=== PATIENT | female | born 1985 | race Caucasian/White ===

== ENCOUNTER 2016-08-28 09:44 | Emergency (ER) | payer OTHER ==
--- NOTE | 2016-08-28 10:09 | ED ---
General Adult HPI - General Chief complaint: Psychiatric Symptoms Stated complaint: Mental Health Time Seen by Provider: 08/28/16 09:57 Source: patient, RN notes reviewed Mode of arrival: ambulatory Limitations: no limitations - History of Present Illness Initial comments: Patient 31-year-old female who presents emergency room today with a chief complaint of suicidal ideation. She denies any specific plan states she is having thoughts of hurting herself. She states that increased yesterday. States she's been feeling down and depressed since the first the year when her boyfriend of 15 years overdosed. Patient states there is a counselor that she does follow-up with your [place] a regular basis. She denies any homicidal thoughts or plans. She denies any other physical complaints. Patient denies any recent fever, chills, shortness of breath, chest pain, back pain, abdominal pain, nausea or vomiting, numbness or tingling, dysuria or hematuria, constipation or diarrhea, headaches or visual changes, or any other complaints. - Related Data Home Medications Medication Instructions Recorded Confirmed Methadone HCl [Methadone Intensol] 85 mg PO QAM 04/18/16 08/28/16 Penicillin V Potassium [Pen Vee K] 500 mg PO QID 04/18/16 08/28/16 Allergies Allergy/AdvReac Type Severity Reaction Status Date / Time No Known Allergies Allergy Verified 08/28/16 10:33 Review of Systems ROS Statement: Those systems with pertinent positive or pertinent negative responses have been documented in the HPI. ROS Other: All systems not noted in ROS Statement are negative. Past Medical History Past Medical History: No Reported History Additional Past Medical History / Comment(s): migraine History of Any Multi-Drug Resistant Organisms: None Reported Past Surgical History: No Surgical Hx Reported Past Psychological History: Anxiety, Depression Smoking Status: Current every day smoker Past Alcohol Use History: None Reported Past Drug Use History: Heroin General Exam - General Exam Comments Initial Comments: General: The patient is awake and alert, in no distress, and does not appear acutely ill. Eye: Pupils are equal, round and reactive to light, extra-ocular movements are intact. No nystagmus. There is normal conjunctiva bilaterally. No signs of icterus. Ears, nose, mouth and throat: There are moist mucous membranes and no oral lesions. Neck: The neck is supple, there is no tenderness or JVD. Cardiovascular: There is a regular rate and rhythm. No murmur, rub or gallop is appreciated. Respiratory: Lungs are clear to auscultation, respirations are non-labored, breath sounds are equal. No wheezes, stridor, rales, or rhonchi. Musculoskeletal: Normal ROM, no tenderness. Strength 5/5. Sensation intact. Pulses equal bilaterally 2+. Neurological: A&O x 3. CN II-XII intact, There are no obvious motor or sensory deficits. Coordination appears grossly intact. Speech is normal. Skin: Skin is warm and dry and no rashes or lesions are noted. Psychiatric: Cooperative, appropriate mood & affect, normal judgment. Limitations: no limitations Course Vital Signs 08/28/16 09:48 Temperature 98.3 F Pulse Rate 101 H Respiratory 18 Rate Blood Pressure 136/93 O2 Sat by Pulse 97 Oximetry Medical Decision Making - Medical Decision Making Patient has been examined here in the emergency room by mental. The recommendation at patient can follow up outpatient. Patient is comfortable with this plan. They plan follow-up with her tomorrow. Patient has been advised that she may return to emergency room at any time if any symptoms increase or worsen. She states understanding and is in agreement. - Lab Data Lab Results 08/28/16 08/28/16 Range/Units 10:25 10:25 Urine HCG, Qual Not Detected (Not Detectd) Urine Opiates Screen Not Detected (NotDetected) Ur Oxycodone Screen Not Detected (NotDetected) Urine Methadone Screen Detected H (NotDetected) Ur Propoxyphene Screen Not Detected (NotDetected) Ur Barbiturates Screen Not Detected (NotDetected) U Tricyclic Antidepress Not Detected (NotDetected) Ur Phencyclidine Scrn Not Detected (NotDetected) Ur Amphetamines Screen Not Detected (NotDetected) U Methamphetamines Scrn Not Detected (NotDetected) U Benzodiazepines Scrn Not Detected (NotDetected) Urine Cocaine Screen Not Detected (NotDetected) U Marijuana (THC) Screen Not Detected (NotDetected) Disposition Clinical Impression: Depression Disposition: HOME SELF-CARE Condition: Stable Instructions: Depression (ED) Additional Instructions: Please follow-up with mental health as discussed. Please return here to emergency room if any symptoms increase or worsen or for any other concerns. Time of Disposition: 12:56
[2016-08-28 13:16] VITALS: BP 110/57; PULSE 74; RESP 16; TEMP 97.7
== END 2016-08-28 13:16 | disposition home or self-care (01) ==
LOC: EC 09:44
DX: F32.9 Major depressive disorder, single episode, unspecified (principal); Z79.899 Other long term (current) drug therapy; F17.200 Nicotine dependence, unspecified, uncomplicated
CPT/HCPCS: 80306; 81025; 82075; 99285

== ENCOUNTER 2016-11-15 14:30 | Emergency (ER) | payer OTHER ==
[2016-11-15 14:54] VITALS: TEMP 100.3
[2016-11-15] MEDS ORDERED: SODIUM CHLORIDE 0.9% 1,000 ML IV ONE (15:03)
[2016-11-15] MEDS ORDERED: diphenhydrAMINE 50 MG/ML 1 ML VIAL IVP STA (15:03)
[2016-11-15] MEDS ORDERED: KETOROLAC 30 MG/ML 1 ML VIAL IVP STA (15:03)
[2016-11-15] MEDS ORDERED: PROMETHAZINE INJ 25 MG in SODIUM CHLORIDE 0.9% 50 ML IVPB STA (15:03)
--- NOTE | 2016-11-15 15:05 | ED ---
General Adult HPI - General Chief complaint: Headache Stated complaint: Migraine Time Seen by Provider: 11/15/16 14:55 Source: patient, RN notes reviewed Mode of arrival: ambulatory Limitations: no limitations - History of Present Illness Initial comments: 31-year-old female presenting for headache. Patient states that this feels similar to her prior migraine-type headaches. She states she hasn't had a migraine in several months. She has not tried any medication at this point. She states she woke up with a headache today and has been persistent throughout the day. She denies any focal neurological deficits. She also states she's had some nausea and vomiting associated. She denies any abdominal pain. She states she feels some chills but denies any specific fevers. She denies any cough or shortness of breath or chest pain. - Related Data Home Medications Medication Instructions Recorded Confirmed Methadone HCl [Methadone Intensol] 85 mg PO QAM 04/18/16 11/15/16 Previous Rx's Medication Instructions Recorded Ibuprofen [Motrin] 800 mg PO Q8HR PRN #21 tab 11/15/16 Prochlorperazine [Compazine] 10 mg PO Q8H PRN #12 tab 11/15/16 diphenhydrAMINE [Benadryl] 25 mg PO TID PRN #12 capsule 11/15/16 Allergies Allergy/AdvReac Type Severity Reaction Status Date / Time No Known Allergies Allergy Verified 11/15/16 15:49 Review of Systems ROS Statement: Those systems with pertinent positive or pertinent negative responses have been documented in the HPI. ROS Other: All systems not noted in ROS Statement are negative. Past Medical History Past Medical History: No Reported History Additional Past Medical History / Comment(s): migraine History of Any Multi-Drug Resistant Organisms: None Reported Past Surgical History: No Surgical Hx Reported Past Psychological History: Anxiety, Depression Smoking Status: Current every day smoker Past Alcohol Use History: None Reported Past Drug Use History: Heroin General Exam - General Exam Comments Initial Comments: General: Awake and Alert. No acute distress. Does not appear acutely ill. Eyes: MICHELE, EOM intact. No nystagmus. No scleral icterus. HENT: Atraumatic, normocephalic. Mucous membranes moist. Trachea midline. Neck: The neck is supple, there is no tenderness or JVD. Cardiovascular: Regular rate and rhythm. No murmur, rub, or gallop is appreciated. Distal pulses intact. Respiratory: Lungs are clear to auscultation bilaterally. No wheezes, rales, rhonchi. No respiratory distress. Gastrointestinal: Soft, Nontender. No rebound or guarding. Non-distended. No masses or organomegaly noted. No CVA tenderness. Musculoskeletal: No tenderness. Normal ROM. No gross deformity. No strength deficits. Neurological: A&Ox3. CN II-XII grossly intact, There are no obvious motor or sensory deficits. Coordination appears grossly intact. Speech is normal. Skin: Skin is warm and dry and no rashes or lesions are noted. Psychiatric: Cooperative, appropriate mood & affect, normal judgment. Limitations: no limitations Course Vital Signs 11/15/16 11/15/16 11/15/16 14:53 16:00 16:45 Temperature 100.3 F H Pulse Rate 108 H 83 79 Respiratory 20 16 16 Rate Blood Pressure 108/61 100/53 107/57 O2 Sat by Pulse 99 94 L 93 L Oximetry Medical Decision Making - Medical Decision Making 31-year-old female presenting for headache. Patient with history of migraines similar headaches in the past. No neurological deficits noted on exam. Initial vitals are noted to have low-grade fever and tachycardia. No meningeal signs on exam. Exam with lower suspicion for meningitis this time, however basic lab work and influenza testing were ordered. Headache cocktail and IV fluids ordered. Lab work with leukocytosis of uncertain etiology this time, may be reactive to nausea and vomiting. BMP stable. Influenza negative. Patient was reevaluated and states her headache is significantly improved. States she is feeling much better overall. Updated on results and nonspecific leukocytosis. Discussed in the setting of low-grade fever concern for possible meningitis, although clinical symptoms with lower suspicion at this time as well as with resolution of headache. Patient was offered LP at this time, patient declines. Shared decision-making for home trial of medications for symptomatically management. Discussed immediate return to the ED with any worsening symptoms or high fevers for reevaluation and LP at that time. Discussed close follow-up with PCP. Discussed concerning signs symptoms requiring immediate return to the ED. Patient is agreeable with plan and discharge home. - Lab Data Result diagrams: 11/15/16 15:22 11/15/16 15:22 Lab Results 11/15/16 11/15/16 11/15/16 Range/Units 15:21 15:22 15:22 WBC 14.8 H (3.8-10.6) k/uL RBC 4.57 (3.80-5.40) m/uL Hgb 13.8 (11.4-16.0) gm/dL Hct 40.1 (34.0-46.0) % MCV 87.8 (80.0-100.0) fL MCH 30.3 (25.0-35.0) pg MCHC 34.5 (31.0-37.0) g/dL RDW 12.6 (11.5-15.5) % Plt Count 260 (150-450) k/uL Neutrophils % 91 % Lymphocytes % 4 % Monocytes % 3 % Eosinophils % 1 % Basophils % 0 % Neutrophils # 13.5 H (1.3-7.7) k/uL Lymphocytes # 0.6 L (1.0-4.8) k/uL Monocytes # 0.5 (0-1.0) k/uL Eosinophils # 0.1 (0-0.7) k/uL Basophils # 0.1 (0-0.2) k/uL Sodium 140 (137-145) mmol/L Potassium 5.0 (3.5-5.1) mmol/L Chloride 102 (98-107) mmol/L Carbon Dioxide 27 (22-30) mmol/L Anion Gap 11 mmol/L BUN 12 (7-17) mg/dL Creatinine 0.67 (0.52-1.04) mg/dL Est GFR (MDRD) Af Amer >60 (>60 ml/min/1.73 sqM) Est GFR (MDRD) Non-Af >60 (>60 ml/min/1.73 sqM) Glucose 90 (74-99) mg/dL Calcium 9.6 (8.4-10.2) mg/dL Influenza Type A RNA Not Detected (Not Detectd) Influenza Type B (PCR) Not Detected (Not Detectd) Disposition Clinical Impression: Nonintractable headache, Leukocytosis, Nausea and vomiting Disposition: HOME SELF-CARE Condition: Stable Instructions: Acute Headache (ED), Acute Nausea and Vomiting (ED) Additional Instructions: If your symptoms worsen or you start spiking high fevers, please return to the ER right away for reevaluation and possible lumbar puncture to rule out meningitis. Prescriptions: Ibuprofen [Motrin] 800 mg PO Q8HR PRN #21 tab PRN Reason: Pain Prochlorperazine [Compazine] 10 mg PO Q8H PRN #12 tab PRN Reason: headache with benadryl diphenhydrAMINE [Benadryl] 25 mg PO TID PRN #12 capsule PRN Reason: headache with compazine Referrals: None,Stated [Primary Care Provider] - 1-2 days Time of Disposition: 17:00
[2016-11-15 15:42] LABS: Anion Gap 11 mmol/L; Blood Urea Nitrogen 12 mg/dL (7-17); Calcium 9.6 mg/dL (8.4-10.2); Carbon Dioxide 27 mmol/L (22-30); Chloride 102 mmol/L (98-107); Glucose 90 mg/dL (74-99); Non-African American GFR(MDRD) >60 (>60 ml/min/1.73 sqM); Sodium 140 mmol/L (137-145)
[2016-11-15 16:07] LABS: Basophils # (A) 0.1 k/uL (0-0.2); Basophils % (A) 0 %; CH 28.9; Eosinophils # (A) 0.1 k/uL (0-0.7); Eosinophils % (A) 1 %; HCT 40.1 % (34.0-46.0); HDW 2.46; HGB 13.8 gm/dL (11.4-16.0); Luc % (Auto) 1; Lymphocytes # (A) 0.6 k/uL (1.0-4.8); Lymphocytes % (A) 4 %; MCH 30.3 pg (25.0-35.0); MCHC 34.5 g/dL (31.0-37.0); MCV 87.8 fL (80.0-100.0); Mean Platelet Volume 6.6; Monocytes # (A) 0.5 k/uL (0-1.0); Monocytes % (A) 3 %; Neutrophils # (A) 13.5 k/uL (1.3-7.7); Neutrophils % (A) 91 %; RBC 4.57 m/uL (3.80-5.40); RDW 12.6 % (11.5-15.5); WBC 14.8 k/uL (3.8-10.6); WBC (Perox) 14.82
[2016-11-15 16:45] VITALS: RESP 16
[2016-11-15 16:46] VITALS: BP 107/57; PULSE 79
== END 2016-11-15 16:52 | disposition home or self-care (01) ==
LOC: EC 14:30
DX: R51 Headache (principal); D72.829 Elevated white blood cell count, unspecified; R11.2 Nausea with vomiting, unspecified; F17.200 Nicotine dependence, unspecified, uncomplicated; Z79.891 Long term (current) use of opiate analgesic
CPT/HCPCS: 36415; 80048; 85025; 87502; 99284; 96374; 96375 ×2; 96361; J1200; J2550; J1885

== ENCOUNTER 2016-11-16 09:51 | Emergency (ER) | payer OTHER ==
[2016-11-16 10:01] VITALS: RESP 18
[2016-11-16] MEDS ORDERED: METOCLOPRAMIDE 5 MG/ML 2 ML VIAL IVP STA (10:22)
[2016-11-16] MEDS ORDERED: KETOROLAC 30 MG/ML 1 ML VIAL IVP STA (10:22)
[2016-11-16] MEDS ORDERED: SODIUM CHLORIDE 0.9% 1,000 ML IV STA ×2 (10:22)
[2016-11-16] MEDS ORDERED: DEXAMETHASONE SOD PHOSPHATE 10 MG/ML 1 ML VIAL IV STA (10:23)
[2016-11-16] MEDS ORDERED: MAGNESIUM SULFATE-D5W PMX 1 GM in DEXTROSE/WATER 1 100ML.BAG IVPB ONE (10:23)
--- NOTE | 2016-11-16 10:30 | ED ---
Headache HPI - General Chief Complaint: Headache Stated Complaint: Headache Time Seen by Provider: 11/16/16 10:03 Mode of arrival: ambulatory Limitations: no limitations - History of Present Illness Initial Comments: This 31-year-old white female presents complaining of a headache. She states it is a pressure-like intermittent headache. She has had it intermittently for the last 1 week. Is more in the frontal region. It was gradual in onset. She does have a history of migraine headaches and this is very similar to her previous migraine headaches. She states that it is quite improved at this time. She does have some slight pain present to her right superior neck. She has no pain with movement of her neck. She also complains of some low back pain which seemed to start this morning. She states that it was radiating to her both legs and abdomen. It is a sharp pain. She denies any prior similar incidents. She denies any injuries. She states that this is improved at this time as well. She denies any lower extremity weakness. She was seen in the emergency department yesterday for headache and apparently had a temperature of 100.3 and a white blood cell count of 14.8. She received Phenergan and Toradol and Benadryl and had significant relief of symptoms and was eventually discharged. She denies any fever or chills. She did take some Motrin this morning with some relief. 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 She adamantly denies any IV drug abuse even after multiple questioning in this regard. No other complaints or modifying factors. - Related Data Home Medications Medication Instructions Recorded Confirmed Methadone HCl [Methadone Intensol] 85 mg PO QAM 04/18/16 11/16/16 Previous Rx's Medication Instructions Recorded Ibuprofen [Motrin] 800 mg PO Q8HR PRN #21 tab 11/15/16 Prochlorperazine [Compazine] 10 mg PO Q8H PRN #12 tab 11/15/16 diphenhydrAMINE [Benadryl] 25 mg PO TID PRN #12 capsule 11/15/16 Allergies Allergy/AdvReac Type Severity Reaction Status Date / Time No Known Allergies Allergy Verified 11/16/16 10:00 Review of Systems ROS Statement: Those systems with pertinent positive or pertinent negative responses have been documented in the HPI. ROS Other: All systems not noted in ROS Statement are negative. Past Medical History Past Medical History: No Reported History Additional Past Medical History / Comment(s): migraine History of Any Multi-Drug Resistant Organisms: None Reported Past Surgical History: No Surgical Hx Reported Past Psychological History: Anxiety, Depression Smoking Status: Current every day smoker Past Alcohol Use History: None Reported Past Drug Use History: Heroin General Exam - General Exam Comments Initial Comments: GENERAL: The patient is well nourished and well hydrated. VITAL SIGNS: Heart rate, blood pressure, respiratory rate reviewed as recorded in nurse's notes. EYES: Pupils are round and reactive. Extraocular movements are intact. No conjunctival / lid redness or swelling. ENT: No external evidence of injury, swelling, or ecchymosis. Airway is patent. Throat is clear. NECK: There is very slight tenderness present to the right superior cervical spine musculature. There is no meningeal signs noted. There is excellent range of motion of the neck without any difficulty. No swelling or evidence of injury. No subcutaneous emphysema. Trachea is midline. No thyroid mass. HEART: Regular rate and rhythm. Good peripheral pulses. LUNGS/CHEST: Breath sounds clear and equal bilaterally. No rales, rhonchi, or wheezes. No ecchymosis, subcutaneous emphysema, or tenderness. ABDOMEN: Abdomen soft without tenderness. No palpable masses or organomegaly. No peritoneal signs. No abdominal wall swelling or ecchymosis. EXTREMITIES: No extremity tenderness. Normal muscle tone and function. There is some scant tenderness noted to the right paralumbar musculature. There is no direct tenderness over the vertebrae. Strength is intact for upper and lower extremities. NEUROLOGIC: Sensation is grossly intact. Cranial nerve exam reveals face is symmetrical, tongue is midline, speech is clear. SKIN: No abrasions or ecchymosis is noted. No induration or masses noted. PSYCHIATRIC: Alert and oriented. Appropriate behavior and judgment. Limitations: no limitations Course Vital Signs 11/16/16 09:58 Temperature 98.7 F Pulse Rate 103 H Respiratory 18 Rate Blood Pressure 138/65 O2 Sat by Pulse 96 Oximetry Medical Decision Making - Medical Decision Making The patient was seen and examined. All diagnostics were reviewed. An IV is started patient was given some Reglan, Toradol, magnesium, and Decadron intravenously. She is well-hydrated. She is feeling remarkably improved on recheck and states that her headache is only very mild at this time. He scan of the brain was negative. The CBC is normal with a normal white blood cell count. There is no evidence of fever or has been evidence of infection. There is no meningeal signs. There is no clinical signs of epidural abscess or meningitis. Is felt as though she does have a migraine and some low back pain which is apparently improved and almost resolved at this time. Is felt as though she is stable for discharge and leaves in no distress. She's never been on Imitrex in a trial will be given of this medication. - Lab Data Result diagrams: 11/16/16 10:47 Lab Results 11/16/16 Range/Units 10:47 WBC 6.9 (3.8-10.6) k/uL RBC 4.47 (3.80-5.40) m/uL Hgb 13.3 (11.4-16.0) gm/dL Hct 41.1 (34.0-46.0) % MCV 91.9 (80.0-100.0) fL MCH 29.8 (25.0-35.0) pg MCHC 32.5 (31.0-37.0) g/dL RDW 13.2 (11.5-15.5) % Plt Count 260 (150-450) k/uL Neutrophils % 86 % Lymphocytes % 10 % Monocytes % 1 % Eosinophils % 2 % Basophils % 1 % Neutrophils # 6.0 (1.3-7.7) k/uL Lymphocytes # 0.7 L (1.0-4.8) k/uL Monocytes # 0.1 (0-1.0) k/uL Eosinophils # 0.1 (0-0.7) k/uL Basophils # 0.0 (0-0.2) k/uL Disposition Clinical Impression: Migraine, Low back pain Disposition: HOME SELF-CARE Condition: Good Instructions: Migraine Headache (ED), Acute Low Back Pain (ED) Referrals: None,Stated [Primary Care Provider] - 1-2 days Time of Disposition: 11:43
[2016-11-16 11:11] LABS: Basophils % (A) 1 %; CH 29.7; CHCM 32.5; Eosinophils # (A) 0.1 k/uL (0-0.7); Eosinophils % (A) 2 %; HCT 41.1 % (34.0-46.0); HDW 2.35; HGB 13.3 gm/dL (11.4-16.0); Luc # (Auto) 0.07; Luc % (Auto) 1; Lymphocytes # (A) 0.7 k/uL (1.0-4.8); Lymphocytes % (A) 10 %; MCH 29.8 pg (25.0-35.0); MCHC 32.5 g/dL (31.0-37.0); MCV 91.9 fL (80.0-100.0); Mean Platelet Volume 6.7; Monocytes # (A) 0.1 k/uL (0-1.0); Monocytes % (A) 1 %; Neutrophils % (A) 86 %; RBC 4.47 m/uL (3.80-5.40); RDW 13.2 % (11.5-15.5); WBC 6.9 k/uL (3.8-10.6); WBC (Perox) 7.07
--- NOTE | 2016-11-16 11:30 | CT ---
EXAMINATION TYPE: CT brain wo con DATE OF EXAM: 11/16/2016 11:17 AM COMPARISON: NONE HISTORY: Headache per order. Persistent headache with low back pain radiating into right leg per margaret ent. CT DLP: 999.8 mGycm. Automated Exposure Control for Dose Reduction was Utilized. TECHNIQUE: CT scan of the head is performed without contrast. FINDINGS: There is no acute intracranial hemorrhage, mass effect, or midline shift identified. The ventricles and sulci are within normal limits in size. James-white matter differentiation is maintain ed The globes are intact and the visualized sinuses are clear. IMPRESSION: No acute intracranial hemorrhage, mass effect, or midline shift is seen. Unremarkable st udy.
--- NOTE | 2016-11-16 11:45 | ED ---
Medical Decision Making - Lab Data Result diagrams: 11/16/16 10:47 Lab Results 11/16/16 Range/Units 10:47 WBC 6.9 (3.8-10.6) k/uL RBC 4.47 (3.80-5.40) m/uL Hgb 13.3 (11.4-16.0) gm/dL Hct 41.1 (34.0-46.0) % MCV 91.9 (80.0-100.0) fL MCH 29.8 (25.0-35.0) pg MCHC 32.5 (31.0-37.0) g/dL RDW 13.2 (11.5-15.5) % Plt Count 260 (150-450) k/uL Neutrophils % 86 % Lymphocytes % 10 % Monocytes % 1 % Eosinophils % 2 % Basophils % 1 % Neutrophils # 6.0 (1.3-7.7) k/uL Lymphocytes # 0.7 L (1.0-4.8) k/uL Monocytes # 0.1 (0-1.0) k/uL Eosinophils # 0.1 (0-0.7) k/uL Basophils # 0.0 (0-0.2) k/uL Disposition Clinical Impression: Migraine, Low back pain Disposition: HOME SELF-CARE Condition: Good Instructions: Migraine Headache (ED), Acute Low Back Pain (ED) Prescriptions: SUMAtriptan SUCCINATE [Imitrex] 50 mg PO ONCE PRN #10 tablet PRN Reason: Headache Referrals: None,Stated [Primary Care Provider] - 1-2 days
[2016-11-16 12:09] VITALS: BP 101/56; PULSE 79; TEMP 98
== END 2016-11-16 12:09 | disposition home or self-care (01) ==
LOC: EC 09:51
DX: G43.909 Migraine, unspecified, not intractable, without status migrainosus (principal); M54.5 Low back pain; M54.2 Cervicalgia; F17.200 Nicotine dependence, unspecified, uncomplicated; Z79.891 Long term (current) use of opiate analgesic
CPT/HCPCS: 99284 ×2; 96365 ×2; 96375 ×4; 36415; 85025; 70450; J1100; J2765; J1885; J3475

== ENCOUNTER 2017-02-21 12:41 | Emergency (ER) | payer OTHER ==
[2017-02-21] MEDS ORDERED: SODIUM CHLORIDE 0.9% 1,000 ML IV ONE (13:48)
[2017-02-21] MEDS ORDERED: LORazepam 1 MG TAB PO STA (13:48)
--- NOTE | 2017-02-21 13:52 | ED ---
Anxiety HPI - General Chief Complaint: Anxiety Stated Complaint: anxiety Time Seen by Provider: 02/21/17 13:30 Source: patient Mode of arrival: ambulatory - History of Present Illness Initial Comments: Jaye 31-year-old female with a past medical history of anxiety depression and previous history of IV heroin abuse. She presents to the emergency department today for evaluation of anxiety and "not feeling right." Patient reports that for the past 2-3 days she has felt very anxious, she reports feeling all over shaking sensation and a discomfort in her chest. She reports that she feels like she is breathing fast and can't catch her breath. She reports that yesterday she was able to practice some columning breathing techniques and talk to her self and calm herself however today that was not successful. Patient reports that despite feeling like this for 3 days she has been able to eat and drink and sleep on her regular schedule. She reports that she was previously on medications for anxiety and depression but currently is not being treated. Patient reports that she did previously use IV drugs but has been clean for greater than 5 years. She is still a 1 pack-a-day smoker. She denies any history of DVT or PE. She denies any cardiac history or family history of early cardiac disease. She denies any pain in her chest but does report that she feels uncomfortable. She reports she feels nauseated but has not had any vomiting, has not had any abdominal pain and has been able tolerate oral intake. Patient denies any inciting event to cause this trigger. She reports she lives at home with her 2 children ages 11 and 10. She currently does not have any psychiatric follow-up or care. - Related Data Home Medications: Home Medications Medication Instructions Recorded Confirmed Methadone HCl [Methadone Intensol] 85 mg PO QAM 04/18/16 02/21/17 Allergies/Adverse Reactions: Allergies Allergy/AdvReac Type Severity Reaction Status Date / Time No Known Allergies Allergy Verified 02/21/17 13:54 Review of Systems ROS Statement: Those systems with pertinent positive or pertinent negative responses have been documented in the HPI. ROS Other: All systems not noted in ROS Statement are negative. Constitutional: Denies: fever, chills, weakness Eyes: Denies: vision change Respiratory: Reports: dyspnea. Denies: cough, wheezes, hemoptysis, stridor Cardiovascular: Reports: palpitations. Denies: chest pain, dyspnea on exertion , orthopnea Endocrine: Denies: fatigue Gastrointestinal: Reports: nausea. Denies: abdominal pain, vomiting, diarrhea, constipation Genitourinary: Reports: abnormal menses (Last period greater than 2 months ago, reports being not sexually active and concern for ST Iser ). Denies: urgency, dysuria Musculoskeletal: Denies: back pain Skin: Denies: rash, lesions Neurological: Denies: headache, weakness Psychiatric: Reports: anxiety, depression. Denies: auditory hallucinations, visual hallucinations, homicidal thoughts, suicidal thoughts Hematological/Lymphatic: Denies: easy bleeding, easy bruising Past Medical History Past Medical History: No Reported History Additional Past Medical History / Comment(s): migraine History of Any Multi-Drug Resistant Organisms: None Reported Past Surgical History: No Surgical Hx Reported Past Psychological History: Anxiety, Depression Smoking Status: Current every day smoker Past Alcohol Use History: None Reported Past Drug Use History: Heroin General Exam Limitations: no limitations General appearance: anxious Head exam: Present: atraumatic, normocephalic, normal inspection Eye exam: Present: normal appearance ENT exam: Present: mucous membranes moist Neck exam: Present: full ROM Respiratory exam: Present: normal lung sounds bilaterally, other (Tachypnea). Absent: respiratory distress, wheezes Cardiovascular Exam: Present: regular rate, normal rhythm GI/Abdominal exam: Present: soft. Absent: distended, tenderness Extremities exam: Present: normal inspection, full ROM, normal capillary refill. Absent: tenderness, pedal edema, joint swelling, calf tenderness Back exam: Present: normal inspection Neurological exam: Present: alert, oriented X3 Psychiatric exam: Present: agitated, anxious Skin exam: Present: warm, intact, normal color, diaphoretic. Absent: rash Course Vital Signs 02/21/17 02/21/17 02/21/17 12:54 14:01 16:11 Temperature 99 F 97.6 F 97.7 F Pulse Rate 88 76 76 Respiratory 20 18 18 Rate Blood Pressure 143/86 110/55 104/55 O2 Sat by Pulse 98 98 96 Oximetry Medical Decision Making - Medical Decision Making She was seen and evaluated Vital signs were reviewed History was obtained from the patient Labs IV fluids and anxiolytics were ordered EKG with normal sinus rhythm, rate is 64 normal intervals no acute ST elevations or depressions. Patient reported improvement in her anxiety after sitting quietly in a darkened room for approximately one hour. However I will proceed with a workup Labs were obtained. An IV was not placed therefore the patient did not receive any IV fluids Labs were reviewed D-dimer is not elevated Patient reported the Ativan made her feel sleepy and relaxed. However her anxiety does return when she is awake. Patient reports she does follow with a counselor and saw her counselor last Saturday, advised her to call her counselor for further follow-up and started I will refer her to primary care physician so that she can establish care and be referred to psychiatry for further evaluation Patient expressed understanding and agreement with this plan. Patient's questions were answered to the best my ability and the patient was discharged home. - Lab Data Result diagrams: 02/21/17 15:13 02/21/17 15:13 Lab Results 02/21/17 02/21/17 02/21/17 Range/Units 15:13 15: 15:13 WBC 13.1 H (3.8-10.6) k/uL RBC 4.57 (3.80-5.40) m/uL Hgb 14.0 (11.4-16.0) gm/dL Hct 40.0 (34.0-46.0) % MCV 87.5 (80.0-100.0) fL MCH 30.7 (25.0-35.0) pg MCHC 35.1 (31.0-37.0) g/dL RDW 12.7 (11.5-15.5) % Plt Count 295 (150-450) k/uL Neutrophils % 79 % Lymphocytes % 15 % Monocytes % 3 % Eosinophils % 1 % Basophils % 0 % Neutrophils # 10.3 H (1.3-7.7) k/uL Lymphocytes # 2.0 (1.0-4.8) k/uL Monocytes # 0.4 (0-1.0) k/uL Eosinophils # 0.1 (0-0.7) k/uL Basophils # 0.1 (0-0.2) k/uL D-Dimer 0.43 (<0.60) mg/L FEU Sodium 142 (137-145) mmol/L Potassium 4.3 (3.5-5.1) mmol/L Chloride 106 (98-107) mmol/L Carbon Dioxide 26 (22-30) mmol/L Anion Gap 10 mmol/L BUN 10 (7-17) mg/dL Creatinine 0.60 (0.52-1.04) mg/dL Est GFR (MDRD) Af Amer >60 (>60 ml/min/1.73 sqM) Est GFR (MDRD) Non-Af >60 (>60 ml/min/1.73 sqM) Glucose 92 (74-99) mg/dL Calcium 9.4 (8.4-10.2) mg/dL Urine Color Urine Appearance (Clear) Urine pH (5.0-8.0) Ur Specific [place] (1.001-1.035) Urine Protein (Negative) Urine Glucose (UA) (Negative) Urine Ketones (Negative) Urine Blood (Negative) Urine Nitrite (Negative) Urine Bilirubin (Negative) Urine Urobilinogen (<2.0) mg/dL Ur Leukocyte Esterase (Negative) Urine RBC (0-5) /hpf Urine WBC (0-5) /hpf Ur Squamous Epith Cells (0-4) /hpf Amorphous Sediment (None) /hpf Urine Mucus (None) /hpf Urine HCG, Qual (Not Detectd) 02/21/17 02/21/17 Range/Units 15:50 15:50 WBC (3.8-10.6) k/uL RBC (3.80-5.40) m/uL Hgb (11.4-16.0) gm/dL Hct (34.0-46.0) % MCV (80.0-100.0) fL MCH (25.0-35.0) pg MCHC (31.0-37.0) g/dL RDW (11.5-15.5) % Plt Count (150-450) k/uL Neutrophils % % Lymphocytes % % Monocytes % % Eosinophils % % Basophils % % Neutrophils # (1.3-7.7) k/uL Lymphocytes # (1.0-4.8) k/uL Monocytes # (0-1.0) k/uL Eosinophils # (0-0.7) k/uL Basophils # (0-0.2) k/uL D-Dimer (<0.60) mg/L FEU Sodium (137-145) mmol/L Potassium (3.5-5.1) mmol/L Chloride (98-107) mmol/L Carbon Dioxide (22-30) mmol/L Anion Gap mmol/L BUN (7-17) mg/dL Creatinine (0.52-1.04) mg/dL Est GFR (MDRD) Af Amer (>60 ml/min/1.73 sqM) Est GFR (MDRD) Non-Af (>60 ml/min/1.73 sqM) Glucose (74-99) mg/dL Calcium (8.4-10.2) mg/dL Urine Color Yellow Urine Appearance Cloudy H (Clear) Urine pH 8.5 H (5.0-8.0) Ur Specific [place] 1.018 (1.001-1.035) Urine Protein Trace H (Negative) Urine Glucose (UA) Negative (Negative) Urine Ketones Negative (Negative) Urine Blood Negative (Negative) Urine Nitrite Negative (Negative) Urine Bilirubin Negative (Negative) Urine Urobilinogen <2.0 (<2.0) mg/dL Ur Leukocyte Esterase Trace H (Negative) Urine RBC <1 (0-5) /hpf Urine WBC 4 (0-5) /hpf Ur Squamous Epith Cells 15 H (0-4) /hpf Amorphous Sediment Rare H (None) /hpf Urine Mucus Rare H (None) /hpf Urine HCG, Qual Not Detected (Not Detectd) Disposition Clinical Impression: Anxiety, generalized Disposition: HOME SELF-CARE Instructions: Generalized Anxiety Disorder (ED), Depression (ED), Grief and Loss (ED) Additional Instructions: Call your counselor tomorrow for follow up visit Referrals: None,Stated [Primary Care Provider] - 1-2 days Ayesha Lau MD [STAFF PHYSICIAN] - 1-2 days Time of Disposition: 16:45
[2017-02-21 15:27] LABS: Basophils # (A) 0.1 k/uL (0-0.2); Basophils % (A) 0 %; CH 29.6; CHCM 33.9; Eosinophils # (A) 0.1 k/uL (0-0.7); Eosinophils % (A) 1 %; HDW 2.54; Luc # (Auto) 0.18; Luc % (Auto) 1; Lymphocytes % (A) 15 %; MCH 30.7 pg (25.0-35.0); MCHC 35.1 g/dL (31.0-37.0); MCV 87.5 fL (80.0-100.0); Monocytes # (A) 0.4 k/uL (0-1.0); Monocytes % (A) 3 %; Neutrophils # (A) 10.3 k/uL (1.3-7.7); Neutrophils % (A) 79 %; RBC 4.57 m/uL (3.80-5.40); RDW 12.7 % (11.5-15.5); WBC 13.1 k/uL (3.8-10.6); WBC (Perox) 12.47
[2017-02-21 15:41] LABS: Anion Gap 10 mmol/L; Blood Urea Nitrogen 10 mg/dL (7-17); Calcium 9.4 mg/dL (8.4-10.2); Carbon Dioxide 26 mmol/L (22-30); Chloride 106 mmol/L (98-107); Glucose 92 mg/dL (74-99); Non-African American GFR(MDRD) >60 (>60 ml/min/1.73 sqM); Potassium 4.3 mmol/L (3.5-5.1); Sodium 142 mmol/L (137-145)
[2017-02-21 16:13] VITALS: TEMP 97.7
[2017-02-21 16:25] LABS: Amorphous Sediment,Urine Rare /hpf; Appearance,Urine Cloudy (Clear); Bilirubin,Urine Negative (Negative); Glucose,Urine (UA) Negative (Negative); Ketones,Urine Negative (Negative); Leukocyte Esterase,Urine Trace (Negative); Mucus,Urine Rare /hpf; Nitrite,Urine Negative (Negative); PH, Urine 8.5 (5.0-8.0); Particle Count 4790; Protein,Urine Trace (Negative); RBC,Urine <1 /hpf (0-5); Specific Gravity,Urine 1.018 (1.001-1.035); Squamous Epithelial Cell,Urine 15 /hpf (0-4); UA Billing (MACRO vs. MICRO) MICRO; Urobilinogen,Urine <2.0 mg/dL (<2.0); WBC,Urine 4 /hpf (0-5)
[2017-02-21 17:03] VITALS: BP 117/56; PULSE 78; RESP 16
== END 2017-02-21 17:03 | disposition home or self-care (01) ==
LOC: EC 12:41
DX: F41.9 Anxiety disorder, unspecified (principal); R45.1 Restlessness and agitation; R06.82 Tachypnea, not elsewhere classified; F32.9 Major depressive disorder, single episode, unspecified; Z79.899 Other long term (current) drug therapy; F17.200 Nicotine dependence, unspecified, uncomplicated; Z86.69 Personal history of other diseases of the nervous system and sense organs
CPT/HCPCS: 36415; 80048; 81001; 81025; 85025; 85379; 99283

== ENCOUNTER 2017-03-06 11:54 | Inpatient (IN) | payer MEDICAID, OTHER ==
--- NOTE | 2017-03-06 12:26 | ED ---
Psych HPI - General Chief Complaint: Psychiatric Symptoms Stated Complaint: mental health suicidal Time Seen by Provider: 03/06/17 12:14 Source: patient, RN notes reviewed Mode of arrival: ambulatory - History of Present Illness Initial Comments: This is a 31-year-old female with a one to one half year history of anxiety and depression who states she's feeling depressed and anxious today. She does have a history of heroin abuse and has been on methadone for quite some time he does take methadone with feels is not working. She was treated about a week ago for anxiety with a single dose of Xanax. She does admit to taking a 1 mg Xanax this morning it did not help she states. She is feeling depressed she is feeling suicidal suicidal overdose and kill herself. She cannot relate any particular episode or incident that is sparking this current depression. She denies any other medical illnesses or issues at this time. She denies any alcohol or other street drugs she does admit to smoking cigarettes. MD Complaint: suicidal ideation, feels depressed - Related Data Home Medications Medication Instructions Recorded Confirmed Methadone HCl [Methadone Intensol] 85 mg PO DAILY 04/18/16 03/06/17 Xanax Unknown Dose 1 tab PO ONCE PRN 03/06/17 03/06/17 Allergies Allergy/AdvReac Type Severity Reaction Status Date / Time No Known Allergies Allergy Verified 03/06/17 12:27 Review of Systems ROS Statement: Those systems with pertinent positive or pertinent negative responses have been documented in the HPI. ROS Other: All systems not noted in ROS Statement are negative. Past Medical History Past Medical History: No Reported History Additional Past Medical History / Comment(s): migraine History of Any Multi-Drug Resistant Organisms: None Reported Past Surgical History: No Surgical Hx Reported Past Psychological History: Anxiety, Depression Smoking Status: Current every day smoker Past Alcohol Use History: None Reported Past Drug Use History: None Reported General Exam - General Exam Comments Initial Comments: This is a well-developed well-nourished awake alert oriented 3 female Limitations: no limitations General appearance: alert, anxious Head exam: Present: atraumatic, normocephalic, normal inspection Eye exam: Present: normal appearance, PERRL, EOMI. Absent: scleral icterus, conjunctival injection, periorbital swelling ENT exam: Present: normal exam, mucous membranes moist Neck exam: Present: normal inspection. Absent: tenderness, meningismus, lymphadenopathy Respiratory exam: Present: normal lung sounds bilaterally. Absent: respiratory distress, wheezes, rales, rhonchi, stridor Cardiovascular Exam: Present: regular rate, normal rhythm, normal heart sounds. Absent: systolic murmur, diastolic murmur, rubs, gallop, clicks GI/Abdominal exam: Present: soft, normal bowel sounds. Absent: distended, tenderness, guarding, rebound, rigid Extremities exam: Present: normal inspection, full ROM, normal capillary refill. Absent: tenderness, pedal edema, joint swelling, calf tenderness Back exam: Present: normal inspection Neurological exam: Present: alert, oriented X3, CN II-XII intact Psychiatric exam: Present: depressed, suicidal ideation Skin exam: Present: warm, dry, intact, normal color. Absent: rash Course Vital Signs 03/06/17 12:01 Temperature 97.7 F Pulse Rate 110 H Respiratory 18 Rate Blood Pressure 124/71 O2 Sat by Pulse 100 Oximetry Medical Decision Making - Medical Decision Making The patient was evaluated by psychiatric service and will be admitted for inpatient treatment. - Lab Data Lab Results 03/06/17 Range/Units 12:55 Urine Opiates Screen Not Detected (NotDetected) Ur Oxycodone Screen Not Detected (NotDetected) Urine Methadone Screen Detected H (NotDetected) Ur Propoxyphene Screen Not Detected (NotDetected) Ur Barbiturates Screen Not Detected (NotDetected) U Tricyclic Antidepress Not Detected (NotDetected) Ur Phencyclidine Scrn Not Detected (NotDetected) Ur Amphetamines Screen Not Detected (NotDetected) U Methamphetamines Scrn Not Detected (NotDetected) U Benzodiazepines Scrn Detected H (NotDetected) Urine Cocaine Screen Not Detected (NotDetected) U Marijuana (THC) Screen Not Detected (NotDetected) Disposition Clinical Impression: Depression, Suicidal ideation, Acute anxiety Disposition: TRANSFER TO PSYCH HOSP/UNIT Condition: Stable Referrals: None,Stated [Primary Care Provider] - 1-2 days
[2017-03-06] MEDS ORDERED: ACETAMINOPHEN TAB 325 MG TAB PO PRN (15:42)
[2017-03-06] MEDS ORDERED: MAG HYDROX/AL HYDROX/SIMETH 30 ML CUP PO PRN (15:42)
[2017-03-06] MEDS ORDERED: ZIPRASIDONE 20 MG VIAL IM PRN (15:42)
[2017-03-06] MEDS ORDERED: MAGNESIUM HYDROXIDE 2,400 MG/10 ML CUP PO PRN (15:42)
[2017-03-06] MEDS ORDERED: LORazepam 2 MG/ML SYRINGE IM PRN (15:50)
[2017-03-06] MEDS: hydrOXYzine PAMOATE 25 MG CAP PO PRN (18:21)
[2017-03-07 08:57] LABS: ALT 163 U/L (9-52); AST 108 U/L (14-36); Alkaline Phosphatase 92 U/L (38-126); Anion Gap 11 mmol/L; Blood Urea Nitrogen 10 mg/dL (7-17); Calcium 9.8 mg/dL (8.4-10.2); Carbon Dioxide 27 mmol/L (22-30); Chloride 105 mmol/L (98-107); Glucose 114 mg/dL (74-99); Non-African American GFR(MDRD) >60 (>60 ml/min/1.73 sqM); Potassium 3.9 mmol/L (3.5-5.1); Sodium 143 mmol/L (137-145); Total Bilirubin 0.7 mg/dL (0.2-1.3); Total Protein 8.3 g/dL (6.3-8.2)
[2017-03-07 08:58] LABS: Basophils # (A) 0.1 k/uL (0-0.2); Basophils % (A) 1 %; CH 29.9; CHCM 33.2; Eosinophils # (A) 0.2 k/uL (0-0.7); Eosinophils % (A) 3 %; HCT 41.7 % (34.0-46.0); HDW 2.43; HGB 13.9 gm/dL (11.4-16.0); Luc # (Auto) 0.14; Luc % (Auto) 2; Lymphocytes # (A) 2.3 k/uL (1.0-4.8); Lymphocytes % (A) 33 %; MCH 30.3 pg (25.0-35.0); MCHC 33.4 g/dL (31.0-37.0); MCV 90.6 fL (80.0-100.0); Mean Platelet Volume 7.2; Monocytes # (A) 0.4 k/uL (0-1.0); Monocytes % (A) 6 %; Neutrophils # (A) 3.9 k/uL (1.3-7.7); Neutrophils % (A) 55 %; RBC 4.61 m/uL (3.80-5.40); WBC 7.1 k/uL (3.8-10.6); WBC (Perox) 6.96
[2017-03-07] MEDS: METHADONE 5 MG TAB PO SCH (09:04)
[2017-03-07] MEDS: NICOTINE 14MG/24HR PATCH TRANSDERM SCH (09:05)
[2017-03-07] MEDS: METHADONE 10 MG TAB PO SCH (09:05)
[2017-03-07 09:11] VITALS: BMI 26.6
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
[2017-03-07] MEDS: buPROPion 75 MG TAB PO SCH ×3 (12:07→20:54)
--- NOTE | 2017-03-07 13:05 | P.MDCNMH ---
History of Present Illness H&P Date: 03/07/17 This is a 31-year-old female with no primary care physician. She has a past medical history of migraine headache, anxiety, depression, tobacco use and dependence, alcohol abuse, heroin and opiate abuse and currently on methadone program through [facility] for the past 3 years. Patient states that she has had depression and increased anxiety since her cancer father on 's [place]. She states she has been suicidal but has not acted on it. She states she did take an extra half Xanax to calm herself yesterday which helped with anxiety but does not the depression and suicidal thoughts. Patient came into [facility] and subsequent readmitted to the mental health unit. She denies any medical concerns except for a lump on the back of her thoracic area which appears to be a lipoma. Review of Systems All systems: negative Constitutional: Denies chills, Denies fever Eyes: denies blurred vision, denies pain Ears, nose, mouth and throat: Denies headache, Denies sore throat Cardiovascular: Denies chest pain, Denies shortness of breath Respiratory: Denies cough Gastrointestinal: Denies abdominal pain, Denies diarrhea, Denies nausea, Denies vomiting Genitourinary: Denies dysuria, Denies hematuria Musculoskeletal: Denies myalgias Integumentary: Denies pruritus, Denies rash Neurological: Denies numbness, Denies weakness Psychiatric: Reports anxiety, Reports depression, Reports hopelessness, Reports suicidal ideation Endocrine: Denies fatigue, Denies weight change Past Medical History Past Medical History: No Reported History Additional Past Medical History / Comment(s): migraine History of Any Multi-Drug Resistant Organisms: None Reported Past Surgical History: No Surgical Hx Reported Past Anesthesia/Blood Transfusion Reactions: No Reported Reaction Smoking Status: Current every day smoker Additional Past Alcohol Use History / Comment(s): Patient is a smoker of a half a pack to 1 pack per day for 15+ years. She denies any marijuana use. She does have history of heroin and opiate abuse but has been on the methadone program through [facility] for the past 3 years. - Past Family History Father Additional Family Medical History / Comment(s): Father is alive at age 54 with no major medical problems. Mother Additional Family Medical History / Comment(s): Mother is alive at age 51 with no major medical problems. Sister(s) Additional Family Medical History / Comment(s): Patient has one sister with mental health issues. Patient has 1 brother with no major medical problems. Patient is 2 children ages 10 and 11 with no major medical problems. Medications and Allergies Home Medications Medication Instructions Recorded Confirmed Type Methadone HCl [Methadone Intensol] 85 mg PO DAILY 04/18/16 03/07/17 History Xanax Unknown Dose 1 tab PO ONCE PRN 03/06/17 03/07/17 History Allergies Allergy/AdvReac Type Severity Reaction Status Date / Time No Known Allergies Allergy Verified 03/07/17 08:54 Physical Exam Vitals: Vital Signs Temp Pulse Pulse Resp BP BP Pulse Ox 03/07/17 06:46 97.7 F 81 18 96/54 03/06/17 15:30 98.2 F 91 16 107/68 03/06/17 14:57 97 F L 78 16 109/56 96 03/06/17 12:01 97.7 F 110 H 18 124/71 100 Intake and Output 03/06/17 03/07/17 03/07/17 22:59 06:59 14:59 Other: Weight 79.37 kg Patient Weight 03/08/17 06:59 Weight 79.37 kg Gen: This is a 31-year-old female. She is cooperative and appears to be in no acute distress. HEENT: Head is atraumatic, normocephalic. Pupils equal, round. Sclerae is anicteric. NECK: Supple. No JVD. No lymphadenopathy. No thyromegaly. LUNGS: Clear to auscultation. No wheezes or rhonchi. No intercostal retractions. HEART: Regular rate and rhythm. No murmur. ABDOMEN: Soft. Bowel sounds are present. No masses. No tenderness. EXTREMITIES: No pedal edema. No calf tenderness. BACK: Patient has a lipoma over the T4 area. NEUROLOGICAL: Patient is awake, alert and oriented x3. Cranial nerves 2 through 12 are grossly intact. Cranial Nerve Examination - Cranial Nerves Cranial Nerve II- Optic: Intact Cranial Nerve III- Oculomotor: Intact Cranial Nerve IV- Trochlear: Intact Cranial Nerve V- Trigeminal: Intact Cranial Nerve - Abducens: Intact Cranial Nerve VII- Facial: Intact Cranial Nerve VIII- Auditory: Intact Cranial Nerve IX- Glossopharyngeal: Intact Cranial Nerve X- Vagus: Intact Cranial Nerve XI- Accessory: Intact Cranial Nerve XII- Hypoglossal: Intact Results CBC & Chem 7: 03/07/17 08:30 03/07/17 08:30 Labs: Abnormal Lab Results - Last 24 Hours (Table) 03/06/17 03/07/17 Range/Units 12:55 08:30 Glucose 114 H (74-99) mg/dL AST 108 H (14-36) U/L ALT 163 H (9-52) U/L Total Protein 8.3 H (6.3-8.2) g/dL Urine Methadone Screen Detected H (NotDetected) U Benzodiazepines Scrn Detected H (NotDetected) Assessment and Plan Plan: 1. Depression with suicidal ideation. Patient admitted to the mental health unit. Continue current plan per psychiatrist. 2. History of heroin and opiate abuse currently on methadone of 85 mg daily. 3. Tobacco use and dependence. Continue nicotine patch. 4. Lipoma on her back at the T4 area. Recommend patient follow-up and have this removed as an outpatient. Impression and plan of care have been directed as dictated by the signing physician. Jacey Lozano nurse practitioner acting as scribe for signing physician.
[2017-03-07] MEDS: MIRTAZAPINE 15 MG TAB PO SCH (20:54)
[2017-03-08] MEDS: METHADONE 5 MG TAB PO SCH (08:41)
[2017-03-08] MEDS: NICOTINE 14MG/24HR PATCH TRANSDERM SCH (08:41)
[2017-03-08] MEDS: buPROPion 75 MG TAB PO SCH (08:41)
[2017-03-08] MEDS: METHADONE 10 MG TAB PO SCH (08:42)
--- NOTE | 2017-03-08 12:26 | P.PN ---
Progress Note - Text INTERVERAL HISTORY: Patient discussed at treatment team meeting, review of record, met with patient. Staff reports that patient is attending groups but is silent, depressed. Patient was in her room paged and came to the desk followed me to my office. Soft-spoken, poor eye contact looking down, tearful when asked about her depression and thoughts of suicide. States that she slept but woke up doesn't know how many times, fearful that she is going to miss something that she is supposed to do here on the unit. States that she continues to feel guilt related to Zeb's , continues to feel that she should've been the person to , and although she denies plans to kill herself with heroin overdose she still wishes to be . She has not reported having a panic attack here states however though that her pattern is to have panic attacks maybe 2-3 days in a row and then days without panic attacks. Reports no side effects to Wellbutrin, however it's noted that because it has to be 3 times a day dosing she is getting a dose at 10 PM which of course is going to keep her awake. MENTAL STATUS EXAM: Patient alert and oriented 3, good eye contact, fair groomed in street clothing. Speech low volume, decreased rate and production. Some spontaneous speech but minimal. Coherent, logical and goal directed thought process. No DANDY, no FOI. No TB/TW/ TI Denied auditory and visual hallucinations. Denied paranoid ideation, delusions or IOR. Memory grossly intact Cognition average Mood dysphoric tearful, anxious, affect constricted, congruent with mood. Denies suicidal ideation, denies homicidal ideation. Insight partial; Judgment grossly intact for treatment purposes IMPRESSIONS: 31-year-old single female with a 6 month history of depression and anxiety after her of a fentanyl overdose. She has been having increased depression and anxiety increased to panic attacks. This has caused her to feel that her methadone is not working which then leads to a higher state of anxiety. She began to have suicidal ideation over the week. With plan to buy heroin and overdose. Currently is using methadone, has been clean for over 3 years. Sleep is disturbed waking approximately every hour. Dysphoric tearful and anxious, feeling hopeless, guilt, believing that she should've been the one who instead of her , wishing to join him. Today she is not as anxious as she was yesterday still very depressed, poor eye contact, denies active suicidal ideation but still wishes to be . Guilt related to spouse's Major depressive disorder, recurrent, severe, without psychosis Suicide ideation with a plan Complicated bereavement Opiate use disorder, severe, on methadone PLAN: Continue inpatient psychiatric unit admission, for safety and treatment purposes Suicide precaution every 15 minute checks Labs, hospitalist to address any physical issues. Wellbutrin 75 mg 3 times a day Wellbutrin XL 150 now, continue 150 tomorrow Saturday morning, and then would ask the mom covering M.D. to increase her Wellbutrin on Saturday to 300 mg. Will reassess if we should continue Remeron 15 mg at bedtime as she is mentioning some movement in her legs possibly restless leg with the serotonergic drug. Vistaril 50 mg 3 times a day when necessary anxiety. Need to address [facility] due to the fact that they denied her outpatient care because she is getting care [facility]
[2017-03-08] MEDS: buPROPion XL 150 MG TAB.ER.24H PO SCH (13:47)
[2017-03-08 18:10] LABS: Appearance,Urine Turbid (Clear); Bacteria,Urine Occasional /hpf; Bilirubin,Urine Negative (Negative); Glucose,Urine (UA) Negative (Negative); Ketones,Urine Negative (Negative); Leukocyte Esterase,Urine Large (Negative); Mucus,Urine Occasional /hpf; Nitrite,Urine Negative (Negative); Particle Count 19117; Protein,Urine Negative (Negative); RBC,Urine 38 /hpf (0-5); Specific Gravity,Urine 1.014 (1.001-1.035); Squamous Epithelial Cell,Urine 28 /hpf (0-4); UA Billing (MACRO vs. MICRO) MICRO; Urobilinogen,Urine <2.0 mg/dL (<2.0); WBC,Urine 41 /hpf (0-5)
[2017-03-08] MEDS: NITROFURANTOIN MONOHYD/M-CRYST 100 MG CAP PO SCH (20:09)
[2017-03-08] MEDS: MIRTAZAPINE 15 MG TAB PO SCH (20:09)
[2017-03-09] MEDS: NICOTINE 14MG/24HR PATCH TRANSDERM SCH (09:01)
[2017-03-09] MEDS: METHADONE 5 MG TAB PO SCH (09:02)
[2017-03-09] MEDS: hydrOXYzine PAMOATE 25 MG CAP PO PRN (09:02)
[2017-03-09] MEDS: METHADONE 10 MG TAB PO SCH (09:02)
[2017-03-09] MEDS: buPROPion XL 150 MG TAB.ER.24H PO SCH (09:03)
[2017-03-09] MEDS: NITROFURANTOIN MONOHYD/M-CRYST 100 MG CAP PO SCH ×2 (09:31→20:08)
--- NOTE | 2017-03-09 17:57 | P.PN ---
Progress Note - Text Date of service: 03/09/2017 Chief complaint: "I am still feeling depressed" Subjective: The patient has been seen today as follow-up, chart reviewed, case discussed with the treatment team. Patient reports has better sleep last night for about 6 hrs but she still has interruption during the night and woke up few times. She reports has better appetite today. She was able to participate in meeting and interact with others. She reports her depressions is slightly better today and denies feeling suicidal. She denies any S/H thoughts, intention or plans. She reports her anxiety is relatively less today and minimized racing thoughts. Patient presented with flat affect and was very evasive and answered most of questions with few words. The patient denies any manic symptoms including sustained period of time with elevated or irritable mood, impulsive or irrational behavior, inflated self- esteem, or absence need to sleep due to increases goal-directed activities. The patient denies any auditory or visual hallucinations. Also the patient denies any paranoid ideation. Review of other systems: Patient denies any physical symptoms besides what has been mentioned above. No breathing problems, no chest pain reported today. Objective: Vitals has been reviewed. Mental status examination; Appearance: The patient appears stated age, adequately groomed, no specific features. Gait/posture: Normal gait, Normal arm swinging: No abnormal movements. Attitude and behavior: Superficially engaged, not fully cooperative, intermittent eye contact. Motor activity: Normal psychomotor activity Speech: Soft, low tone Mood: Depressed Affect: Flat Thought form: goal-directed, linear, coherent. Thought content: Non-delusional, denies suicidal thoughts, denies homicidal thoughts, denies intentions or plans. Perception: Denies any auditory or visual hallucinations Attention: No impairment. Patient was able to repeat serial 7. Orientation: Patient patient was fully oriented to time place person and situation. Insight: Patient has limited insight about his psychiatric disorder. Judgment: Patient has limited judgment about his psychiatric treatment. Assessment: Major depressive disorder, recurrent, severe, without psychosis Complicated bereavement Opiate use disorder, severe, on methadone Plan: Continue with inpatient psychiatric hospitalization for monitoring and continue treatment. Continue group therapy and other unit activities. Continue follow up with medical team to address physical problems including none Continue psychiatric medications: Increase Wellbutrin to 300 mg as per the primary psychiatrist plan and maintain Remeron 15 mg at bedtime Patient has been educated and counseling about her methadone treatment and substance use disorder treatment and recovery. Continue follow-up and monitoring.
[2017-03-09] MEDS: MIRTAZAPINE 15 MG TAB PO SCH (20:08)
[2017-03-10] MEDS: METHADONE 10 MG TAB PO SCH (09:03)
[2017-03-10] MEDS: buPROPion XL 300 MG TAB.ER.24H PO SCH (09:03)
[2017-03-10] MEDS: NICOTINE 14MG/24HR PATCH TRANSDERM SCH (09:03)
[2017-03-10] MEDS: NITROFURANTOIN MONOHYD/M-CRYST 100 MG CAP PO SCH ×2 (09:04→21:28)
[2017-03-10] MEDS: METHADONE 5 MG TAB PO SCH (09:04)
--- NOTE | 2017-03-10 14:54 | P.PN ---
Progress Note - Text Date of service: 03/10/2017 Chief complaint: "I feel anxious " Subjective: The patient has been seen today as follow-up, chart reviewed, case discussed with the treatment team. Patient slept about 5 hours last night. Patient has been going to groups and other unit activities. Patient reports no appetite problems. The patient minimized depression symptoms and she denies feeling hopeless or suicidal. She and still has racing thoughts and she feels increasingly anxious and irritable. She reports symptoms of feeling tense, apprehensive and extremely worried. The patient denies any manic symptoms. The patient denies any auditory or visual hallucinations. Also the patient denies any paranoid ideation. The patient is compliant with her medications and denies any adverse reactions. Review of other systems: Patient denies any physical symptoms besides what has been mentioned above. No breathing problems, no chest pain reported today. Objective: Vitals has been reviewed. Mental status examination; Appearance: The patient appears stated age, adequately groomed, no specific features. Gait/posture: Normal gait, Normal arm swinging: No abnormal movements. Attitude and behavior: engaged, fully cooperative, fair eye contact. Motor activity: Normal psychomotor activity Speech: Soft, low tone Mood: Anxious Affect: Constricted Thought form: goal-directed, linear, coherent. Thought content: Non-delusional, denies suicidal thoughts, denies homicidal thoughts, denies intentions or plans. Perception: Denies any auditory or visual hallucinations Attention: No impairment. Orientation: Patient patient was fully oriented to time place person and situation. Insight: Patient has limited insight about his psychiatric disorder. Judgment: Patient has limited judgment about his psychiatric treatment. Assessment: Major depressive disorder, recurrent, severe, without psychosis Complicated bereavement Opiate use disorder, severe, on methadone Plan: Continue with inpatient psychiatric hospitalization for monitoring and continue treatment. Continue group therapy and other unit activities. Continue psychiatric medications: Increase Wellbutrin to 300 mg as per the primary psychiatrist plan and maintain Remeron 15 mg at bedtime We'll start Neurontin 200 mg by mouth 3 times a day for anxiety symptoms and to help with post acute withdrawal syndrome. Continue education and counseling about substance use disorder treatment and recovery. Continue follow-up and monitoring.
[2017-03-10] MEDS: GABAPENTIN 100 MG CAP PO SCH ×2 (16:15→21:27)
[2017-03-10] MEDS: MIRTAZAPINE 15 MG TAB PO SCH (21:28)
[2017-03-11] MEDS: METHADONE 5 MG TAB PO SCH (08:51)
[2017-03-11] MEDS: NICOTINE 14MG/24HR PATCH TRANSDERM SCH (08:51)
[2017-03-11] MEDS: METHADONE 10 MG TAB PO SCH (08:51)
[2017-03-11] MEDS: buPROPion XL 300 MG TAB.ER.24H PO SCH (08:51)
[2017-03-11] MEDS: NITROFURANTOIN MONOHYD/M-CRYST 100 MG CAP PO SCH ×2 (08:51→20:58)
[2017-03-11] MEDS: GABAPENTIN 100 MG CAP PO SCH ×3 (08:53→20:58)
[2017-03-11] MEDS ORDERED: IBUPROFEN 600 MG TAB PO PRN (10:24)
--- NOTE | 2017-03-11 16:12 | P.PN ---
Progress Note - Text INTERVERAL HISTORY: Patient discussed at treatment team meeting, review of record, met with patient. Staff reports that patient is attending groups but is silent, depressed. Review of chart shows that she had some increased anxiety and was started on gabapentin. Patient was in the relaxation group when I called her out. Patient reports that she slept a little better last night, thinks that the gabapentin has helped somewhat with the anxiety. We spoke about Zeb again she reports that when he she felt relief due to always worrying about him and his opiate use. Then she felt guilty for having that sense of relief. She continues to feel extremely depressed, crying for about 10 minutes talking about her guilt and inability to stop him from using. States that when he was in senior living she pushed for him to use an option if he could get out early and he got out for [place]. She states that 4 people the same day that he did from the same batch of fentanyl, even another person on the same block hours after him. Patient is no longer wishing that she was and with Zeb, but instead wishing that he was alive with her. Soft-spoken fair eye contact tearful, dysphoric. MENTAL STATUS EXAM: Patient alert and oriented 3, good eye contact, fair groomed in street clothing. Speech low volume, decreased rate and production. spontaneous speech Coherent, logical and goal directed thought process. No DANDY, no FOI. No TB/TW/ TI Denied auditory and visual hallucinations. Denied paranoid ideation, delusions or IOR. Memory grossly intact Cognition average Mood dysphoric tearful, crying, affect constricted, congruent with mood. Denies suicidal ideation, denies homicidal ideation. Insight partial; Judgment grossly intact for treatment purposes IMPRESSIONS: 31-year-old single female with a 6 month history of depression and anxiety after her of a fentanyl overdose. She has been having increased depression and anxiety increased to panic attacks. This has caused her to feel that her methadone is not working which then leads to a higher state of anxiety. She began to have suicidal ideation over the week. With plan to buy heroin and overdose. Currently is using methadone, has been clean for over 3 years. Sleep is disturbed waking approximately every hour. Dysphoric tearful and anxious, feeling hopeless, guilt, believing that she should've been the one who instead of her , wishing to join him. Today she is more emotional speaking about Zeb, not as anxious. Guilt significant regarding Zeb' . Still very depressed, fair eye contact, denies active suicidal ideation but still wishes to be . Major depressive disorder, recurrent, severe, without psychosis Suicide ideation with a plan Complicated bereavement Opiate use disorder, severe, on methadone PLAN: Continue inpatient psychiatric unit admission, for safety and treatment purposes Suicide precaution every 15 minute checks Labs, hospitalist to address any physical issues. Wellbutrin 300 mg. Remeron 15 mg at bedtime as she is mentioning some movement in her legs possibly restless leg with the serotonergic drug. Vistaril 50 mg 3 times a day when necessary anxiety. Methadone 85mg QD Need to address [facility] due to the fact that they denied her outpatient care because she is getting care [facility]
[2017-03-11] MEDS: MIRTAZAPINE 15 MG TAB PO SCH (20:58)
[2017-03-12 05:35] VITALS: RESP 16
[2017-03-12] MEDS: NICOTINE 14MG/24HR PATCH TRANSDERM SCH (08:52)
[2017-03-12] MEDS: METHADONE 5 MG TAB PO SCH (08:53)
[2017-03-12] MEDS: buPROPion XL 150 MG TAB.ER.24H PO SCH (08:53)
[2017-03-12] MEDS: METHADONE 10 MG TAB PO SCH (08:53)
[2017-03-12] MEDS: GABAPENTIN 100 MG CAP PO SCH ×3 (08:53→21:35)
--- NOTE | 2017-03-12 13:09 | P.PN ---
Progress Note - Text INTERVERAL HISTORY: Patient discussed at treatment team meeting, review of record, met with patient. Staff reports that patient is attending groups has been more open and expressive. A shot was in her room when I paged her. Patient reports that she did not sleep well last night lying in bed and fell asleep. Reports that she is feeling better is more hopeful about the future. States that her mother spoke with her and said that she thought she needed to reduce her workload, and that her mom would help her apply for Social Security for the children. The children would be able to receive something due to their father' s . Patient states that she thinks this would be helpful and that she also will get help on filing her taxes so she can get her return back. Patient is not worried that she did not sleep so well last night saying that this happens to her quite often but knows that if she can exercise or do some relaxation it will help. She says that she is not suicidal and as stated above she is hopeful about the future. She spoke with her son who is sounding sad that she is not home so she wants to get home if possible. We talked about what would be a reasonable timeframe and she has tolerated the increase of the Wellbutrin to 450 mg a day and the gabapentin 200 3 times a day for the anxiety. She has not had any panic attacks since she arrived here and her overall anxiety is down. She is no longer thinking about and wanting to join [employer] MENTAL STATUS EXAM: Patient alert and oriented 3, good eye contact, fair groomed in street clothing. Speech low volume, decreased rate and production. spontaneous speech Coherent, logical and goal directed thought process. No DANDY, no FOI. No TB/TW/ TI Denied auditory and visual hallucinations. Denied paranoid ideation, delusions or IOR. Memory grossly intact Cognition average Mood neutral, affect full range decreased intensity, congruent with mood. Denies suicidal ideation, denies homicidal ideation. Insight partial; Judgment grossly intact for treatment purposes IMPRESSIONS: 31-year-old single female with a 6 month history of depression and anxiety after her of a fentanyl overdose. She has been having increased depression and anxiety increased to panic attacks. This has caused her to feel that her methadone is not working which then leads to a higher state of anxiety. She began to have suicidal ideation over the week. With plan to buy heroin and overdose. Currently is using methadone, has been clean for over 3 years. Sleep is disturbed waking approximately every hour. Dysphoric tearful and anxious, feeling hopeless, guilt, believing that she should've been the one who instead of her , wishing to join him. Today patient is not tearful she is able to talk some of her Zeb and his without breaking down. She is forward thinking about the future and she is focusing on her children. Her children are protective factor. She denies suicidal ideation. She is tolerating the increase of the Wellbutrin XL Major depressive disorder, recurrent, severe, without psychosis Suicide ideation with a plan Complicated bereavement Opiate use disorder, severe, on methadone PLAN: Continue inpatient psychiatric unit admission, for safety and treatment purposes Suicide precaution every 15 minute checks Wellbutrin XL 450mg mg. Remeron 15 mg at bedtime as she is mentioning some movement in her legs possibly restless leg with the serotonergic drug. Gabapentin 200 mg 3 times a day Methadone 85mg QD [facility] may not be a possibility since she is receiving counseling for her methadone. Social work will look for referrals resources for grief and bereavement. Not sure where she will go for psychiatry she may need to go to her primary care. [facility] discharge tomorrow
--- NOTE | 2017-03-12 14:42 | P.DS ---
Providers Date of admission: 03/06/17 14:40 Expected date of discharge: 03/13/17 Attending physician: Luba May MD Consults: 03/06/17 15:42 Consult Physician Routine Consulting Provider: Татьяна Vale Consult Reason/Comments: history and physical Do you want consulting provider notified?: Yes Primary care physician: Stated None Hospital Course: BRIEF ADMISSION HI 31-year-old single female who was admitted to the mental health unit through through the emergency room. Patient's had overdosed in August she became depressed gradually increased with recent onset of anxiety and panic attacks on a frequent basis. She is currently taking methadone 85 mg daily reports that she tried to manage her anxiety through behavioral control but it failed and she began to feel suicidal as she could not control her panic. She began to feel that she would be better off if she were to join her . HOSPITAL COURSE: Patient was admitted to the unit she she agreed to attend the groups which she did but was not participating. She was severely dysphoric, crying, hopeless, as well as psychomotor retardation. She had suicide thoughts, wishes to be and to join her . She was started on Wellbutrin 75 mg 3 times a day she tolerated it without any side effects. It was increased rapidly to eventually 450 mg daily XL formulation. She was started on gabapentin 200 mg 3 times a day for the anxiety. As she began to feel somewhat better she thought less about joining her [facility] in [place] and began to think more of her children. She had a good discussion with her mother and she will reduce some of her work hours. She needs to have grief work and she was given resources/referrals for that. Because she is at [facility] for methadone she receives counseling there which is specific for opiate addiction and she needs more but apparently this can't happen due to the system. She requested discharge as she was somewhat better in terms of her thoughts about the future, she was no longer suicidal, she was not having panic attacks she still had some low level anxiety.. Her sleep was a bit disrupted in part due to the unit and having to share a room. But overall she was functioning better. MENTAL STATUS EXAM: Patient alert and oriented 3, good eye contact, fair groomed in street clothing. Speech low volume, decreased rate and production. spontaneous speech Coherent, logical and goal directed thought process. No DANDY, no FOI. No TB/TW/ TI Denied auditory and visual hallucinations. Denied paranoid ideation, delusions or IOR. Memory grossly intact Cognition average Mood neutral, affect full range decreased intensity, congruent with mood. Denies suicidal ideation, denies homicidal ideation. Insight partial; Judgment grossly intact for treatment purposes ADMISSION DIAGNOSES: Major depressive disorder, recurrent, severe, without psychosis Suicide ideation with a plan Complicated bereavement Opiate use disorder, severe, on methadone DISCHARGE DIAGNOSES: Major depressive disorder, recurrent, severe, without psychosis Complicated bereavement Opiate use disorder, severe, in remission on methadone Plan: Discharge today Social work will arrange follow-up care. Continue Wellbutrin XL 450 daily Continue gabapentin 200 mg 3 times a day Patient will continue with [facility] for opiate treatment, methadone 85mg QAM Pertinent Studies: none Procedures: none Patient Condition at Discharge: Stable Plan - Discharge Summary New Discharge Prescriptions: New buPROPion XL [Wellbutrin XL] 450 mg PO DAILY #90 tab Gabapentin [Neurontin] 200 mg PO TID #180 cap hydrOXYzine PAMOATE [Vistaril] 25 mg PO Q8HR PRN #30 cap PRN Reason: Anxiety Methadone [Dolophine] 80 mg PO DAILY #16 tab Methadone [Dolophine] 5 mg PO DAILY #2 tab Mirtazapine [Remeron] 15 mg PO HS #30 tab Discontinued Methadone HCl [Methadone Intensol] 85 mg PO DAILY Xanax Unknown Dose 1 tab PO ONCE PRN PRN Reason: Anxiety Discharge Medication List Gabapentin [Neurontin] 200 mg PO TID #180 cap 03/13/17 [Rx] Methadone [Dolophine] 5 mg PO DAILY #2 tab 03/13/17 [Rx] Methadone [Dolophine] 80 mg PO DAILY #16 tab 03/13/17 [Rx] Mirtazapine [Remeron] 15 mg PO HS #30 tab 03/13/17 [Rx] buPROPion XL [Wellbutrin XL] 450 mg PO DAILY #90 tab 03/13/17 [Rx] hydrOXYzine PAMOATE [Vistaril] 25 mg PO Q8HR PRN #30 cap 03/13/17 [Rx] Follow up Appointment(s)/Referral(s): None,Stated [Primary Care Provider] - 1-2 days Patient Instructions/Handouts: How to Stop Smoking (GEN), Suicide Prevention for Adults (GEN) Activity/Diet/Wound Care/Special Instructions: Per the request of Cady FALLON, please bring your discharge instructions along with last dose of methadone still sealed in bottle to [facility] outpatient methadone services. No alcohol or street drugs, activity as tolerated, and diet as tolerated. Remove all firearms from the home. Follow up with outpatient provider as set up at time of discharge, follow up with your primary care doctor in 1-2 days. Call the crisis line or [phone] if having thoughts of hurting yourself or others
[2017-03-12] MEDS: MIRTAZAPINE 15 MG TAB PO SCH (21:35)
[2017-03-13 06:33] VITALS: BP 103/54; PULSE 75; TEMP 97.9
[2017-03-13] MEDS: NICOTINE 14MG/24HR PATCH TRANSDERM SCH (08:54)
[2017-03-13] MEDS: GABAPENTIN 100 MG CAP PO SCH (08:55)
[2017-03-13] MEDS: METHADONE 10 MG TAB PO SCH (08:55)
[2017-03-13] MEDS: buPROPion XL 150 MG TAB.ER.24H PO SCH (08:55)
[2017-03-13] MEDS: METHADONE 5 MG TAB PO SCH (08:55)
== END 2017-03-13 12:45 | disposition home or self-care (01) | DRG 885 ==
LOC: EC 11:54 → 3MHU 14:40
PROVIDERS: ADMIT Psychiatry & Neurology Addiction Medicine; ATTEND Psychiatry & Neurology Addiction Medicine
DX: F33.2 Major depressive disorder, recurrent severe without psychotic features (principal); F11.20 Opioid dependence, uncomplicated; R45.851 Suicidal ideations; F41.0 Panic disorder [episodic paroxysmal anxiety]; F43.21 Adjustment disorder with depressed mood; G43.909 Migraine, unspecified, not intractable, without status migrainosus; F41.9 Anxiety disorder, unspecified; Z79.899 Other long term (current) drug therapy
CPT/HCPCS: 80053; 80306; 81001; 81025; 82075; 84443; 85025; 93005; 99285

== ENCOUNTER 2017-04-11 09:28 | Emergency (ER) | payer OTHER ==
[2017-04-11 09:36] VITALS: TEMP 97.9
[2017-04-11] MEDS ORDERED: LORazepam 1 MG TAB PO STA (10:41)
--- NOTE | 2017-04-11 10:42 | ED ---
Anxiety HPI - General Chief Complaint: Anxiety Stated Complaint: anxiety Time Seen by Provider: 04/11/17 10:33 Source: patient Mode of arrival: ambulatory - Related Data Home Medications: Previous Rx's Medication Instructions Recorded Gabapentin [Neurontin] 200 mg PO TID #180 cap 03/13/17 Methadone [Dolophine] 5 mg PO DAILY #2 tab 03/13/17 Methadone [Dolophine] 80 mg PO DAILY #16 tab 03/13/17 Mirtazapine [Remeron] 15 mg PO HS #30 tab 03/13/17 buPROPion XL [Wellbutrin XL] 450 mg PO DAILY #90 tab 03/13/17 hydrOXYzine PAMOATE [Vistaril] 25 mg PO Q8HR PRN #30 cap 03/13/17 LORazepam [Ativan] 1 mg PO BID #6 tab 04/11/17 Allergies/Adverse Reactions: Allergies Allergy/AdvReac Type Severity Reaction Status Date / Time No Known Allergies Allergy Verified 04/11/17 09:52 Review of Systems ROS Statement: Those systems with pertinent positive or pertinent negative responses have been documented in the HPI. ROS Other: All systems not noted in ROS Statement are negative. Past Medical History Past Medical History: No Reported History Additional Past Medical History / Comment(s): migraine History of Any Multi-Drug Resistant Organisms: None Reported Past Surgical History: No Surgical Hx Reported Past Anesthesia/Blood Transfusion Reactions: No Reported Reaction Past Psychological History: Anxiety, Depression Smoking Status: Current every day smoker Past Alcohol Use History: None Reported Past Drug Use History: None Reported - Past Family History Father Additional Family Medical History / Comment(s): Father is alive at age 54 with no major medical problems. Mother Additional Family Medical History / Comment(s): Mother is alive at age 51 with no major medical problems. Sister(s) Additional Family Medical History / Comment(s): Patient has one sister with mental health issues. Patient has 1 brother with no major medical problems. Patient is 2 children ages 10 and 11 with no major medical problems. General Exam Limitations: no limitations Course Vital Signs 04/11/17 09:31 Temperature 97.9 F Pulse Rate 84 Respiratory 18 Rate Blood Pressure 121/59 O2 Sat by Pulse 98 Oximetry Disposition Clinical Impression: Panic attack Disposition: HOME SELF-CARE Condition: Good Instructions: Generalized Anxiety Disorder (ED) Additional Instructions: Patient is follow-up with primary care provider. Take the medications as directed. Follow-up with her counseling services. Return to emergency department if any alarming signs or symptoms occur. Prescriptions: LORazepam [Ativan] 1 mg PO BID #6 tab Referrals: None,Stated [Primary Care Provider] - 1-2 days Time of Disposition: 10:41
[2017-04-11 11:03] VITALS: BP 113/66; PULSE 78; RESP 16
== END 2017-04-11 11:03 | disposition home or self-care (01) ==
LOC: EC 09:28
DX: F41.0 Panic disorder [episodic paroxysmal anxiety] (principal); F17.200 Nicotine dependence, unspecified, uncomplicated
CPT/HCPCS: 99282

== ENCOUNTER 2017-10-10 11:54 | Emergency (ER) | payer OTHER ==
[2017-10-10 12:13] VITALS: RESP 18
--- NOTE | 2017-10-10 12:51 | ED ---
General Adult HPI - General Chief complaint: Abdominal Pain Stated complaint: Vaginal bleeding/ Anxiety Time Seen by Provider: 10/10/17 12:31 Source: patient, RN notes reviewed Mode of arrival: ambulatory Limitations: no limitations - History of Present Illness Initial comments: 32 yo female presents to the ER with cc of burning with urination and pain with urination followed by some bleeding with pain. He states when he when she pees when she wiped she does not there is some blood on the tissue. She denies any vaginal bleeding or discharge. She states she is not currently sexually active. Patient states some nausea without vomiting. She states that she just feels off. Her anxiety is also increased as well. They were concerned due to the patient's continued pain so she thought that she should be seen. Patient denies any recent fever, chills, shortness of breath, chest pain, back pain, abdominal pain, nausea vomiting, numbness or tingling, constipation or diarrhea , headaches or visual changes, or any other current symptoms. - Related Data Home Medications Medication Instructions Recorded Confirmed Methadone HCl [Methadone Intensol] 85 mg PO DAILY 10/10/17 10/10/17 Previous Rx's Medication Instructions Recorded Nitrofurantoin Macrocrystal 100 mg PO BID #14 cap 10/10/17 [Macrodantin] Phenazopyridine [Pyridium] 100 mg PO TID #9 tablet 10/10/17 Allergies Allergy/AdvReac Type Severity Reaction Status Date / Time No Known Allergies Allergy Verified 10/10/17 12:41 Review of Systems ROS Statement: Those systems with pertinent positive or pertinent negative responses have been documented in the HPI. ROS Other: All systems not noted in ROS Statement are negative. Past Medical History Past Medical History: No Reported History Additional Past Medical History / Comment(s): migraine History of Any Multi-Drug Resistant Organisms: None Reported Past Surgical History: No Surgical Hx Reported Past Anesthesia/Blood Transfusion Reactions: No Reported Reaction Past Psychological History: Anxiety, Depression Smoking Status: Current every day smoker Past Alcohol Use History: None Reported Past Drug Use History: Heroin - Past Family History Father Additional Family Medical History / Comment(s): Father is alive at age 54 with no major medical problems. Mother Additional Family Medical History / Comment(s): Mother is alive at age 51 with no major medical problems. Sister(s) Additional Family Medical History / Comment(s): Patient has one sister with mental health issues. Patient has 1 brother with no major medical problems. Patient is 2 children ages 10 and 11 with no major medical problems. General Exam Limitations: no limitations General appearance: alert, in no apparent distress ENT exam: Present: normal exam, mucous membranes moist Neck exam: Present: normal inspection. Absent: tenderness, meningismus, lymphadenopathy Respiratory exam: Present: normal lung sounds bilaterally. Absent: respiratory distress, wheezes, rales, rhonchi, stridor Cardiovascular Exam: Present: regular rate, normal rhythm, normal heart sounds. Absent: systolic murmur, diastolic murmur, rubs, gallop, clicks GI/Abdominal exam: Present: soft, normal bowel sounds. Absent: distended, tenderness, guarding, rebound, rigid Neurological exam: Present: alert, oriented X3 Psychiatric exam: Present: normal affect, normal mood Skin exam: Present: warm, dry, intact, normal color. Absent: rash Course Vital Signs 10/10/17 12:09 Temperature 97.4 F L Pulse Rate 104 H Respiratory 18 Rate Blood Pressure 196/88 O2 Sat by Pulse 99 Oximetry Medical Decision Making - Medical Decision Making 32-year-old female presents to the emergency department with a chief complaint of dysuria and hematuria. At this time patient lab work is reviewed that does appear patient has UTI. We will start her on antibiotics as well as Pyridium. We did discuss follow-up we discussed return parameters all questions. Patient stated that she understood and she is agreement this plan. All questions have been answered. She will be discharged home. - Lab Data Lab Results 10/10/17 Range/Units 12:43 Urine Color Yellow Urine Appearance Cloudy H (Clear) Urine pH 7.0 (5.0-8.0) Ur Specific [place] 1.012 (1.001-1.035) Urine Protein 1+ H (Negative) Urine Glucose (UA) Negative (Negative) Urine Ketones Negative (Negative) Urine Blood Large H (Negative) Urine Nitrite Negative (Negative) Urine Bilirubin Negative (Negative) Urine Urobilinogen <2.0 (<2.0) mg/dL Ur Leukocyte Esterase Large H (Negative) Urine RBC 13 H (0-5) /hpf Urine WBC 102 H (0-5) /hpf Ur Squamous Epith Cells 39 H (0-4) /hpf Urine Mucus Rare H (None) /hpf Disposition Clinical Impression: UTI (urinary tract infection) Disposition: HOME SELF-CARE Condition: Stable Instructions: Urinary Tract Infection in Women (ED) Additional Instructions: Please use medication as discussed. Please follow up with family doctor if symptoms have not improved over the next two days. Please return to the emergency room if your symptoms increase or worsen or for any other concerns. Prescriptions: Nitrofurantoin Macrocrystal [Macrodantin] 100 mg PO BID #14 cap Phenazopyridine [Pyridium] 100 mg PO TID #9 tablet Referrals: Ayesha Lau MD [STAFF PHYSICIAN] - 1-2 days Time of Disposition: 13:03
[2017-10-10 13:01] LABS: Appearance,Urine Cloudy (Clear); Bilirubin,Urine Negative (Negative); Blood,Urine Large (Negative); Color,Urine Yellow; Glucose,Urine (UA) Negative (Negative); Ketones,Urine Negative (Negative); Leukocyte Esterase,Urine Large (Negative); Mucus,Urine Rare /hpf; Protein,Urine 1+ (Negative); RBC,Urine 13 /hpf (0-5); Specific Gravity,Urine 1.012 (1.001-1.035); Squamous Epithelial Cell,Urine 39 /hpf (0-4); Urobilinogen,Urine <2.0 mg/dL (<2.0); WBC,Urine 102 /hpf (0-5)
[2017-10-10 13:20] VITALS: BP 113/61; PULSE 88; TEMP 98
== END 2017-10-10 13:15 | disposition home or self-care (01) ==
LOC: EC 11:54
DX: N39.0 Urinary tract infection, site not specified (principal); F41.9 Anxiety disorder, unspecified; R11.0 Nausea; F11.20 Opioid dependence, uncomplicated; F17.200 Nicotine dependence, unspecified, uncomplicated; Z79.899 Other long term (current) drug therapy
CPT/HCPCS: 81001; 87077; 87086; 87186; 99284

== ENCOUNTER 2018-01-27 20:24 | Emergency (ER) | payer OTHER ==
[2018-01-27 20:28] VITALS: RESP 18
[2018-01-27] MEDS ORDERED: METOCLOPRAMIDE 5 MG/ML 2 ML VIAL IVP STA (20:42)
[2018-01-27] MEDS ORDERED: diphenhydrAMINE 50 MG/ML 1 ML VIAL IVP STA (20:42)
[2018-01-27] MEDS ORDERED: KETOROLAC 30 MG/ML 1 ML VIAL IVP STA (20:42)
[2018-01-27] MEDS ORDERED: SODIUM CHLORIDE 0.9% 500 ML IV ONE (20:42)
--- NOTE | 2018-01-27 21:14 | ED ---
Headache HPI - General Chief Complaint: Headache Stated Complaint: Headache Time Seen by Provider: 01/27/18 20:38 Source: patient, RN notes reviewed Mode of arrival: ambulatory Limitations: no limitations - History of Present Illness Initial Comments: 32-year-old female presents emergency Department with complaints of a headache. Patient states the headache started today. She has a history of migraine headaches. Patient states that she has a frontal to right-sided migraine. She states this is normal for her typical headaches. Patient has a fever, chills, neck pain neck stiffness. Patient denies any relief with [id number] medications. Patient does admit to nausea vomiting. Denies any focal weakness. - Related Data Home Medications Medication Instructions Recorded Confirmed Methadone HCl [Methadone Intensol] 85 mg PO DAILY 10/10/17 01/27/18 Allergies Allergy/AdvReac Type Severity Reaction Status Date / Time No Known Allergies Allergy Verified 01/27/18 21:00 Review of Systems ROS Statement: Those systems with pertinent positive or pertinent negative responses have been documented in the HPI. ROS Other: All systems not noted in ROS Statement are negative. Past Medical History Past Medical History: No Reported History Additional Past Medical History / Comment(s): migraine History of Any Multi-Drug Resistant Organisms: None Reported Past Surgical History: No Surgical Hx Reported Past Anesthesia/Blood Transfusion Reactions: No Reported Reaction Past Psychological History: Anxiety, Depression Smoking Status: Current every day smoker Past Alcohol Use History: None Reported Past Drug Use History: None Reported - Past Family History Father Additional Family Medical History / Comment(s): Father is alive at age 54 with no major medical problems. Mother Additional Family Medical History / Comment(s): Mother is alive at age 51 with no major medical problems. Sister(s) Additional Family Medical History / Comment(s): Patient has one sister with mental health issues. Patient has 1 brother with no major medical problems. Patient is 2 children ages 10 and 11 with no major medical problems. General Exam Limitations: no limitations General appearance: alert, in no apparent distress Head exam: Present: atraumatic, normocephalic, normal inspection Eye exam: Present: normal appearance, PERRL, EOMI. Absent: scleral icterus, conjunctival injection, periorbital swelling ENT exam: Present: normal exam, mucous membranes moist Neck exam: Present: normal inspection, full ROM. Absent: tenderness, meningismus, lymphadenopathy Respiratory exam: Present: normal lung sounds bilaterally. Absent: respiratory distress, wheezes, rales, rhonchi, stridor Cardiovascular Exam: Present: regular rate, normal rhythm, normal heart sounds. Absent: systolic murmur, diastolic murmur, rubs, gallop, clicks Neurological exam: Present: alert, oriented X3, CN II-XII intact, reflexes normal, other (Finger to nose intact bilaterally). Absent: motor sensory deficit Skin exam: Present: warm, dry, intact, normal color. Absent: rash Course Vital Signs 01/27/18 20:25 Temperature 98.1 F Pulse Rate 86 Respiratory 18 Rate Blood Pressure 123/75 O2 Sat by Pulse 98 Oximetry - Reevaluation(s) Reevaluation #1: 01/27/18 21:36 Patient updated in reevaluated sign. Patient is resting comfortably in the bed. Patient states her headache has resolved. Medical Decision Making - Medical Decision Making 32-year-old female presents from for headache. Patient has known migraine headaches. Patient states that she no relief with [id number] patient was given IV event. States her headache has completely resolved. Disposition Clinical Impression: Migraine Disposition: HOME SELF-CARE Condition: Stable Instructions: Acute Headache (ED) Additional Instructions: Please return to the Emergency Department if symptoms worsen or any other concerns. Is patient prescribed a controlled substance at d/c from ED?: No Referrals: None,Stated [Primary Care Provider] - 1-2 days Time of Disposition: 21:37
[2018-01-27 21:46] VITALS: BP 128/93; PULSE 98; TEMP 7.8
== END 2018-01-27 21:46 | disposition home or self-care (01) ==
LOC: EC 20:24
DX: G43.909 Migraine, unspecified, not intractable, without status migrainosus (principal); F17.200 Nicotine dependence, unspecified, uncomplicated; Z79.891 Long term (current) use of opiate analgesic
CPT/HCPCS: 99283; 96374; 96375 ×2; J1200; J2765; J1885

== ENCOUNTER 2019-02-10 19:43 | Emergency (ER) | payer OTHER ==
[2019-02-10 19:52] VITALS: BP 131/80; PULSE 89; RESP 18; TEMP 98.8
--- NOTE | 2019-02-10 20:06 | ED ---
Extremity Problem HPI - General Chief complaint: Extremity Problem,Nontraumatic Stated complaint: Right arm pain Time Seen by Provider: 02/10/19 19:53 Source: patient Mode of arrival: ambulatory Limitations: no limitations - History of Present Illness Initial comments: 33-year-old female with history of right ganglion cyst present today for chief complaint of right wrist pain. Patient states she has had right wrist pain for the past 2 days. Patient denies any redness warmth the risks she denies any rashes or lesions. Patient denies any breaks the skin. Patient denies any falls or trauma to the wrist. She states she presented to the [facility] earlier today for evaluation where an x-ray was obtained revealing no acute osseous injury. Records were obtained. Patient states this applied a splint which make the pain worse. Patient states she presents emergency room for second opinion. Patient states they would not provide pain medications. Patient is an 85 micrograms of methadone daily. Remaining ROS (-), she denies neck pain numbness tingling or loss sensation of the right UE, dairrhea, fevers, general malaise. Patient afebrile appearing well on arrival. - Related Data Home Medications Medication Instructions Recorded Confirmed Methadone HCl [Methadone Intensol] 85 mg PO DAILY 10/10/17 01/27/18 Allergies Allergy/AdvReac Type Severity Reaction Status Date / Time No Known Allergies Allergy Verified 01/27/18 21:00 Review of Systems ROS Statement: Those systems with pertinent positive or pertinent negative responses have been documented in the HPI. ROS Other: All systems not noted in ROS Statement are negative. Past Medical History Past Medical History: No Reported History Additional Past Medical History / Comment(s): migraine History of Any Multi-Drug Resistant Organisms: None Reported Past Surgical History: No Surgical Hx Reported Past Anesthesia/Blood Transfusion Reactions: No Reported Reaction Past Psychological History: Anxiety, Depression Smoking Status: Current every day smoker Past Alcohol Use History: None Reported Past Drug Use History: None Reported - Past Family History Father Additional Family Medical History / Comment(s): Father is alive at age 54 with no major medical problems. Mother Additional Family Medical History / Comment(s): Mother is alive at age 51 with no major medical problems. Sister(s) Additional Family Medical History / Comment(s): Patient has one sister with mental health issues. Patient has 1 brother with no major medical problems. Patient is 2 children ages 10 and 11 with no major medical problems. General Exam - General Exam Comments Initial Comments: General: The patient is awake and alert, in no distress, and does not appear acutely ill. Eye: +3 mm pupils are equal, round and reactive to light, extra-ocular movements are intact. No nystagmus. There is normal conjunctiva bilaterally. No signs of icterus. Ears, nose, mouth and throat: There are moist mucous membranes and no oral lesions. Neck: The neck is supple, there is no tenderness or JVD. Cardiovascular: There is a regular rate and rhythm. No murmur, rub or gallop is appreciated. Respiratory: Lungs are clear to auscultation, respirations are non-labored, breath sounds are equal. No wheezes, stridor, rales, or rhonchi. Musculoskeletal: Upon inspection of the wrist bilaterally there is no soft tissue swelling erythema breaks in skin abrasions or lacerations. Patient is tender to palpation just proximal to the carpal bones. Normal ROM, no tenderness. Strength 5/5. Sensation intact both proximal and distal to injury site. compartments are soft and compression. Radial pulses equal bilaterally 2+. Neurological: A&O x 3. CN II-XII intact, There are no obvious motor or sensory deficits. Coordination appears grossly intact. Speech is normal. Skin: Skin is warm and dry and no rashes or lesions are noted. Psychiatric: Cooperative, appropriate mood & affect, normal judgment. Limitations: no limitations Course Vital Signs 02/10/19 19:48 Temperature 98.8 F Pulse Rate 89 Respiratory 18 Rate Blood Pressure 131/80 O2 Sat by Pulse 97 Oximetry Medical Decision Making - Medical Decision Making 33-year-old female presenting for chief complaint of right wrist pain. Patient states she did not have trauma to the area. Patient denies fever or constitutional symptoms there is no evidence of infection on examination no warmth or redness no breaks the skin rashes or lesions. Patient states the pain is in a similar area twitches a ganglion cyst in the past. Different diagnoses include developed ganglion cyst. Imaging studies obtained at outside facility were negative for acute osseous process. Given the history, do not feel there is need to repeat at this time. Patient will be discharged with outpatient orthopedic and primary care follow-up. Return parameters were discussed at length the patient verbalized understanding. Patient was discharged appearing well I discussed the case with him prior Dr. Amezquita prior to patient's discharge she is agreeable to impression and plan Disposition Clinical Impression: Right wrist pain Disposition: HOME SELF-CARE Condition: Good Additional Instructions: Please use medication as discussed. Please follow-up with family doctor in the next 2 days, orthopedic surgery if symptoms persist. Please return to emergency room if the symptoms increase or worsen or for any other concerns. Is patient prescribed a controlled substance at d/c from ED?: No Referrals: None,Stated [Primary Care Provider] - 1-2 days Kalyan Beth MD [STAFF PHYSICIAN] - 1-2 days Time of Disposition: 20:40
== END 2019-02-10 21:00 | disposition home or self-care (01) ==
LOC: EC 19:43
DX: M25.531 Pain in right wrist (principal); F17.200 Nicotine dependence, unspecified, uncomplicated; Z79.891 Long term (current) use of opiate analgesic
CPT/HCPCS: 99283

== ENCOUNTER 2019-02-13 23:02 | Emergency (ER) | payer OTHER ==
[2019-02-13 23:07] VITALS: BP 150/88; PULSE 92; RESP 16; TEMP 98.3
[2019-02-14 00:01] LABS: Basophils # (A) 0.1 k/uL (0-0.2); Basophils % (A) 1 %; Eosinophils # (A) 0.2 k/uL (0-0.7); Eosinophils % (A) 2 %; HCT 37.8 % (34.0-46.0); HGB 12.8 gm/dL (11.4-16.0); Lymphocytes % (A) 20 %; MCH 29.5 pg (25.0-35.0); MCHC 33.9 g/dL (31.0-37.0); Mean Platelet Volume 7.7; Monocytes # (A) 0.7 k/uL (0-1.0); Monocytes % (A) 7 %; Neutrophils % (A) 69 %; Platelet Count 276 k/uL (150-450); RBC 4.34 m/uL (3.80-5.40); RDW 13.7 % (11.5-15.5); WBC 10.1 k/uL (3.8-10.6)
[2019-02-14 00:15] LABS: African American GFR (CKD) >90 (>60 ml/min/1.73 sqM); Anion Gap 10 mmol/L; Calcium 9.5 mg/dL (8.4-10.2); Carbon Dioxide 23 mmol/L (22-30); Chloride 107 mmol/L (98-107); Creatine Kinase 58 U/L (30-135); Glucose 101 mg/dL (74-99); Sodium 140 mmol/L (137-145)
[2019-02-14 00:20] LABS: Blood Urea Nitrogen 16 mg/dL (7-17); Potassium 4.9 mmol/L (3.5-5.1)
[2019-02-14] MEDS ORDERED: AMPICILLIN-SULBACTAM 1.5 GM in SODIUM CHLORIDE 0.9% 50 ML IVPB STA (00:21)
[2019-02-14] MEDS ORDERED: VANCOMYCIN IV PER PHARMACY 1 EACH MISC MISCELLANE PRN (00:21)
[2019-02-14] MEDS ORDERED: VANCOMYCIN 1,500 MG in SODIUM CHLORIDE 0.9% 250 ML IVPB STA (00:23)
[2019-02-14] MEDS ORDERED: HYDROmorphone 0.5 MG/0.5 ML SYRINGE IVP STA ×2 (00:51→01:49)
--- NOTE | 2019-02-14 01:10 | ED ---
Skin/Abscess/FB HPI - General Chief complaint: Skin/Abscess/Foreign Body Stated complaint: Wrist Injury Time Seen by Provider: 02/13/19 23:10 Source: patient Mode of arrival: ambulatory - History of Present Illness Initial comments: 33-year-old female presenting for right hand pain. Patient states she has had it for a week and a half. Patient states that the day after she was discharged last week she developed redness and swelling. She states she cannot flex her fingers or extend them secondary to the pain. Patient denies a fever chills night sweats. Patient denies any IV drug use within the last few months. Patient denies any abrasions or specific lacerations. Patient denies any history of clotting disorders. Patient is unsure what caused the swelling. Remaining review of system negative. Upon arrival patient appears well signs of acute distress. - Related Data Home Medications Medication Instructions Recorded Confirmed Methadone HCl [Methadone Intensol] 85 mg PO DAILY 10/10/17 01/27/18 Allergies Allergy/AdvReac Type Severity Reaction Status Date / Time No Known Allergies Allergy Verified 01/27/18 21:00 Review of Systems ROS Statement: Those systems with pertinent positive or pertinent negative responses have been documented in the HPI. ROS Other: All systems not noted in ROS Statement are negative. Past Medical History Past Medical History: No Reported History Additional Past Medical History / Comment(s): migraine History of Any Multi-Drug Resistant Organisms: None Reported Past Surgical History: No Surgical Hx Reported Past Anesthesia/Blood Transfusion Reactions: No Reported Reaction Past Psychological History: Anxiety, Depression Smoking Status: Current every day smoker Past Alcohol Use History: None Reported Past Drug Use History: None Reported - Past Family History Father Additional Family Medical History / Comment(s): Father is alive at age 54 with no major medical problems. Mother Additional Family Medical History / Comment(s): Mother is alive at age 51 with no major medical problems. Sister(s) Additional Family Medical History / Comment(s): Patient has one sister with mental health issues. Patient has 1 brother with no major medical problems. Patient is 2 children ages 10 and 11 with no major medical problems. General Exam - General Exam Comments Initial Comments: General: The patient is awake and alert, appears in pain Eye: Pupils are equal, round and reactive to light, extra-ocular movements are intact. No nystagmus. There is normal conjunctiva bilaterally. No signs of icterus. Ears, nose, mouth and throat: There are moist mucous membranes and no oral lesions. Neck: The neck is supple, there is no tenderness or JVD. Cardiovascular: There is a regular rate and rhythm. No murmur, rub or gallop is appreciated. Respiratory: Lungs are clear to auscultation, respirations are non-labored, breath sounds are equal. No wheezes, stridor, rales, or rhonchi. Musculoskeletal: Patient for swelling of digits 2 through 5 of the right hand flexed position with extreme pain with extension. Wrist is also an extension secondary to pain. Sensation intact both proximal and distal to injury site. Radial pulses equal bilaterally 2+. Neurological: A&O x 3. CN II-XII intact, There are no obvious motor or sensory deficits. Coordination appears grossly intact. Speech is normal. Skin: Skin is warm and dry and no rashes or lesions are noted. Psychiatric: Cooperative, appropriate mood & affect, normal judgment. Course Vital Signs 02/13/19 23:03 Temperature 98.3 F Pulse Rate 92 Respiratory 16 Rate Blood Pressure 150/88 O2 Sat by Pulse 97 Oximetry Medical Decision Making - Medical Decision Making 33-year-old female presenting with hand pain. Physical examination concerning for flexor tenosynovitis. Patient was started on vancomycin and Unasyn. CRP 70. WBC WNL. Afebrile. Patient does not appears septic. Patient was evaluated by attending provider Dr. Katz who is agreeable with transfer to [facility] for hand consultation/intervention. Patient agreeable with transfer. P atient transferred via EMS. Accepted physician is awaiting arrival and will contact hand. - Lab Data Result diagrams: 02/13/19 23:50 02/13/19 23:50 Lab Results 02/13/19 02/13/19 02/13/19 Range/Units 23:50 23:50 23:50 WBC 10.1 (3.8-10.6) k/uL RBC 4.34 (3.80-5.40) m/uL Hgb 12.8 (11.4-16.0) gm/dL Hct 37.8 (34.0-46.0) % MCV 87.0 (80.0-100.0) fL MCH 29.5 (25.0-35.0) pg MCHC 33.9 (31.0-37.0) g/dL RDW 13.7 (11.5-15.5) % Plt Count 276 (150-450) k/uL Neutrophils % 69 % Lymphocytes % 20 % Monocytes % 7 % Eosinophils % 2 % Basophils % 1 % Neutrophils # 7.0 (1.3-7.7) k/uL Lymphocytes # 2.0 (1.0-4.8) k/uL Monocytes # 0.7 (0-1.0) k/uL Eosinophils # 0.2 (0-0.7) k/uL Basophils # 0.1 (0-0.2) k/uL Manual Slide Review Performed D-Dimer 0.45 (<0.60) mg/L FEU Sodium 140 (137-145) mmol/L Potassium 4.9 (3.5-5.1) mmol/L Chloride 107 (98-107) mmol/L Carbon Dioxide 23 (22-30) mmol/L Anion Gap 10 mmol/L BUN 16 (7-17) mg/dL Creatinine 0.69 (0.52-1.04) mg/dL Est GFR (CKD-EPI)AfAm >90 (>60 ml/min/1.73 sqM) Est GFR (CKD-EPI)NonAf >90 (>60 ml/min/1.73 sqM) Glucose 101 H (74-99) mg/dL Plasma Lactic Acid Amadou (0.7-2.0) mmol/L Calcium 9.5 (8.4-10.2) mg/dL Creatine Kinase 58 (30-135) U/L C-Reactive Protein (<10.0) mg/L 02/13/19 02/13/19 Range/Units 23:50 23:50 WBC (3.8-10.6) k/uL RBC (3.80-5.40) m/uL Hgb (11.4-16.0) gm/dL Hct (34.0-46.0) % MCV (80.0-100.0) fL MCH (25.0-35.0) pg MCHC (31.0-37.0) g/dL RDW (11.5-15.5) % Plt Count (150-450) k/uL Neutrophils % % Lymphocytes % % Monocytes % % Eosinophils % % Basophils % % Neutrophils # (1.3-7.7) k/uL Lymphocytes # (1.0-4.8) k/uL Monocytes # (0-1.0) k/uL Eosinophils # (0-0.7) k/uL Basophils # (0-0.2) k/uL Manual Slide Review D-Dimer (<0.60) mg/L FEU Sodium (137-145) mmol/L Potassium (3.5-5.1) mmol/L Chloride (98-107) mmol/L Carbon Dioxide (22-30) mmol/L Anion Gap mmol/L BUN (7-17) mg/dL Creatinine (0.52-1.04) mg/dL Est GFR (CKD-EPI)AfAm (>60 ml/min/1.73 sqM) Est GFR (CKD-EPI)NonAf (>60 ml/min/1.73 sqM) Glucose (74-99) mg/dL Plasma Lactic Acid Amadou 0.8 (0.7-2.0) mmol/L Calcium (8.4-10.2) mg/dL Creatine Kinase (30-135) U/L C-Reactive Protein 70.6 H (<10.0) mg/L Disposition Clinical Impression: Flexor tenosynovitis of finger, Right hand pain Disposition: OTHER INSTITUTION NOT DEFINED Condition: Serious Is patient prescribed a controlled substance at d/c from ED?: No Referrals: None,Stated [Primary Care Provider] - 1-2 days Time of Disposition: 01:14 - Out of Hospital Transfer - Req. Specs Out of Hospital Transfer - Requested Specifics: Other Emergency Center (Dr. Delcid-accepting at [facility])
== END 2019-02-14 02:00 | disposition other institution (70) ==
LOC: EC 23:02
DX: M65.841 Other synovitis and tenosynovitis, right hand (principal); F17.200 Nicotine dependence, unspecified, uncomplicated; Z79.891 Long term (current) use of opiate analgesic
CPT/HCPCS: 36415; 85379; 80048; 82550; 83605; 85025; 86140; 87040; 99284; 96365; 96375 ×2; 96376; J3370; J0295; J1170; 87077; 87186

== ENCOUNTER → 2019-04-21 | Outpatient (CLI) | payer OTHER ==
[2019-04-21 18:21] LABS: African American GFR (CKD) 110.7 (60.0-200.0); Anion Gap 5.8 mmol/L (4.00-12.00); BUN/Creat Ratio 18.75 Ratio (12.00-20.00); Calcium 9.4 mg/dL (8.7-10.3); Carbon Dioxide 26.2 mmol/L (21.6-31.8); Potassium 4.7 mmol/L (3.5-5.5)
== END | disposition home or self-care (01) ==
LOC: LABWHC1 11:45
PROVIDERS: ATTEND Internal Medicine Infectious Disease
DX: M00.9 Pyogenic arthritis, unspecified (principal); R74.8 Abnormal levels of other serum enzymes
CPT/HCPCS: 36415; 80048; 84450; 84460; 85652; 86140; 87040

== ENCOUNTER 2020-02-05 05:03 | Emergency (ER) | payer OTHER ==
[2020-02-05] MEDS ORDERED: ONDANSETRON 4 MG/2 ML VIAL IVP STA (05:23)
[2020-02-05] MEDS ORDERED: PANTOPRAZOLE 40 MG/10 ML VIAL IVP STA (05:23)
[2020-02-05] MEDS ORDERED: SODIUM CHLORIDE 0.9% 1,000 ML IV STA (05:23)
--- NOTE | 2020-02-05 05:25 | ED ---
Weakness HPI - General Chief complaint: Nausea/Vomiting/Diarrhea Stated complaint: Vomiting Time Seen by Provider: 02/05/20 05:15 Source: patient, RN notes reviewed, old records reviewed Mode of arrival: ambulatory Limitations: no limitations - History of Present Illness Initial comments: This is a 34-year-old female DF for evaluation patient Dese for evaluation regards to not feeling well sweating weak vaginal bleeding 2 weeks started with nausea vomiting last night into today. Patient feels very anxious she hasn't had any specific pain with mild suprapubic cramping. No fevers no issues of bowel movements. No recent travel history or sick contacts no prior similar symptoms of nausea and vomiting no sick contacts from family members she did have episode of vaginal bleeding earlier in the year MD Complaint: generalized weakness -: week(s) Location: generalized Severity scale (1-10): 7 Consistency: constant Improves with: none Worsens with: none Context: recent illness, history of similar Associated Symptoms: diaphoresis, loss of appetite, nausea/vomiting - Related Data Home Medications Medication Instructions Recorded Confirmed Methadone HCl [Methadone Intensol] 85 mg PO DAILY 10/10/17 01/27/18 Allergies Allergy/AdvReac Type Severity Reaction Status Date / Time No Known Allergies Allergy Verified 02/05/20 05:11 Review of Systems ROS Statement: Those systems with pertinent positive or pertinent negative responses have been documented in the HPI. ROS Other: All systems not noted in ROS Statement are negative. Past Medical History Past Medical History: No Reported History Additional Past Medical History / Comment(s): migraine History of Any Multi-Drug Resistant Organisms: None Reported Past Surgical History: No Surgical Hx Reported Past Anesthesia/Blood Transfusion Reactions: No Reported Reaction Past Psychological History: Anxiety, Depression Smoking Status: Current every day smoker Past Alcohol Use History: None Reported Past Drug Use History: None Reported - Past Family History Father Additional Family Medical History / Comment(s): Father is alive at age 54 with no major medical problems. Mother Additional Family Medical History / Comment(s): Mother is alive at age 51 with no major medical problems. Sister(s) Additional Family Medical History / Comment(s): Patient has one sister with me ntal health issues. Patient has 1 brother with no major medical problems. Patient is 2 children ages 10 and 11 with no major medical problems. General Exam Limitations: no limitations General appearance: alert, in no apparent distress, anxious Head exam: Present: atraumatic, normocephalic, normal inspection Eye exam: Present: normal appearance, PERRL, EOMI. Absent: scleral icterus, conjunctival injection, periorbital swelling ENT exam: Present: normal exam, mucous membranes moist Neck exam: Present: normal inspection. Absent: tenderness, meningismus, lymphadenopathy Respiratory exam: Present: normal lung sounds bilaterally. Absent: respiratory distress, wheezes, rales, rhonchi, stridor Cardiovascular Exam: Present: normal rhythm, tachycardia, normal heart sounds. Absent: systolic murmur, diastolic murmur, rubs, gallop, clicks GI/Abdominal exam: Present: soft, normal bowel sounds. Absent: distended, tenderness, guarding, rebound, rigid Extremities exam: Present: normal inspection, full ROM, normal capillary refill. Absent: tenderness, pedal edema, joint swelling, calf tenderness Back exam: Present: normal inspection Neurological exam: Present: alert, oriented X3, CN II-XII intact Psychiatric exam: Present: normal affect, normal mood Skin exam: Present: warm, dry, intact, normal color. Absent: rash Course Vital Signs 02/05/20 02/05/20 05:05 06:55 Temperature 98.7 F 98.2 F Pulse Rate 106 H 73 Respiratory 18 16 Rate Blood Pressure 142/80 112/60 O2 Sat by Pulse 100 99 Oximetry - Reevaluation(s) Reevaluation #1: 02/05/20 05:54 Medical record is reviewed Patient acute distress feeling well lightheaded dizzy or weak Medical Decision Making - Medical Decision Making 34 female with dysfunctional uterine bleeding. Patient can be discharged home - Lab Data Result diagrams: 02/05/20 05:31 02/05/20 05:31 Lab Results 02/05/20 02/05/20 02/05/20 Range/Units 05:31 05:31 05:31 WBC 9.5 (3.8-10.6) k/uL RBC 4.61 (3.80-5.40) m/uL Hgb 13.5 (11.4-16.0) gm/dL Hct 41.4 (34.0-46.0) % MCV 89.7 (80.0-100.0) fL MCH 29.3 (25.0-35.0) pg MCHC 32.6 (31.0-37.0) g/dL RDW 12.5 (11.5-15.5) % Plt Count 366 (150-450) k/uL Neutrophils % 59 % Lymphocytes % 32 % Monocytes % 5 % Eosinophils % 2 % Basophils % 1 % Neutrophils # 5.6 (1.3-7.7) k/uL Lymphocytes # 3.0 (1.0-4.8) k/uL Monocytes # 0.4 (0-1.0) k/uL Eosinophils # 0.2 (0-0.7) k/uL Basophils # 0.0 (0-0.2) k/uL PT 10.4 (9.0-12.0) sec INR 1.0 (<1.2) APTT 22.2 (22.0-30.0) sec Sodium 141 (137-145) mmol/L Potassium 4.1 (3.5-5.1) mmol/L Chloride 108 H (98-107) mmol/L Carbon Dioxide 23 (22-30) mmol/L Anion Gap 10 mmol/L BUN 13 (7-17) mg/dL Creatinine 0.68 (0.52-1.04) mg/dL Est GFR (CKD-EPI)AfAm >90 (>60 ml/min/1.73 sqM) Est GFR (CKD-EPI)NonAf >90 (>60 ml/min/1.73 sqM) Glucose 98 (74-99) mg/dL Calcium 10.0 (8.4-10.2) mg/dL Magnesium 2.3 (1.6-2.3) mg/dL Total Bilirubin 0.5 (0.2-1.3) mg/dL AST 34 (14-36) U/L ALT 31 (4-34) U/L Alkaline Phosphatase 80 (38-126) U/L Troponin I (0.000-0.034) ng/mL Total Protein 8.4 H (6.3-8.2) g/dL Albumin 4.7 (3.5-5.0) g/dL Lipase 79 (23-300) U/L Blood Type Blood Type Recheck Bld Type Recheck Status Antibody Screen Spec Expiration Date 02/05/20 02/05/20 Range/Units 05:31 05:31 WBC (3.8-10.6) k/uL RBC (3.80-5.40) m/uL Hgb (11.4-16.0) gm/dL Hct (34.0-46.0) % MCV (80.0-100.0) fL MCH (25.0-35.0) pg MCHC (31.0-37.0) g/dL RDW (11.5-15.5) % Plt Count (150-450) k/uL Neutrophils % % Lymphocytes % % Monocytes % % Eosinophils % % Basophils % % Neutrophils # (1.3-7.7) k/uL Lymphocytes # (1.0-4.8) k/uL Monocytes # (0-1.0) k/uL Eosinophils # (0-0.7) k/uL Basophils # (0-0.2) k/uL PT (9.0-12.0) sec INR (<1.2) APTT (22.0-30.0) sec Sodium (137-145) mmol/L Potassium (3.5-5.1) mmol/L Chloride (98-107) mmol/L Carbon Dioxide (22-30) mmol/L Anion Gap mmol/L BUN (7-17) mg/dL Creatinine (0.52-1.04) mg/dL Est GFR (CKD-EPI)AfAm (>60 ml/min/1.73 sqM) Est GFR (CKD-EPI)NonAf (>60 ml/min/1.73 sqM) Glucose (74-99) mg/dL Calcium (8.4-10.2) mg/dL Magnesium (1.6-2.3) mg/dL Total Bilirubin (0.2-1.3) mg/dL AST (14-36) U/L ALT (4-34) U/L Alkaline Phosphatase (38-126) U/L Troponin I <0.012 (0.000-0.034) ng/mL Total Protein (6.3-8.2) g/dL Albumin (3.5-5.0) g/dL Lipase (23-300) U/L Blood Type O Positive Blood Type Recheck O Pos Bld Type Recheck Status No Antibody Screen NEGATIVE Spec Expiration Date 02/08/2020 - 2330 Disposition Clinical Impression: Gastritis, Acute anxiety, DUB (dysfunctional uterine bleeding) Disposition: HOME SELF-CARE Condition: Good Instructions (If sedation given, give patient instructions): Dysfunctional Uterine Bleeding (ED), Acute Nausea and Vomiting (ED) Is patient prescribed a controlled substance at d/c from ED?: No Referrals: Marco Castro DO [Primary Care Provider] - 1-2 days
[2020-02-05 05:45] LABS: Basophils % (A) 1 %; Eosinophils # (A) 0.2 k/uL (0-0.7); Eosinophils % (A) 2 %; HCT 41.4 % (34.0-46.0); HGB 13.5 gm/dL (11.4-16.0); Lymphocytes % (A) 32 %; MCH 29.3 pg (25.0-35.0); MCHC 32.6 g/dL (31.0-37.0); MCV 89.7 fL (80.0-100.0); Mean Platelet Volume 6.9; Monocytes # (A) 0.4 k/uL (0-1.0); Monocytes % (A) 5 %; Neutrophils # (A) 5.6 k/uL (1.3-7.7); Neutrophils % (A) 59 %; Platelet Count 366 k/uL (150-450); RBC 4.61 m/uL (3.80-5.40); RDW 12.5 % (11.5-15.5); WBC 9.5 k/uL (3.8-10.6)
[2020-02-05 05:57] LABS: ALT 31 U/L (4-34); AST 34 U/L (14-36); African American GFR (CKD) >90 (>60 ml/min/1.73 sqM); Albumin 4.7 g/dL (3.5-5.0); Alkaline Phosphatase 80 U/L (38-126); Anion Gap 10 mmol/L; Blood Urea Nitrogen 13 mg/dL (7-17); Carbon Dioxide 23 mmol/L (22-30); Chloride 108 mmol/L (98-107); Glucose 98 mg/dL (74-99); Magnesium 2.3 mg/dL (1.6-2.3); Non-African American GFR(CKD) >90 (>60 ml/min/1.73 sqM); Potassium 4.1 mmol/L (3.5-5.1); Sodium 141 mmol/L (137-145); Total Bilirubin 0.5 mg/dL (0.2-1.3); Total Protein 8.4 g/dL (6.3-8.2)
[2020-02-05 06:04] LABS: Partial Thromboplastin Time 22.2 sec (22.0-30.0); Prothrombin Time 10.4 sec (9.0-12.0)
[2020-02-05] MEDS ORDERED: ONDANSETRON 4 MG ODT STARTER PACK 2 TAB BTL PO STA (06:30)
[2020-02-05 06:56] VITALS: BP 112/60; PULSE 73; RESP 16; TEMP 98.2
== END 2020-02-05 06:57 | disposition home or self-care (01) ==
LOC: EC 05:03
DX: K29.70 Gastritis, unspecified, without bleeding (principal); F41.9 Anxiety disorder, unspecified; N93.8 Other specified abnormal uterine and vaginal bleeding; R53.1 Weakness; R61 Generalized hyperhidrosis; R19.7 Diarrhea, unspecified; F17.200 Nicotine dependence, unspecified, uncomplicated; Z79.891 Long term (current) use of opiate analgesic
CPT/HCPCS: 36415; 86900; 86901; 80053; 83690; 83735; 84484; 85025; 85610; 85730; 86850; 99284; 96374; 96375; 96361; J2405; C9113

== ENCOUNTER 2020-06-09 08:54 | Emergency (ER) | payer OTHER ==
[2020-06-09] MEDS ORDERED: ACETAMINOPHEN TAB 500 MG TAB PO STA (09:43)
[2020-06-09] MEDS ORDERED: SODIUM CHLORIDE 0.9% 2,000 ML IV ONE (09:44)
[2020-06-09] MEDS ORDERED: IBUPROFEN 600 MG TAB PO STA (09:44)
[2020-06-09 10:09] LABS: Basophils # (A) 0.1 k/uL (0-0.2); Basophils % (A) 1 %; Eosinophils # (A) 0.1 k/uL (0-0.7); Eosinophils % (A) 1 %; HCT 40.3 % (34.0-46.0); HGB 13.5 gm/dL (11.4-16.0); Lymphocytes # (A) 0.6 k/uL (1.0-4.8); Lymphocytes % (A) 5 %; MCH 30.5 pg (25.0-35.0); MCHC 33.4 g/dL (31.0-37.0); MCV 91.2 fL (80.0-100.0); Mean Platelet Volume 6.8; Monocytes # (A) 0.2 k/uL (0-1.0); Monocytes % (A) 2 %; Neutrophils % (A) 92 %; Platelet Count 315 k/uL (150-450); RBC 4.42 m/uL (3.80-5.40); RDW 12.5 % (11.5-15.5); WBC 10.9 k/uL (3.8-10.6)
--- NOTE | 2020-06-09 10:20 | XR ---
EXAMINATION TYPE: XR chest 1V portable DATE OF EXAM: 06/09/2020 COMPARISON: CT chest 12/15/2010 HISTORY: Pneumonia is suspected Covid 19 TECHNIQUE: Single frontal view of the chest is obtained. FINDINGS: Patient is rotated. There is no focal air space opacity, pleural effusion, or pneumothorax seen. The cardiac silhouette size is within normal limits. The osseous structures are intact, ther e is a spinal curvature. IMPRESSION: No acute process.
[2020-06-09 10:22] LABS: ALT 50 U/L (4-34); AST 44 U/L (14-36); African American GFR (CKD) >90 (>60 ml/min/1.73 sqM); Albumin 4.3 g/dL (3.5-5.0); Alkaline Phosphatase 75 U/L (38-126); Anion Gap 8 mmol/L; Blood Urea Nitrogen 16 mg/dL (7-17); C Reactive Protein 36.3 mg/L (<10.0); Calcium 9.4 mg/dL (8.4-10.2); Carbon Dioxide 24 mmol/L (22-30); Chloride 106 mmol/L (98-107); Glucose 117 mg/dL (74-99); LDH 448 U/L (313-618); Magnesium 1.7 mg/dL (1.6-2.3); Non-African American GFR(CKD) >90 (>60 ml/min/1.73 sqM); Potassium 4.3 mmol/L (3.5-5.1); Sodium 138 mmol/L (137-145); Total Protein 7.9 g/dL (6.3-8.2)
[2020-06-09 10:31] LABS: Prothrombin Time 10.5 sec (9.0-12.0)
--- NOTE | 2020-06-09 10:42 | ED ---
General Adult HPI - General Chief complaint: Headache Stated complaint: Nausea,vomiting Time Seen by Provider: 06/09/20 09:12 Source: patient, RN notes reviewed, old records reviewed Mode of arrival: ambulatory Limitations: no limitations - History of Present Illness Initial comments: Patient's a 35 rolled female presents emergency room today with fever, headache nausea vomiting. She complains of sinus pressure for the past 2 days. She was first department with a fear 103.1. Denies any significant cough. Patient reports that she's had no history of sick contacts that she is aware. She does have a history of IV drug abuse. - Related Data Home Medications Medication Instructions Recorded Confirmed Methadone HCl [Methadone Intensol] 85 mg PO DAILY 10/10/17 06/09/20 Medroxyprogesterone Acetate 150 mg IM ONCE 06/09/20 06/09/20 [Depo-Provera] Propranolol HCl 40 mg PO BID 06/09/20 06/09/20 hydrOXYzine HCL 25 mg PO TID PRN 06/09/20 06/09/20 Previous Rx's Medication Instructions Recorded Acetaminophen Tab [Tylenol] 650 mg PO Q6H #30 tab 06/09/20 Azithromycin [Zithromax Z-pack (6 250 mg PO DIRECTED #6 tab 06/09/20 tabs)] Ondansetron Odt [Zofran Odt] 4 mg PO Q8HR PRN #12 tab 06/09/20 Allergies Allergy/AdvReac Type Severity Reaction Status Date / Time No Known Allergies Allergy Verified 06/09/20 10:12 Review of Systems ROS Statement: Those systems with pertinent positive or pertinent negative responses have been documented in the HPI. ROS Other: All systems not noted in ROS Statement are negative. Past Medical History Past Medical History: No Reported History Additional Past Medical History / Comment(s): migraine History of Any Multi-Drug Resistant Organisms: None Reported Past Surgical History: No Surgical Hx Reported Past Anesthesia/Blood Transfusion Reactions: No Reported Reaction Past Psychological History: Anxiety, Depression Smoking Status: Current every day smoker Past Alcohol Use History: None Reported Past Drug Use History: IV Drug Use - Past Family History Father Additional Family Medical History / Comment(s): Father is alive at age 54 with no major medical problems. Mother Additional Family Medical History / Comment(s): Mother is alive at age 51 with no major medical problems. Sister(s) Additional Family Medical History / Comment(s): Patient has one sister with mental health issues. Patient has 1 brother with no major medical problems. Patient is 2 children ages 10 and 11 with no major medical problems. General Exam - General Exam Comments Initial Comments: 35-year-old female. Alert and oriented 3. Limitations: no limitations General appearance: alert, in no apparent distress Head exam: Present: atraumatic, normocephalic, normal inspection Eye exam: Present: normal appearance, PERRL, EOMI. Absent: scleral icterus, conjunctival injection, periorbital swelling ENT exam: Present: normal exam, mucous membranes moist Neck exam: Present: normal inspection. Absent: tenderness, meningismus, lymphadenopathy Respiratory exam: Present: normal lung sounds bilaterally. Absent: respiratory distress, wheezes, rales, rhonchi, stridor Cardiovascular Exam: Present: regular rate, normal rhythm, normal heart sounds. Absent: systolic murmur, diastolic murmur, rubs, gallop, clicks GI/Abdominal exam: Present: soft, normal bowel sounds. Absent: distended, t enderness, guarding, rebound, rigid Course Vital Signs 06/09/20 06/09/20 06/09/20 09:04 11:02 12:40 Temperature 103.1 F H 99.5 F 98.0 F Pulse Rate 115 H 78 86 Respiratory 18 16 18 Rate Blood Pressure 97/58 91/46 100/60 O2 Sat by Pulse 96 96 99 Oximetry 06/09/20 13:17 Temperature Pulse Rate 75 Respiratory 18 Rate Blood Pressure 97/56 O2 Sat by Pulse 99 Oximetry Medical Decision Making - Medical Decision Making 35-year-old female presents with 3 days of headache nausea vomiting sinus pressure. Patient had a fever 103 upon arrival. She is given IV fluids labwork obtained. She states that for Crohn a virus. Patient did have an elevated d-dimer. She did complain of mild cough. Computed tomography scan was completed showed no evidence for PE. Patient is does have some sinus tenderness. I discussed to treat the Patient for sinusitis but is likely viral syndrome. She does feel better after fluids and pain medicine and Motrin and Tylenol. Discussed appropriate follow-up with primary care doctor. - Lab Data Result diagrams: 06/09/20 09:50 06/09/20 09:50 Lab Results 06/09/20 06/09/20 06/09/20 Range/Units 09:50 09:50 09:50 WBC 10.9 H (3.8-10.6) k/uL RBC 4.42 (3.80-5.40) m/uL Hgb 13.5 (11.4-16.0) gm/dL Hct 40.3 (34.0-46.0) % MCV 91.2 (80.0-100.0) fL MCH 30.5 (25.0-35.0) pg MCHC 33.4 (31.0-37.0) g/dL RDW 12.5 (11.5-15.5) % Plt Count 315 (150-450) k/uL Neutrophils % 92 % Lymphocytes % 5 % Monocytes % 2 % Eosinophils % 1 % Basophils % 1 % Neutrophils # 10.0 H (1.3-7.7) k/uL Lymphocytes # 0.6 L (1.0-4.8) k/uL Monocytes # 0.2 (0-1.0) k/uL Eosinophils # 0.1 (0-0.7) k/uL Basophils # 0.1 (0-0.2) k/uL PT 10.5 (9.0-12.0) sec INR 1.0 (<1.2) APTT 21.1 L (22.0-30.0) sec D-Dimer 2.63 H (<0.60) mg/L FEU Sodium 138 (137-145) mmol/L Potassium 4.3 (3.5-5.1) mmol/L Chloride 106 (98-107) mmol/L Carbon Dioxide 24 (22-30) mmol/L Anion Gap 8 mmol/L BUN 16 (7-17) mg/dL Creatinine 0.82 (0.52-1.04) mg/dL Est GFR (CKD-EPI)AfAm >90 (>60 ml/min/1.73 sqM) Est GFR (CKD-EPI)NonAf >90 (>60 ml/min/1.73 sqM) Glucose 117 H (74-99) mg/dL Plasma Lactic Acid Amadou (0.7-2.0) mmol/L Calcium 9.4 (8.4-10.2) mg/dL Magnesium 1.7 (1.6-2.3) mg/dL Ferritin 56.5 (10.0-291.0) ng/mL Total Bilirubin 1.0 (0.2-1.3) mg/dL AST 44 H (14-36) U/L ALT 50 H (4-34) U/L Alkaline Phosphatase 75 (38-126) U/L Lactate Dehydrogenase 448 (313-618) U/L C-Reactive Protein 36.3 H (<10.0) mg/L Total Protein 7.9 (6.3-8.2) g/dL Albumin 4.3 (3.5-5.0) g/dL Procalcitonin (0.02-0.09) ng/mL 06/09/20 06/09/20 Range/Units 09:50 09:50 WBC (3.8-10.6) k/uL RBC (3.80-5.40) m/uL Hgb (11.4-16.0) gm/dL Hct (34.0-46.0) % MCV (80.0-100.0) fL MCH (25.0-35.0) pg MCHC (31.0-37.0) g/dL RDW (11.5-15.5) % Plt Count (150-450) k/uL Neutrophils % % Lymphocytes % % Monocytes % % Eosinophils % % Basophils % % Neutrophils # (1.3-7.7) k/uL Lymphocytes # (1.0-4.8) k/uL Monocytes # (0-1.0) k/uL Eosinophils # (0-0.7) k/uL Basophils # (0-0.2) k/uL PT (9.0-12.0) sec INR (<1.2) APTT (22.0-30.0) sec D-Dimer (<0.60) mg/L FEU Sodium (137-145) mmol/L Potassium (3.5-5.1) mmol/L Chloride (98-107) mmol/L Carbon Dioxide (22-30) mmol/L Anion Gap mmol/L BUN (7-17) mg/dL Creatinine (0.52-1.04) mg/dL Est GFR (CKD-EPI)AfAm (>60 ml/min/1.73 sqM) Est GFR (CKD-EPI)NonAf (>60 ml/min/1.73 sqM) Glucose (74-99) mg/dL Plasma Lactic Acid Amadou 1.4 (0.7-2.0) mmol/L Calcium (8.4-10.2) mg/dL Magnesium (1.6-2.3) mg/dL Ferritin (10.0-291.0) ng/mL Total Bilirubin (0.2-1.3) mg/dL AST (14-36) U/L ALT (4-34) U/L Alkaline Phosphatase (38-126) U/L Lactate Dehydrogenase (313-618) U/L C-Reactive Protein (<10.0) mg/L Total Protein (6.3-8.2) g/dL Albumin (3.5-5.0) g/dL Procalcitonin 0.78 H (0.02-0.09) ng/mL 06/09/20 10:46 EKG shows sinus rhythm nonspecific T-wave abnormality. Abnormal EKG. Ventricular rate of 88 bpm. Pulse 150 ms. Estrogen is 82 ms. QT QTc is 348/421 ms. - Radiology Data Radiology results: report reviewed CXR shows No acute process. CT she is breathing motion artifacts with limitation left upper lobe no definite parameters. Minimal emphysema change. Disposition Clinical Impression: Sinusitis, Fever, Nausea Disposition: HOME SELF-CARE Condition: Good Instructions (If sedation given, give patient instructions): Sinusitis (ED), Fever in Adults (ED) Additional Instructions: Take Medication as prescribed. Patient is to quarantine until results of Covid testing. Return to emergency department if any alarming signs or symptoms occur. Prescriptions: Acetaminophen Tab [Tylenol] 650 mg PO Q6H #30 tab Azithromycin [Zithromax Z-pack (6 tabs)] 250 mg PO DIRECTED #6 tab Ondansetron Odt [Zofran Odt] 4 mg PO Q8HR PRN #12 tab PRN Reason: Is patient prescribed a controlled substance at d/c from ED?: No Referrals: Marco Castro DO [Primary Care Provider] - 1-2 days Time of Disposition: 13:29
[2020-06-09 10:45] LABS: D-Dimer 2.63 mg/L FEU (<0.60); Partial Thromboplastin Time 21.1 sec (22.0-30.0)
[2020-06-09] MEDS ORDERED: SODIUM CHLORIDE 0.9% 1,000 ML IV ONE (12:26)
[2020-06-09 12:42] VITALS: RESP 18; TEMP 98
--- NOTE | 2020-06-09 12:55 | CT ---
EXAMINATION TYPE: CT chest angio for PE DATE OF EXAM: 06/09/2020 COMPARISON: Radiograph same day HISTORY: 35-year-old female Shortness of breath and fever TECHNIQUE: Contiguous axial scanning of the chest performed with IV Contrast, patient injected with 1 00 mL of Isovue 370. Coronal/sagittal MIP reconstructions performed. CT DLP: 269.3 mGycm Automated exposure control for dose reduction was used. FINDINGS: Heart normal size without pericardial effusion. No flattening of the interventricular septum or reflu x of contrast into the hepatic veins. Some prominent right hilar lymph nodes measuring up to 1.3 cm, probably reactive/post inflammatory. Aorta normal caliber with conventional arch vessel branching anatomy. Satisfactory opacification of the pulmonary arterial system. No large central pulmonary embolus. Britta thing motion especially in the left upper lobe and basilar lower lobes limiting assessment of the seg mental branches here no definite pulmonary embolus is seen Minimal emphysematous change. Dependent atelectasis along the posterior lower lobes. No consolidation or pleural effusion. Visualized upper abdomen shows no gross abnormality. Bones: Levoconvex curvature centered along the upper thoracic spine. IMPRESSION: 1. BREATHING MOTION ARTIFACTS CAUSE SOME LIMITATION ESPECIALLY IN THE LEFT UPPER LOBE. NO DEFINITE PU LMONARY EMBOLUS. 2. MINIMAL EMPHYSEMATOUS CHANGE.
[2020-06-09 13:17] VITALS: BP 97/56; PULSE 75
[2020-06-09 14:55] LABS: Ferritin 56.5 ng/mL (10.0-291.0)
== END 2020-06-09 13:39 | disposition home or self-care (01) ==
LOC: EC 08:54
DX: J32.9 Chronic sinusitis, unspecified (principal); R11.0 Nausea; F41.9 Anxiety disorder, unspecified; F32.9 Major depressive disorder, single episode, unspecified; F17.200 Nicotine dependence, unspecified, uncomplicated; Z79.899 Other long term (current) drug therapy
CPT/HCPCS: 36415; 93005; 85379; 80053; 82728; 83605; 83615; 83735; 85025; 85610; 85730; 86140; 87040; 84145; 71045; 71275; 99285; 96360; 96361 ×3; U0003; Q9967

== ENCOUNTER 2020-11-22 01:04 | Emergency (ER) | payer OTHER ==
[2020-11-22 01:20] VITALS: BP 123/84; PULSE 92; RESP 18; TEMP 98.6
[2020-11-22] MEDS ORDERED: diphenhydrAMINE 50 MG CAP PO STA (02:16)
[2020-11-22] MEDS ORDERED: KETOROLAC 15 MG/ML 1 ML VIAL IM STA (02:16)
[2020-11-22] MEDS ORDERED: dexAMETHasone 2 MG TAB PO STA (02:16)
[2020-11-22] MEDS ORDERED: PROCHLORPERAZINE 10 MG TAB PO ONE (02:30)
--- NOTE | 2020-11-22 02:36 | ED ---
Headache HPI - General Chief Complaint: Headache Stated Complaint: headache, vomiting Time Seen by Provider: 11/22/20 01:41 Mode of arrival: ambulatory Limitations: no limitations - Related Data Home Medications Medication Instructions Recorded Confirmed Methadone HCl [Methadone Intensol] 85 mg PO DAILY 10/10/17 06/09/20 Medroxyprogesterone Acetate 150 mg IM ONCE 06/09/20 06/09/20 [Depo-Provera] Propranolol HCl 40 mg PO BID 06/09/20 06/09/20 hydrOXYzine HCL 25 mg PO TID PRN 06/09/20 06/09/20 Previous Rx's Medication Instructions Recorded Acetaminophen Tab [Tylenol] 650 mg PO Q6H #30 tab 06/09/20 Azithromycin [Zithromax Z-pack (6 250 mg PO DIRECTED #6 tab 06/09/20 tabs)] Ondansetron Odt [Zofran Odt] 4 mg PO Q8HR PRN #12 tab 06/09/20 Allergies Allergy/AdvReac Type Severity Reaction Status Date / Time No Known Allergies Allergy Verified 11/22/20 01:20 Review of Systems ROS Statement: Those systems with pertinent positive or pertinent negative responses have been documented in the HPI. ROS Other: All systems not noted in ROS Statement are negative. Past Medical History Past Medical History: No Reported History Additional Past Medical History / Comment(s): migraine History of Any Multi-Drug Resistant Organisms: None Reported Past Surgical History: No Surgical Hx Reported Past Anesthesia/Blood Transfusion Reactions: No Reported Reaction Past Psychological History: Anxiety, Depression Smoking Status: Current every day smoker Past Alcohol Use History: None Reported Past Drug Use History: IV Drug Use - Past Family History Father Additional Family Medical History / Comment(s): Father is alive at age 54 with no major medical problems. Mother Additional Family Medical History / Comment(s): Mother is alive at age 51 with no major medical problems. Sister(s) Additional Family Medical History / Comment(s): Patient has one sister with mental health issues. Patient has 1 brother with no major medical problems. Patient is 2 children ages 10 and 11 with no major medical problems. General Exam Limitations: no limitations Course Vital Signs 11/22/20 01:16 Temperature 98.6 F Pulse Rate 92 Respiratory 18 Rate Blood Pressure 123/84 O2 Sat by Pulse 97 Oximetry Disposition Clinical Impression: Migraine headache Disposition: HOME SELF-CARE Condition: Good Instructions (If sedation given, give patient instructions): Acute Headache (ED) Is patient prescribed a controlled substance at d/c from ED?: No Referrals: Marco Castro DO [Primary Care Provider] - 1-2 days
== END 2020-11-22 03:19 | disposition home or self-care (01) ==
LOC: EC 01:04
DX: G43.909 Migraine, unspecified, not intractable, without status migrainosus (principal); F17.200 Nicotine dependence, unspecified, uncomplicated
CPT/HCPCS: 99283; 96372; S0183; J8540; J1885

== ENCOUNTER 2021-03-13 01:42 | Emergency (ER) | payer OTHER ==
[2021-03-13 01:51] VITALS: TEMP 97.9
[2021-03-13] MEDS ORDERED: ONDANSETRON 4 MG/2 ML VIAL IVP STA (01:59)
[2021-03-13] MEDS ORDERED: LORazepam 2 MG/ML INJ IV STA (02:05)
[2021-03-13] MEDS ORDERED: SODIUM CHLORIDE 0.9% 1,000 ML IV STA (02:05)
--- NOTE | 2021-03-13 02:24 | XR ---
EXAMINATION TYPE: XR KUB portable DATE OF EXAM: 03/13/2021 COMPARISON: NONE HISTORY: Nausea and vomiting TECHNIQUE: 2 views FINDINGS: Bowel gas pattern is normal. There is no sign of intestinal obstruction or pneumoperitoneum . Fecal pattern is normal. There is slight thoracolumbar dextroscoliosis. There are no pathologic simi cifications over the kidneys. Lung bases are clear. IMPRESSION: Nonacute abdomen.
[2021-03-13 02:55] LABS: ALT 44 U/L (4-34); AST 38 U/L (14-36); African American GFR (CKD) >90 (>60 ml/min/1.73 sqM); Albumin 4.9 g/dL (3.5-5.0); Alkaline Phosphatase 86 U/L (38-126); Amylase 51 U/L (30-110); Anion Gap 11 mmol/L; Blood Urea Nitrogen 12 mg/dL (7-17); Calcium 10.2 mg/dL (8.4-10.2); Carbon Dioxide 24 mmol/L (22-30); Chloride 107 mmol/L (98-107); Glucose 100 mg/dL (74-99); Lipase 59 U/L (23-300); Non-African American GFR(CKD) >90 (>60 ml/min/1.73 sqM); Potassium 3.7 mmol/L (3.5-5.1); Sodium 142 mmol/L (137-145); Total Bilirubin 0.4 mg/dL (0.2-1.3); Total Protein 8.4 g/dL (6.3-8.2)
--- NOTE | 2021-03-13 03:04 | ED ---
Nausea/Vomiting/Diarrhea HPI - General Chief complaint: Nausea/Vomiting/Diarrhea Stated complaint: Vomiting, abdominal and back pain Source: patient, family, RN notes reviewed Mode of arrival: ambulatory Limitations: no limitations - History of Present Illness Initial comments: Patient is a 35-year-old female that presents to emergency department complaining of intermittent nausea and vomiting. She notes that there are episodes of nausea and vomiting she had some pain down to her back. She notes that she has some mild abdominal discomfort but no pain. Patient did appear to be anxious while sitting up in bed during the exam interview. She denied any spoiled food ingestion. She was otherwise a well-appearing 35-year-old female patient denied any chest pain shortness of breath headache diarrhea constipation fever fatigue chills. - Related Data Home Medications Medication Instructions Recorded Confirmed Methadone HCl [Methadone Intensol] 85 mg PO DAILY 10/10/17 06/09/20 Medroxyprogesterone Acetate 150 mg IM ONCE 06/09/20 06/09/20 [Depo-Provera] Propranolol HCl 40 mg PO BID 06/09/20 06/09/20 hydrOXYzine HCL 25 mg PO TID PRN 06/09/20 06/09/20 Previous Rx's Medication Instructions Recorded Acetaminophen Tab [Tylenol] 650 mg PO Q6H #30 tab 06/09/20 Azithromycin [Zithromax Z-pack (6 250 mg PO DIRECTED #6 tab 06/09/20 tabs)] Ondansetron Odt [Zofran Odt] 4 mg PO Q8HR PRN #12 tab 06/09/20 Ondansetron Odt [Zofran Odt] 4 mg PO Q8HR PRN #10 tab 03/13/21 Allergies Allergy/AdvReac Type Severity Reaction Status Date / Time No Known Allergies Allergy Verified 03/13/21 01:50 Review of Systems ROS Statement: Those systems with pertinent positive or pertinent negative responses have been documented in the HPI. ROS Other: All systems not noted in ROS Statement are negative. Past Medical History Past Medical History: No Reported History Additional Past Medical History / Comment(s): migraine History of Any Multi-Drug Resistant Organisms: None Reported Past Surgical History: No Surgical Hx Reported Past Anesthesia/Blood Transfusion Reactions: No Reported Reaction Past Psychological History: Anxiety, Depression Smoking Status: Current every day smoker Past Alcohol Use History: None Reported Past Drug Use History: IV Drug Use - Past Family History Father Additional Family Medical History / Comment(s): Father is alive at age 54 with no major medical problems. Mother Additional Family Medical History / Comment(s): Mother is alive at age 51 with no major medical problems. Sister(s) Additional Family Medical History / Comment(s): Patient has one sister with mental health issues. Patient has 1 brother with no major medical problems. Patient is 2 children ages 10 and 11 with no major medical problems. General Exam Limitations: no limitations General appearance: alert, in no apparent distress Head exam: Present: atraumatic, normocephalic, normal inspection Eye exam: Present: normal appearance, PERRL, EOMI. Absent: scleral icterus, conjunctival injection, periorbital swelling Neck exam: Present: normal inspection Respiratory exam: Present: normal lung sounds bilaterally. Absent: respiratory distress, wheezes, rales, rhonchi, stridor Cardiovascular Exam: Present: regular rate, normal rhythm, normal heart sounds. Absent: systolic murmur, diastolic murmur, rubs, gallop, clicks GI/Abdominal exam: Present: soft, normal bowel sounds. Absent: distended, tenderness, guarding, rebound, rigid Extremities exam: Present: normal inspection, full ROM, normal capillary refill. Absent: tenderness, pedal edema, joint swelling, calf tenderness Neurological exam: Present: alert, oriented X3 Psychiatric exam: Present: normal affect, normal mood Skin exam: Present: warm, dry, intact, normal color. Absent: rash Course Vital Signs 03/13/21 01:47 Temperature 97.9 F Pulse Rate 94 Respiratory 18 Rate Blood Pressure 124/74 O2 Sat by Pulse 95 Oximetry Medical Decision Making - Medical Decision Making 35 she'll female complaining of intermittent nausea and vomiting with some abdominal discomfort. Labs, KUB, 4 mg Zofran, 1 mg Ativan ordered. KUB negative for any acute process. Labs unremarkable. Mild leukocytosis most likely reactive to nausea and vomiting. case discussed with Dr. Pérez, patient can discharge home with follow-up primary care. - Lab Data Result diagrams: 03/13/21 02:23 03/13/21 02:23 Lab Results 03/13/21 03/13/21 Range/Units 02:23 02:23 WBC 11.0 H (3.8-10.6) k/uL RBC 4.57 (3.80-5.40) m/uL Hgb 14.1 (11.4-16.0) gm/dL Hct 41.2 (34.0-46.0) % MCV 90.1 (80.0-100.0) fL MCH 30.9 (25.0-35.0) pg MCHC 34.3 (31.0-37.0) g/dL RDW 12.2 (11.5-15.5) % Plt Count 381 (150-450) k/uL MPV 7.3 Neutrophils % 67 % Lymphocytes % 25 % Monocytes % 6 % Eosinophils % 1 % Basophils % 0 % Neutrophils # 7.4 (1.3-7.7) k/uL Lymphocytes # 2.7 (1.0-4.8) k/uL Monocytes # 0.6 (0-1.0) k/uL Eosinophils # 0.1 (0-0.7) k/uL Basophils # 0.0 (0-0.2) k/uL Sodium 142 (137-145) mmol/L Potassium 3.7 (3.5-5.1) mmol/L Chloride 107 (98-107) mmol/L Carbon Dioxide 24 (22-30) mmol/L Anion Gap 11 mmol/L BUN 12 (7-17) mg/dL Creatinine 0.75 (0.52-1.04) mg/dL Est GFR (CKD-EPI)AfAm >90 (>60 ml/min/1.73 sqM) Est GFR (CKD-EPI)NonAf >90 (>60 ml/min/1.73 sqM) Glucose 100 H (74-99) mg/dL Calcium 10.2 (8.4-10.2) mg/dL Total Bilirubin 0.4 (0.2-1.3) mg/dL AST 38 H (14-36) U/L ALT 44 H (4-34) U/L Alkaline Phosphatase 86 (38-126) U/L Total Protein 8.4 H (6.3-8.2) g/dL Albumin 4.9 (3.5-5.0) g/dL Amylase 51 (30-110) U/L Lipase 59 (23-300) U/L - Radiology Data Radiology results: report reviewed, image reviewed KUB: Nonacute abdomen. Disposition Clinical Impression: Nausea & vomiting Disposition: HOME SELF-CARE Condition: Stable Instructions (If sedation given, give patient instructions): Acute Nausea and Vomiting (ED) Additional Instructions: Please return to the Emergency Department if symptoms worsen or any other concerns. Follow-up with primary care next 1-2 days. Take Zofran as prescribed. Eat a diet that is a bland, increase oral fluids. Prescriptions: Ondansetron Odt [Zofran Odt] 4 mg PO Q8HR PRN #10 tab PRN Reason: Nausea Is patient prescribed a controlled substance at d/c from ED?: No Referrals: Marco Castro DO [Primary Care Provider] - 1-2 days Time of Disposition: 03:20
[2021-03-13 03:07] LABS: Basophils % (A) 0 %; Eosinophils # (A) 0.1 k/uL (0-0.7); Eosinophils % (A) 1 %; HCT 41.2 % (34.0-46.0); HGB 14.1 gm/dL (11.4-16.0); Lymphocytes # (A) 2.7 k/uL (1.0-4.8); Lymphocytes % (A) 25 %; MCH 30.9 pg (25.0-35.0); MCHC 34.3 g/dL (31.0-37.0); MCV 90.1 fL (80.0-100.0); Mean Platelet Volume 7.3; Monocytes # (A) 0.6 k/uL (0-1.0); Monocytes % (A) 6 %; Neutrophils # (A) 7.4 k/uL (1.3-7.7); Neutrophils % (A) 67 %; Platelet Count 381 k/uL (150-450); RBC 4.57 m/uL (3.80-5.40); RDW 12.2 % (11.5-15.5)
[2021-03-13 03:29] LABS: Amorphous Sediment,Urine Rare /hpf; Appearance,Urine Cloudy (Clear); Bacteria,Urine Moderate /hpf; Bilirubin,Urine Negative (Negative); Blood,Urine Moderate (Negative); Budding Yeast,Urine Moderate /hpf; Color,Urine Yellow; Glucose,Urine (UA) Negative (Negative); Ketones,Urine Negative (Negative); Leukocyte Esterase,Urine Large (Negative); Mucus,Urine Moderate /hpf; Nitrite,Urine Negative (Negative); PH, Urine 5.5 (5.0-8.0); Protein,Urine 1+ (Negative); RBC,Urine 14 /hpf (0-5); Specific Gravity,Urine 1.037 (1.001-1.035); Squamous Epithelial Cell,Urine 49 /hpf (0-4); Urobilinogen,Urine <2.0 mg/dL (<2.0); WBC,Urine 90 /hpf (0-5)
[2021-03-13 03:30] LABS: Amphetamine Screen,Urine Not Detected (NotDetected); Barbiturate Screen,Urine Not Detected (NotDetected); Benzodiazepines Screen,Urine Not Detected (NotDetected); Cocaine Screen,Urine Not Detected (NotDetected); Methadone Screen, Urine Detected (NotDetected); Opiate Screen,Urine Not Detected (NotDetected); Oxycodone Screen, Urine Not Detected (NotDetected); Phencyclidine Screen,Urine Not Detected (NotDetected); Tricyclic Antidepressant,Urine Not Detected (NotDetected); Urn Cannabinoid Scrn Not Detected (NotDetected)
[2021-03-13 03:39] VITALS: BP 118/74; PULSE 86; RESP 16
== END 2021-03-13 03:39 | disposition home or self-care (01) ==
LOC: EC 01:42
DX: R11.2 Nausea with vomiting, unspecified (principal); F32.9 Major depressive disorder, single episode, unspecified; F41.9 Anxiety disorder, unspecified; F17.200 Nicotine dependence, unspecified, uncomplicated; F19.10 Other psychoactive substance abuse, uncomplicated; Z79.899 Other long term (current) drug therapy
CPT/HCPCS: 36415; 80053; 82150; 83690; 85025; 81001; 80306; 87086; 74018; 96374; 96375; 96361; 99284; J2060; J2405

== ENCOUNTER 2021-03-13 15:50 | Inpatient (IN) | payer MEDICAID, OTHER ==
[2021-03-13] MEDS ORDERED: ONDANSETRON 4 MG/2 ML VIAL IVP STA (16:23)
[2021-03-13] MEDS ORDERED: ONDANSETRON 4 MG TAB PO STA (16:58)
[2021-03-13 16:59] LABS: Amphetamine Screen,Urine Not Detected (NotDetected); Barbiturate Screen,Urine Not Detected (NotDetected); Benzodiazepines Screen,Urine Detected (NotDetected); Cocaine Screen,Urine Not Detected (NotDetected); Methadone Screen, Urine Detected (NotDetected); Opiate Screen,Urine Not Detected (NotDetected); Oxycodone Screen, Urine Not Detected (NotDetected); Phencyclidine Screen,Urine Not Detected (NotDetected); Tricyclic Antidepressant,Urine Not Detected (NotDetected); Urn Cannabinoid Scrn Not Detected (NotDetected)
--- NOTE | 2021-03-13 18:11 | ED ---
Psych HPI - General Chief Complaint: Psychiatric Symptoms Stated Complaint: vomiting-revisit Time Seen by Provider: 03/13/21 16:19 Source: patient, RN notes reviewed Mode of arrival: ambulatory - History of Present Illness Initial Comments: Patient is a 35-year-old female presents to emergency department complaining of suicidal ideations with a plan and some nausea vomiting. She was seen late last night early this morning for the nausea vomiting. Shebeen taking her Zofran which seems to have helped symptoms little bit. She notes that she's been depressed for the past 3 weeks and been having suicidal thoughts for that time and he just been getting worse. She denied any other issues or complaints at this time. She was well-appearing 35-year-old female. She denied any chest pain shortness breath headache diarrhea constipation fever fatigue chills. - Related Data Home Medications Medication Instructions Recorded Confirmed Methadone HCl [Methadone Intensol] 85 mg PO DIRECTED 10/10/17 03/13/21 Ascorbic Acid [Vitamin C] 500 mg PO DAILY 03/13/21 03/13/21 Ibuprofen [Motrin Ib] 400 - 800 mg PO Q4-6H PRN 03/13/21 03/13/21 Multivitamins, Thera [Multivitamin 1 tab PO DAILY 03/13/21 03/13/21 (formulary)] Previous Rx's Medication Instructions Recorded Ondansetron Odt [Zofran Odt] 4 mg PO Q8HR PRN #10 tab 03/13/21 Allergies Allergy/AdvReac Type Severity Reaction Status Date / Time No Known Allergies Allergy Verified 03/13/21 19:47 Review of Systems ROS Statement: Those systems with pertinent positive or pertinent negative responses have been documented in the HPI. ROS Other: All systems not noted in ROS Statement are negative. Past Medical History Past Medical History: No Reported History Additional Past Medical History / Comment(s): migraine History of Any Multi-Drug Resistant Organisms: None Reported Past Surgical History: No Surgical Hx Reported Past Anesthesia/Blood Transfusion Reactions: No Reported Reaction Past Psychological History: Anxiety, Depression Smoking Status: Current every day smoker Past Alcohol Use History: None Reported Past Drug Use History: IV Drug Use - Past Family History Father Additional Family Medical History / Comment(s): Father is alive at age 54 with no major medical problems. Mother Additional Family Medical History / Comment(s): Mother is alive at age 51 with no major medical problems. Sister(s) Additional Family Medical History / Comment(s): Patient has one sister with mental health issues. Patient has 1 brother with no major medical problems. Patient is 2 children ages 10 and 11 with no major medical problems. General Exam Limitations: no limitations General appearance: alert, in no apparent distress Head exam: Present: atraumatic, normocephalic, normal inspection Eye exam: Present: normal appearance, PERRL, EOMI. Absent: scleral icterus, conjunctival injection, periorbital swelling Neck exam: Present: normal inspection Respiratory exam: Present: normal lung sounds bilaterally. Absent: respiratory distress, wheezes, rales, rhonchi, stridor Cardiovascular Exam: Present: regular rate, normal rhythm, normal heart sounds. Absent: systolic murmur, diastolic murmur, rubs, gallop, clicks GI/Abdominal exam: Present: soft, normal bowel sounds. Absent: distended, tenderness, guarding, rebound, rigid Extremities exam: Present: normal inspection, full ROM, normal capillary refill. Absent: tenderness, pedal edema, joint swelling, calf tenderness Neurological exam: Present: alert, oriented X3 Psychiatric exam: Present: normal affect, depressed, suicidal ideation. Absent: homicidal ideation Skin exam: Present: warm, dry, intact, normal color. Absent: rash Course Vital Signs 03/13/21 03/13/21 16:12 17:39 Temperature 98.2 F 98.8 F Pulse Rate 87 98 Respiratory 16 20 Rate Blood Pressure 134/68 113/71 O2 Sat by Pulse 99 99 Oximetry Medical Decision Making - Medical Decision Making 35-year-old female female complaining suicidal ideations with a plan. Urine drug screen, breath alcohol test, 4 mg of Zofran ordered. Patient will be cleared for EPS evaluation. Case discussed with Dr. Morales - Lab Data Lab Results 03/13/21 Range/Units 16:31 Urine Opiates Screen Not Detected (NotDetected) Ur Oxycodone Screen Not Detected (NotDetected) Urine Methadone Screen Detected H (NotDetected) Ur Propoxyphene Screen Not Detected (NotDetected) Ur Barbiturates Screen Not Detected (NotDetected) U Tricyclic Antidepress Not Detected (NotDetected) Ur Phencyclidine Scrn Not Detected (NotDetected) Ur Amphetamines Screen Not Detected (NotDetected) U Methamphetamines Scrn Not Detected (NotDetected) U Benzodiazepines Scrn Detected H (NotDetected) Urine Cocaine Screen Not Detected (NotDetected) U Marijuana (THC) Screen Not Detected (NotDetected) Disposition Clinical Impression: Suicidal ideation Disposition: ADMITTED IP TO THIS [facility] Condition: Stable Referrals: Marco Castro DO [Primary Care Provider] - 1-2 days Time of Disposition: 20:44
[2021-03-13] MEDS ORDERED: cefTRIAXone IN SWFI 1,000 MG/10 ML SYRINGE IVP STA (19:50)
[2021-03-13] MEDS ORDERED: cefTRIAXone 1,000 MG VIAL (IM USE) IM STA (20:04)
[2021-03-13] MEDS ORDERED: ONDANSETRON ODT 4 MG TAB PO PRN (22:01)
[2021-03-13] MEDS ORDERED: LORazepam 1 MG TAB PO PRN (22:13)
[2021-03-13] MEDS ORDERED: MAG HYDROX/AL HYDROX/SIMETH 30 ML CUP PO PRN (22:13)
[2021-03-13] MEDS ORDERED: MAGNESIUM HYDROXIDE 2,400 MG/10 ML CUP PO PRN (22:13)
[2021-03-13] MEDS ORDERED: LORazepam 2 MG/ML INJ IM PRN (22:15)
[2021-03-13] MEDS ORDERED: QUEtiapine 50 MG TAB PO PRN (22:15)
[2021-03-14] MEDS: NICOTINE 14MG/24HR PATCH TRANSDERM SCH (07:57)
[2021-03-14] MEDS ORDERED: NON FORMULARY DRUG (Methadone Hcl [Methadone Intensol] 10 MG/ML Oral.Conc) PO SCH (08:00)
--- NOTE | 2021-03-14 12:38 | P.HP ---
Psychiatric H&P - . H&P Date: 03/14/21 History & Physical: Allergies Allergy/AdvReac Type Severity Reaction Status Date / Time No Known Allergies Allergy Verified 03/13/21 19:47 Vital Signs Temp 97.9 F 03/14/21 07:02 Pulse 97 03/14/21 07:02 Resp 18 03/14/21 07:02 BP 129/69 03/14/21 07:02 Pulse Ox 97 03/13/21 22:00 Intake & Output 03/13/21 03/14/21 03/14/21 18:59 06:59 18:59 Weight 85.729 kg 85.729 kg Laboratory Last Values Urine Opiates Screen Not Detected (NotDetected) 03/13/21 16:31 Ur Oxycodone Screen Not Detected (NotDetected) 03/13/21 16:31 Urine Methadone Screen Detected (NotDetected) H 03/13/21 16:31 Ur Propoxyphene Screen Not Detected (NotDetected) 03/13/21 16:31 Ur Barbiturates Screen Not Detected (NotDetected) 03/13/21 16:31 U Tricyclic Antidepress Not Detected (NotDetected) 03/13/21 16:31 Ur Phencyclidine Scrn Not Detected (NotDetected) 03/13/21 16:31 Ur Amphetamines Screen Not Detected (NotDetected) 03/13/21 16:31 U Methamphetamines Scrn Not Detected (NotDetected) 03/13/21 16:31 U Benzodiazepines Scrn Detected (NotDetected) H 03/13/21 16:31 Urine Cocaine Screen Not Detected (NotDetected) 03/13/21 16:31 U Marijuana (THC) Screen Not Detected (NotDetected) 03/13/21 16:31 03/14/21 10:36 IDENTIFYING DATA: Patient is a 35-year-old female with a history of opiate use disorder currently on methadone, has 2 kids, temoe, lives in a house, works cleaning houses. HPI: Patient presented to the hospital yesterday with increasing depression for the past 3 weeks according to ER report. Patient was also endorsing in the ER that she was suicidal with a plan. She is also expressing nausea and vomiting. Patient is currently on methadone and receiving her doses from [facility]. Her UDS was positive for methadone and benzodiazepines. Patient was interviewed today in the office and appeared to be disheveled in appearance however it was also upset and tearful. She had a soft tone of voice. She states that "not much of anything is going on at the problem". She claims that she has been depressed for several months now and denies any triggers or any recent stressors. 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 She claims that she does have anxiety during the day. She claims that she still feeling suicidal however has no plan or intent at this time. She claims that at home she was having thoughts of wanting to overdose however stopped due to her kids. She claims that she has been sober from using opiates for the past 8 years. She claims that she was previously on antidepressant medications and seeing a psychiatrist however her family told her to stop taking the medications and she's been off them for over a year now. She can that her sleep and appetite are poor. Patient denies any homicidal ideations intent or plan. At this time patient denies any auditory or visual hallucinations. Patient denies any flight of ideas racing thoughts and increased in goal directed behavior. Patient admits to using cigarettes daily. She claims that she is to use opiates/heroin several years ago however has been sober for 8 years now and taking methadone. PAST PSYCHIATRIC HISTORY: Patient states that she has history of depression and anxiety. Patient denies being on any psychiatric medications. Patient was previously psychiatrically admitted in February 2017 to the mental health unit. Patient denies any psychiatric outpatient follow-up. Patient denies any history of suicide attempts in the past. PMH: Migraines ALLERGIES: as per EMR CHEMICAL DEPENDENCY HISTORY: as per HPI FAMILY PSYCHIATRIC/SUBSTANCE USE HISTORY: She claims that her sister has some form mental illness. SOCIAL HISTORY: Patient was born and raised in [place]. She claims that she completed some college. She states that she has 2 kids and lives with her fianc in a house. She claims that she works cleaning houses and has her own business. She denies any legal problems of snf or imprisonment.. MENTAL STATUS EXAM: General Appearance: Patient appears to be disheveled, stated age is alert, visibly upset and tearful. Attempts to cooperate. Patient appears to have poor hygiene and grooming. Behavior: Patient is seated without any agitated behavior. Attempts to cooperate. Tearful. Speech: Patient's speech is fluent and nonpressured. Soft tone Mood/Affect: Patient reports their mood is depressed, affect is congruent and constricted. Suicidality/Homicidality: Patient denies having any homicidal ideation intent or plan. She admits to ongoing suicidal thoughts however no intent or plan. Perceptions: Patient denies any visual hallucinations and denies any auditory hallucinations Though content/process: There is no evidence of any delusional thought content and thought process is linear and goal-directed. Memory and concentration: AOX3, grossly intact for the purposes of this session. Can spell "WORLD" backwards Judgment and insight: poor STRENGTHS/WEAKNESSES: strength is that patient is resilient. Weakness is that patient has poor judgment and is impulsive INTELLECT: average IMPRESSIONS: Major depressive disorder, recurrent, severe without psychotic features Anxiety disorder unspecified Opioid dependence, currently on agonist therapy Nicotine dependence PLAN: -Patient is admitted under voluntary status to [facility]HU for stabilization of psychiatric symptoms and safety. Patient has signed adult voluntary form and medication consent and is placed in patient's chart. -Medications : Will start patient on her home dose of methadone. ordered ekg. Zoloft 50 mg daily for mood/anxiety, Remeron 15 mg daily at bedtime for insomnia/appetite/mood. -Ativan and Haldol PRN for agitation/aggression -Patient was counselled on substance abuse and desired to cut back on use -Patient was informed of the risks, benefits and side effects of the medication and patient verbally consented to taking the medications. Patient signed med consent form and was placed in chart. -Internal Medicine consult to perform medical evaluation and physical. -NRT - nicotine patch -SW on board for discharge planning. Encourage patient to participate in groups to work on coping skills. 03/14/21 11:47 03/14/21 12:32
[2021-03-14] MEDS: METHADONE 10 MG TAB PO SCH (13:08)
[2021-03-14] MEDS: MULTIVITAMINS, THERA 1 EACH TAB PO SCH (13:09)
[2021-03-14] MEDS: SERTRALINE 50 MG TAB PO SCH (13:09)
[2021-03-14] MEDS: ASCORBIC ACID 500 MG TAB PO SCH (13:09)
[2021-03-14] MEDS: METHADONE 5 MG TAB PO SCH ×2 (13:29→14:29)
--- NOTE | 2021-03-14 17:25 | P.CONS ---
History of Present Illness - Reason for Consult Consult date: 03/14/21 Medical management Requesting physician: Zeeshan Nance - Chief Complaint Depressed - History of Present Illness Consultation: This is a pleasant 35-year-old patient, presented to the ER. Patient been rather depressed and was started having suicidal ideations. And decided to come to the ER. Patient does take methadone because of prior history of hemorrhoid use. Has not done so for last 3 years. Patient is a cigarette smoker. Patient been having poor sleep. Decreased appetite. Does not know she lost the weight. Feels a bit rundown and tired. Patient's had tremor from a young age. Does not interfere with her activity. Denies any fever or chills. No respiratory symptoms. Patient also developed insect bite on the left thigh. Some area of redness around the same. Review of systems: GEN.: Tired, decreased appetite EYES: None HEENT: None NECK: None RESPIRATORY: None CARDIOVASCULAR: None GASTROINTESTINAL: None GENITOURINARY: None MUSCULOSKELETAL: None LYMPHATICS: None HEMATOLOGICAL: None PSYCHIATRY: Depressed NEUROLOGICAL: Poor sleep Past medical history to include: Anxiety depression Social history: 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 Smokes about half a pack to three-quarter packs a day for close to 25 years. Patient did heroin and opiate abuse and has been on methadone to the [facility] for last 3 years. Family history: Reviewed, noncontributory to presentation Physical examination: VITAL SIGNS: 97.9, 97, 18, 129/69, 97% room air GENERAL: BMI 28.7, sitting up in chair, a bit down appearing. EYES: Pupils equal. Conjunctiva normal. HEENT: External appearance of nose and ears normal, oral cavity grossly normal. NECK: JVD not raised; masses not palpable. HEART: First and second heart sounds are normal; no edema. LUNGS: Respiratory rate normal; clear to auscultation. ABDOMEN: Soft, nontender, liver spleen not palpable, no masses palpable. PSYCH: Alert and oriented x3; mood and affect normal. NEUROLOGICAL: Cranial nerves grossly intact; no facial asymmetry, power and sensation grossly intact. Fine tremors DERMATOLOGICAL: Patient has a circulararea off induration with surrounding redness ion the left anterior thigh. LYMPHATICS: No lymph nodes palpable in the axilla and neck INVESTIGATIONS, reviewed in the clinical context: Urine drug screen: Positive for methadone, benzodiazepine Assessment and plan: -Familial tremor. This does not interfere with patient's activities. May need medications down the road but not at this point. This was discussed with the patient -Chronic nicotine dependence, cigarette smoker Counseled. Nicotine patch -Insomnia secondary to depression Patient started on mirtazapine and Zoloft, that should help -Anorexia due to depression Hopefully patient should better with Zoloft -Hypogeusia This could be possibly contribution from smoking Had a lengthy discussion with the patient. Including discontinue smoking. Patient also due mouth wash with warm water and salt and lemon. Also also to use a tongue scraper and hopefully this will improve her taste.. Thank you Dr. Nance Past Medical History Past Medical History: No Reported History Additional Past Medical History / Comment(s): migraine History of Any Multi-Drug Resistant Organisms: None Reported Past Surgical History: No Surgical Hx Reported Past Anesthesia/Blood Transfusion Reactions: No Reported Reaction Past Psychological History: Anxiety, Depression Smoking Status: Current every day smoker Past Alcohol Use History: None Reported Additional Past Alcohol Use History / Comment(s): Patient is a smoker of a half a pack to 1 pack per day for 15+ years. She denies any marijuana use. She does have history of heroin and opiate abuse but has been on the methadone program through [facility] for the past 3 years. Past Drug Use History: IV Drug Use Additional Drug Use History / Comment(s): pt. started abusing herion and other opiates at age 23, last use 3 years ago. - Past Family History Father Additional Family Medical History / Comment(s): Father is alive at age 54 with no major medical problems. Mother Additional Family Medical History / Comment(s): Mother is alive at age 51 with no major medical problems. Sister(s) Additional Family Medical History / Comment(s): Patient has one sister with mental health issues. Patient has 1 brother with no major medical problems. Patient is 2 children ages 10 and 11 with no major medical problems. Medications and Allergies Home Medications Medication Instructions Recorded Confirmed Type Methadone HCl [Methadone Intensol] 85 mg PO DAILY 10/10/17 03/14/21 History Ascorbic Acid [Vitamin C] 500 mg PO DAILY 03/13/21 03/13/21 History Ibuprofen [Motrin Ib] 400 - 800 mg PO Q4-6H PRN 03/13/21 03/13/21 History Multivitamins, Thera [Multivitamin 1 tab PO DAILY 03/13/21 03/13/21 History (formulary)] Ondansetron Odt [Zofran Odt] 4 mg PO Q8HR PRN #10 tab 03/13/21 03/13/21 Rx Allergies Allergy/AdvReac Type Severity Reaction Status Date / Time No Known Allergies Allergy Verified 03/13/21 19:47 Physical Exam Vitals: Vital Signs Temp Pulse Pulse Resp BP BP Pulse Ox 03/14/21 07:02 97.9 F 97 18 129/69 03/13/21 23:26 97.9 F 98 16 130/81 03/13/21 22:00 98.5 F 94 18 113/74 97 03/13/21 17:39 98.8 F 98 20 113/71 99 03/13/21 16:12 98.2 F 87 16 134/68 99 Intake and Output 03/13/21 03/14/21 03/14/21 22:59 06:59 14:59 Other: Weight 85.729 kg 85.729 kg Results Labs: Abnormal Lab Results - Last 24 Hours (Table) 03/13/21 Range/Units 16:31 Urine Methadone Screen Detected H (NotDetected) U Benzodiazepines Scrn Detected H (NotDetected)
[2021-03-14] MEDS: CEPHALEXIN 250 MG CAP PO SCH ×2 (18:22→20:48)
[2021-03-14] MEDS ORDERED: MIRTAZAPINE 15 MG TAB PO SCH (21:00)
[2021-03-15 07:05] LABS: Basophils # (A) 0.1 k/uL (0-0.2); Basophils % (A) 1 %; Eosinophils # (A) 0.2 k/uL (0-0.7); Eosinophils % (A) 3 %; HCT 45.5 % (34.0-46.0); HGB 15.3 gm/dL (11.4-16.0); Lymphocytes # (A) 3.9 k/uL (1.0-4.8); Lymphocytes % (A) 44 %; MCH 31.2 pg (25.0-35.0); MCHC 33.5 g/dL (31.0-37.0); Monocytes # (A) 0.5 k/uL (0-1.0); Monocytes % (A) 6 %; Neutrophils % (A) 45 %; Platelet Count 314 k/uL (150-450); RBC 4.89 m/uL (3.80-5.40); RDW 12.3 % (11.5-15.5); WBC 8.9 k/uL (3.8-10.6)
[2021-03-15 07:05] LABS: ALT 44 U/L (4-34); AST 53 U/L (14-36); African American GFR (CKD) >90 (>60 ml/min/1.73 sqM); Albumin 4.5 g/dL (3.5-5.0); Alkaline Phosphatase 70 U/L (38-126); Anion Gap 11 mmol/L; Blood Urea Nitrogen 12 mg/dL (7-17); Calcium 9.9 mg/dL (8.4-10.2); Carbon Dioxide 24 mmol/L (22-30); Chloride 107 mmol/L (98-107); Glucose 97 mg/dL (74-99); Non-African American GFR(CKD) >90 (>60 ml/min/1.73 sqM); Potassium 4.5 mmol/L (3.5-5.1); Sodium 142 mmol/L (137-145); Total Bilirubin 0.5 mg/dL (0.2-1.3); Total Protein 7.8 g/dL (6.3-8.2)
[2021-03-15] MEDS: METHADONE 10 MG TAB PO SCH (08:13)
[2021-03-15] MEDS: METHADONE 5 MG TAB PO SCH (08:14)
[2021-03-15] MEDS: CEPHALEXIN 250 MG CAP PO SCH ×4 (08:14→21:14)
[2021-03-15] MEDS: MULTIVITAMINS, THERA 1 EACH TAB PO SCH (08:14)
[2021-03-15] MEDS: SERTRALINE 50 MG TAB PO SCH (08:14)
[2021-03-15] MEDS: NICOTINE 14MG/24HR PATCH TRANSDERM SCH (08:14)
[2021-03-15] MEDS: ASCORBIC ACID 500 MG TAB PO SCH (08:14)
--- NOTE | 2021-03-15 09:21 | P.PN ---
Progress Note - Text Progress Note Date: 03/15/21 Interval History: Patient was seen wandering the hallways and was directable and agreeable to sp eak with signwriter in the office. Patient continues to appear to have poor hygiene and grooming and was crying near the nurse's desk. Patient continued to cry throughout the interview and states "I don't know why I'm crying so much". She did not identify any new stressors however did state that she misses her children. She claims that her fianc won't be able to visit her tonight as he has to work. She could not identify anybody else that might be able to see her. She states that she still feeling depressed and feels that the medications have not helped her get. She claims that she had mild improvement in her sleep last night however still is finding it difficult to initiate sleep. She was agreeable to try melatonin have her dose of Remeron increased. She states that she has been going to some groups thus far. At this time patient denies any homical ideations, intent or plan. She claims that she is still having suicidal thoughts however no intent or plan. Patient denies any auditory, visual hallucinations and denies any paranoia or delusions. Patient denies any side effects from the medications and has been compliant with meds. Mental Status Exam: General Appearance: Patient appears to be stated age is alert, visibly upset and tearful. Attempts to cooperate. Patient appears to have poor hygiene and grooming. Behavior: Patient is seated without any agitated behavior. Attempts to cooperate. Tearful. Speech: Patient's speech is fluent and nonpressured. Soft tone Mood/Affect: Patient reports their mood is depressed, affect is congruent and constricted. Suicidality/Homicidality: Patient denies having any homicidal ideation intent or plan. She admits to ongoing suicidal thoughts however no intent or plan. Perceptions: Patient denies any visual hallucinations and denies any auditory hallucinations Though content/process: There is no evidence of any delusional thought content and thought process is linear and goal-directed. Memory and concentration: AOX3, grossly intact for the purposes of this session. Judgment and insight: Improving Assessment Major depressive disorder, recurrent, severe without psychotic features Anxiety disorder unspecified Opioid dependence, currently on agonist therapy Nicotine dependence Plan: -Patient continues to meet criteria for inpatient psychiatric admission for symptom stabilization and safety. Patient has signed adult voluntary form and medication consent and was placed in patient's chart. -Medications: Continue with methadone at home dose 85 mg per day. Increase Zoloft to 100 mg daily for mood/anxiety. Increased Remeron to 30 mg daily at bedtime for insomnia/appetite/mood. Added melatonin 5 mg daily at bedtime for sleep. -When necessary Ativan and Haldol for agitation/aggression. -NRT - nicotine patch -SW on board for discharge planning. Encouraged the patient to participate in milieu.
[2021-03-15 14:25] LABS: Chol/HDL Ratio 4.67; Cholesterol 168 mg/dL (0-200); LDL Cholesterol,Calculated 115.6 mg/dL (0.0-131.0)
[2021-03-15 18:18] LABS: Hemoglobin A1C 5.3 % (4.0-6.0)
[2021-03-15] MEDS: MELATONIN 5 MG TABLET PO SCH (20:12)
[2021-03-15] MEDS ORDERED: MIRTAZAPINE 15 MG TAB PO SCH (21:00)
[2021-03-16] MEDS: METHADONE 10 MG TAB PO SCH (08:48)
[2021-03-16] MEDS: NICOTINE 14MG/24HR PATCH TRANSDERM SCH (08:48)
[2021-03-16] MEDS: METHADONE 5 MG TAB PO SCH (08:48)
[2021-03-16] MEDS: SERTRALINE 100 MG TAB PO SCH (08:49)
[2021-03-16] MEDS: MULTIVITAMINS, THERA 1 EACH TAB PO SCH (08:49)
[2021-03-16] MEDS: ASCORBIC ACID 500 MG TAB PO SCH (08:49)
[2021-03-16] MEDS: CEPHALEXIN 250 MG CAP PO SCH ×4 (08:52→21:03)
--- NOTE | 2021-03-16 11:11 | P.PN ---
Progress Note - Text Progress Note Date: 03/16/21 Interval History: Patient was seen wandering the hallways and was directable and agreeable to sp javi with typewriter tester in the office. Patient appeared to be speaking with another patient on the unit before speaking with the typewriter tester. Patient appeared to have mild improvement in her hygiene and grooming today and was not tearful during the interview. She claims that she still feeling fairly depressed however claims that her anxiety has improved mildly since yesterday. She states that she misses her family and was focused on discharge. She was fairly directable and appropriate during the conversation. She claims that she is going to groups and trying to work on her coping skills. She claims that she had mild improvement in her sleep last night however was agreeable to try Seroquel instead of Remeron tonight. At this time patient denies any homical ideations, intent or plan. She is denying any suicidal thoughts today. Patient denies any auditory, visual hallucinations and denies any paranoia or delusions. Patient denies any side effects from the medications and has been compliant with meds. Mental Status Exam: General Appearance: Patient appears to be stated age is alert, more cooperative today. Attempts to cooperate. Patient appears to have improving hygiene and grooming. Behavior: Patient is seated without any agitated behavior. Attempts to cooperate. Speech: Patient's speech is fluent and nonpressured. Soft tone Mood/Affect: Patient reports their mood is depressed, affect is congruent and constricted. Suicidality/Homicidality: Patient denies having any homicidal ideation intent or plan. She admits to ongoing suicidal thoughts however no intent or plan. Perceptions: Patient denies any visual hallucinations and denies any auditory hallucinations Though content/process: There is no evidence of any delusional thought content and thought process is linear and goal-directed. Memory and concentration: AOX3, grossly intact for the purposes of this session. Judgment and insight: Improving Assessment Major depressive disorder, recurrent, severe without psychotic features Anxiety disorder unspecified Opioid dependence, currently on agonist therapy Nicotine dependence Plan: -Patient continues to meet criteria for inpatient psychiatric admission for symptom stabilization and safety. Patient has signed adult voluntary form and medication consent and was placed in patient's chart. -Medications: Continue with methadone at home dose 85 mg per day. Zoloft to 100 mg daily for mood/anxiety. Discontinued Remeron and replaced with Seroquel 50 mg daily at bedtime for insomnia/mood adjunct. melatonin 5 mg daily at bedtime for sleep. -When necessary Ativan and Haldol for agitation/aggression. -NRT - nicotine patch -SW on board for discharge planning. Encouraged the patient to participate in milieu. Likely discharge in 1-2 days back home.
[2021-03-16] MEDS: ACETAMINOPHEN TAB 325 MG TAB PO PRN ×2 (11:13→17:23)
--- NOTE | 2021-03-16 17:24 | P.PN ---
Progress Note - Text Progress Note Date: 03/16/21 - Chief Complaint Depressed Consultation: This is a pleasant 35-year-old patient, presented to the ER. Patient been rather depressed and was started having suicidal ideations. And decided to come to the ER. Patient does take methadone because of prior history of hemorrhoid use. Has not done so for last 3 years. Patient is a cigarette smoker. Patient been having poor sleep. Decreased appetite. Does not know she lost the weight. Feels a bit rundown and tired. Patient's had tremor from a young age. Does not interfere with her activity. Denies any fever or chills. No respiratory symptoms. Patient also developed insect bite on the left thigh. Some area of redness around the same. March 16: Patient is sleeping bit better. Oral intake is improving. Still depressed. Review of systems: Was done for constitutional, cardiovascular, GI, pulmonary. Psychiatry relevant finding as above Active Medications Acetaminophen (Acetaminophen Tab 325 Mg Tab) 650 mg PO Q4HR PRN PRN Reason: Pain/Discomfort Last Admin: 03/16/21 11:13 Dose: 650 mg Documented by: Al Hydroxide/Mg Hydroxide (Mag Hydrox/Al Hydrox/Simeth 30 Ml Cup) 30 ml PO Q4HR PRN PRN Reason: GI Upset Ascorbic Acid (Ascorbic Acid 500 Mg Tab) 500 mg PO DAILY [facility] Last Admin: 03/16/21 08:49 Dose: 500 mg Documented by: Cephalexin (Cephalexin 250 Mg Cap) 250 mg PO QID [facility] Stop: 03/19/21 13:01 Last Admin: 03/16/21 15:47 Dose: 250 mg Documented by: Lorazepam (Lorazepam 1 Mg Tab) 1 mg PO TID PRN PRN Reason: Anxiety, Agitation Last Admin: 03/13/21 23:49 Dose: 1 mg Documented by: Lorazepam (Lorazepam 2 Mg/Ml Inj) 1 mg IM TID PRN PRN Reason: Agitation or Acute Anxiety Magnesium Hydroxide (Magnesium Hydroxide 2,400 Mg/10 Ml Cup) 2,400 mg PO DAILY PRN PRN Reason: Constipation Melatonin (Melatonin 5 Mg Tablet) 5 mg PO [facility] Last Admin: 03/15/21 20:12 Dose: 5 mg Documented by: Methadone HCl (Methadone 10 Mg Tab) 80 mg PO DAILY [facility] Last Admin: 03/16/21 08:48 Dose: 80 mg Documented by: Methadone HCl (Methadone 5 Mg Tab) 5 mg PO DAILY [facility] Last Admin: 03/16/21 08:48 Dose: 5 mg Documented by: Multivitamins (Multivitamins, Thera 1 Each Tab) 1 each PO DAILY [facility] Last Admin: 03/16/21 08:49 Dose: 1 each Documented by: Nicotine (Nicotine 14mg/24hr Patch) 1 patch TRANSDERM DAILY [facility] Last Admin: 03/16/21 08:48 Dose: 1 patch Documented by: Ondansetron HCl (Ondansetron Odt 4 Mg Tab) 4 mg PO Q8HR PRN PRN Reason: Nausea Last Admin: 03/15/21 11:12 Dose: 4 mg Documented by: Quetiapine Fumarate (Quetiapine 50 Mg Tab) 50 mg PO [facility] Sertraline HCl (Sertraline 100 Mg Tab) 100 mg PO DAILY [facility] Last Admin: 03/16/21 08:49 Dose: 100 mg Documented by: Past medical history to include: Anxiety depression Social history: 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 Smokes about half a pack to three-quarter packs a day for close to 25 years. Patient did heroin and opiate abuse and has been on methadone to the [place] for last 3 years. Family history: Reviewed, noncontributory to presentation Physical examination: VITAL SIGNS: 98.2, 68, 18, 103/57, 97% room air GENERAL: Sitting up in bed depressed appearing EYES: Pupils equal. Conjunctiva normal. HEENT: External appearance of nose and ears normal, oral cavity grossly normal. NECK: JVD not raised; masses not palpable. HEART: First and second heart sounds are normal; no edema. LUNGS: Respiratory rate normal; clear to auscultation. ABDOMEN: Soft, nontender, liver spleen not palpable, no masses palpable. PSYCH: Alert and oriented x3; mood and affect depressed NEUROLOGICAL: Fine tremors DERMATOLOGICAL: Patient has a circulararea off induration with surrounding redness ion the left anterior thigh. INVESTIGATIONS, reviewed in the clinical context: WBC 8.9 hemoglobin 15.3 potassium 4.5 crit 0.63 TSH 1.9 Urine drug screen: Positive for methadone, benzodiazepine Assessment and plan: -Familial tremor. This does not interfere with patient's activities. May need medications down the road but not at this point. This was discussed with the patient -Chronic nicotine dependence, cigarette smoker Counseled. Nicotine patch -Insomnia secondary to depression Seroquel, melatonin Zoloft, that should help -Anorexia due to depression Hopefully patient should better with Zoloft -Hypogeusia This could be possibly contribution from smoking -Possible insect bite with secondary cellulitis on the thigh On Keflex -Major depressive disorder, recurrent severe without psychotic features. Anxiety disorder unspecified Zoloft 100 mg. Seroquel 50 mg daily at bedtime. Amiodarone discontinued Care was discussed with the patient. Continue current medication treatment plan... Thank you Dr. Nance
[2021-03-16] MEDS ORDERED: QUEtiapine 50 MG TAB PO SCH (21:00)
[2021-03-16] MEDS: MELATONIN 5 MG TABLET PO SCH (21:03)
[2021-03-17] MEDS: SERTRALINE 100 MG TAB PO SCH (08:35)
[2021-03-17] MEDS: MULTIVITAMINS, THERA 1 EACH TAB PO SCH (08:35)
[2021-03-17] MEDS: CEPHALEXIN 250 MG CAP PO SCH ×4 (08:35→21:18)
[2021-03-17] MEDS: NICOTINE 14MG/24HR PATCH TRANSDERM SCH (08:35)
[2021-03-17] MEDS: ASCORBIC ACID 500 MG TAB PO SCH (08:35)
[2021-03-17] MEDS: METHADONE 10 MG TAB PO SCH (08:37)
[2021-03-17] MEDS: METHADONE 5 MG TAB PO SCH (08:38)
[2021-03-17] MEDS: ACETAMINOPHEN TAB 325 MG TAB PO PRN (10:21)
--- NOTE | 2021-03-17 10:25 | P.PN ---
Progress Note - Text Progress Note Date: 03/17/21 Interval History: Patient was seen wandering the hallways and was directable and agreeable to marli caldwell with real estate underwriter in the office. Patient continues to have a constricted affect and appears to be somewhat depressed. She claims that her mood has been gradually improving and claims that it is a "4 out of 10" and also states the same about her anxiety that it has mildly improved since yesterday. She claims that she has been speaking with her /cassanc who has been "more supportive lately". Patient appeared to have mild improvement in her hygiene and grooming today and states that she has been showering every night. she was not tearful during the interview. She was fairly directable and appropriate during the conversation. She claims that she is going to groups and trying to work on her coping skills. She claims that she had mild improvement in her sleep last night and was requesting to have her Seroquel increased for tonight. At this time patient denies any homical ideations, intent or plan. She is denying any suicidal thoughts today. Patient denies any auditory, visual hallucinations and denies any paranoia or delusions. Patient denies any side effects from the medications and has been compliant with meds. Mental Status Exam: General Appearance: Patient appears to be stated age is alert, more cooperative today. Attempts to cooperate. Patient appears to have improving hygiene and grooming. Behavior: Patient is seated without any agitated behavior. Attempts to c ooperate. Speech: Patient's speech is fluent and nonpressured. Soft tone Mood/Affect: Patient reports their mood is depressed, improving mildly, affect is congruent and constricted. Suicidality/Homicidality: Patient denies having any homicidal ideation intent or plan. She admits to ongoing suicidal thoughts however no intent or plan. Perceptions: Patient denies any visual hallucinations and denies any auditory hallucinations Though content/process: There is no evidence of any delusional thought content and thought process is linear and goal-directed. [place] Memory and concentration: AOX3, grossly intact for the purposes of this session. Judgment and insight: Improving Assessment Major depressive disorder, recurrent, severe without psychotic features Anxiety disorder unspecified Opioid dependence, currently on agonist therapy Nicotine dependence Plan: -Patient continues to meet criteria for inpatient psychiatric admission for symptom stabilization and safety. Patient has signed adult voluntary form and medication consent and was placed in patient's chart. -Medications: Continue with methadone at home dose 85 mg per day. increase Zoloft to 150 mg daily for mood/anxiety. increase Seroquel 100 mg daily at bedtime for insomnia/mood adjunct. melatonin 5 mg daily at bedtime for sleep. -When necessary Ativan and Haldol for agitation/aggression. -NRT - nicotine patch -SW on board for discharge planning. Encouraged the patient to participate in milieu. Likely discharge back home Saturday-Saturday if patient does well over the weekend.
[2021-03-17] MEDS: MELATONIN 5 MG TABLET PO SCH (20:36)
[2021-03-17] MEDS: QUEtiapine 100 MG TAB PO SCH (20:36)
[2021-03-18] MEDS: ACETAMINOPHEN TAB 325 MG TAB PO PRN ×2 (07:23→20:58)
[2021-03-18] MEDS: ASCORBIC ACID 500 MG TAB PO SCH (08:27)
[2021-03-18] MEDS: NICOTINE 14MG/24HR PATCH TRANSDERM SCH (08:27)
[2021-03-18] MEDS: SERTRALINE 50 MG TAB PO SCH (08:28)
[2021-03-18] MEDS: METHADONE 10 MG TAB PO SCH (08:30)
[2021-03-18] MEDS: METHADONE 5 MG TAB PO SCH (08:30)
[2021-03-18] MEDS: CEPHALEXIN 250 MG CAP PO SCH ×4 (08:31→20:57)
[2021-03-18] MEDS: MULTIVITAMINS, THERA 1 EACH TAB PO SCH (08:32)
[2021-03-18] MEDS ORDERED: HYDROCORTISONE 1% CREAM 30 GM TUBE TOPICAL PRN (14:09)
--- NOTE | 2021-03-18 16:18 | P.PN ---
Progress Note - Text Progress Note Date: 03/18/21 - Chief Complaint Depressed Consultation: This is a pleasant 35-year-old patient, presented to the ER. Patient been rather depressed and was started having suicidal ideations. And decided to come to the ER. Patient does take methadone because of prior history of hemorrhoid use. Has not done so for last 3 years. Patient is a cigarette smoker. Patient been having poor sleep. Decreased appetite. Does not know she lost the weight. Feels a bit rundown and tired. Patient's had tremor from a young age. Does not interfere with her activity. Denies any fever or chills. No respiratory symptoms. Patient also developed insect bite on the left thigh. Some area of redness around the same. March 16: Patient is sleeping bit better. Oral intake is improving. Still depressed. March 18: Patient complaining some itching of the insect bite on the left thigh. Oriented Keflex. Patient is getting tight pants that it started to not use initially. Otherwise the redness is better. Review of systems: Was done for constitutional, cardiovascular, GI, pulmonary. Psychiatry relevant finding as above Active Medications Acetaminophen (Acetaminophen Tab 325 Mg Tab) 650 mg PO Q4HR PRN PRN Reason: Pain/Discomfort Last Admin: 03/18/21 07:23 Dose: 650 mg Documented by: Al Hydroxide/Mg Hydroxide (Mag Hydrox/Al Hydrox/Simeth 30 Ml Cup) 30 ml PO Q4HR PRN PRN Reason: GI Upset Ascorbic Acid (Ascorbic Acid 500 Mg Tab) 500 mg PO DAILY [facility] Last Admin: 03/18/21 08:27 Dose: 500 mg Documented by: Cephalexin (Cephalexin 250 Mg Cap) 250 mg PO QID [facility] Stop: 03/19/21 13:01 Last Admin: 03/18/21 13:06 Dose: 250 mg Documented by: Hydrocortisone (Hydrocortisone 1% Cream 30 Gm Tube) 1 applic TOPICAL TID PRN; Protocol PRN Reason: Skin Irritation Lorazepam (Lorazepam 1 Mg Tab) 1 mg PO TID PRN PRN Reason: Anxiety, Agitation Last Admin: 03/13/21 23:49 Dose: 1 mg Documented by: Lorazepam (Lorazepam 2 Mg/Ml Inj) 1 mg IM TID PRN PRN Reason: Agitation or Acute Anxiety Magnesium Hydroxide (Magnesium Hydroxide 2,400 Mg/10 Ml Cup) 2,400 mg PO DAILY PRN PRN Reason: Constipation Melatonin (Melatonin 5 Mg Tablet) 5 mg PO [facility] Last Admin: 03/17/21 20:36 Dose: 5 mg Documented by: Methadone HCl (Methadone 10 Mg Tab) 80 mg PO DAILY [facility] Last Admin: 03/18/21 08:30 Dose: 80 mg Documented by: Methadone HCl (Methadone 5 Mg Tab) 5 mg PO DAILY [facility] Last Admin: 03/18/21 08:30 Dose: 5 mg Documented by: Multivitamins (Multivitamins, Thera 1 Each Tab) 1 each PO DAILY [facility] Last Admin: 03/18/21 08:32 Dose: 1 each Documented by: Nicotine (Nicotine 14mg/24hr Patch) 1 patch TRANSDERM DAILY [facility] Last Admin: 03/18/21 08:27 Dose: 1 patch Documented by: Ondansetron HCl (Ondansetron Odt 4 Mg Tab) 4 mg PO Q8HR PRN PRN Reason: Nausea Last Admin: 03/15/21 11:12 Dose: 4 mg Documented by: Quetiapine Fumarate (Quetiapine 100 Mg Tab) 100 mg PO [facility] Last Admin: 03/17/21 20:36 Dose: 100 mg Documented by: Sertraline HCl (Sertraline 50 Mg Tab) 150 mg PO DAILY [facility] Last Admin: 03/18/21 08:28 Dose: 150 mg Documented by: Past medical history to include: Anxiety depression Social history: 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 Smokes about half a pack to three-quarter packs a day for close to 25 years. Patient did heroin and opiate abuse and has been on methadone to the [place] for last 3 years. Family history: Reviewed, noncontributory to presentation Physical examination: VITAL SIGNS: 99, 16, 20, 99/56, GENERAL: Sitting up in bed depressed appearing EYES: Pupils equal. Conjunctiva normal. HEENT: External appearance of nose and ears normal, oral cavity grossly normal. NECK: JVD not raised; masses not palpable. HEART: First and second heart sounds are normal; no edema. LUNGS: Respiratory rate normal; clear to auscultation. ABDOMEN: Soft, nontender, liver spleen not palpable, no masses palpable. PSYCH: Alert and oriented x3; mood and affect depressed NEUROLOGICAL: Fine tremors DERMATOLOGICAL: Patient has a circulararea off induration with surrounding redness ion the left anterior thigh. INVESTIGATIONS, reviewed in the clinical context: WBC 8.9 hemoglobin 15.3 potassium 4.5 crit 0.63 TSH 1.9 Urine drug screen: Positive for methadone, benzodiazepine Assessment and plan: -Familial tremor. This does not interfere with patient's activities. May need medications down the road but not at this point. This was discussed with the patient -Chronic nicotine dependence, cigarette smoker Counseled. Nicotine patch -Insomnia secondary to depression Seroquel, melatonin Zoloft, that should help -Anorexia due to depression Hopefully patient should better with Zoloft -Hypogeusia This could be possibly contribution from smoking -Possible insect bite with secondary cellulitis on the thigh On Keflex. Add topical hydrocortisone cream. -Major depressive disorder, recurrent severe without psychotic features. Anxiety disorder unspecified Zoloft 100 mg. Seroquel 50 mg daily at bedtime. Amiodarone discontinued Continue current medication. Topical hydrocortisone cream . Patient told to use the hospital gown, as opposed to wearing tight pants Thank you Dr. Nance
[2021-03-18] MEDS: HYDROCORTISONE 1% CREAM 30 GM TUBE TOPICAL SCH ×2 (17:27→20:57)
[2021-03-18] MEDS: QUEtiapine 100 MG TAB PO SCH (20:57)
[2021-03-18] MEDS: MELATONIN 5 MG TABLET PO SCH (20:57)
--- NOTE | 2021-03-18 23:17 | P.PN ---
Progress Note - Text Progress Note Date: 03/18/21 Subjective: Patient was seen today as a cross coverage for Dr. Nance. The patient was evaluated, chart reviewed, case discussed with the treatment team. Patient reports better sleep last night, and appetite was reported as " fine". Patient has been going to groups and other unit activities. The patient is compliant with her medications and denies any adverse reactions. Patient reports her depression is relatively better but still having moments of hopelessness, and he continued to have high anxiety. Denies any suicidal or homicidal ideation. Denies any hallucinations or paranoid ideation. No manic symptoms reported or noticed. Patient reports her anxiety is related to her children and worry about her house. Objective: Vitals has been reviewed. Mental status examination; Appearance: The patient appears stated age, adequately groomed and dressed, no specific features. Gait/posture: Normal gait, Normal arm swinging: No abnormal movements. Attitude and behavior: engaged, cooperative, eye contact. Motor activity: Normal psychomotor activity Speech: Normal rate, tone. Mood: Anxious Affect: Constricted Thought form: goal-directed, linear, coherent. Thought content: Non-delusional, denies suicidal thoughts, denies homicidal thoughts, denies intentions or plans. Perception: Denies any auditory or visual hallucinations Attention: No impairment. Orientation: Patient patient was fully oriented to time place person and situation. Insight: Patient has fair insight about her psychiatric disorder. Judgment: Patient has fair judgment about her psychiatric treatment. Assessment: Major depressive disorder, recurrent, severe without psychotic features Anxiety disorder unspecified Opioid dependence, currently on agonist therapy Nicotine dependence Plan: Continue inpatient level of care due to need for further monitoring and stabil ization Precautions: Continue 15 minutes check for safety. Consider medical consultation if any acute medical issues arise. Provide the patient individual, group therapy, substance use disorder counseling to give better insight and learn coping skills. Medications: Continue Zoloft for depression and anxiety, and Seroquel for mood stabilization. Continue melatonin at bedtime to help with insomnia. Continue opioid treatment with 85 mg of methadone for opioid craving. NRT Continue as needed medications for psychiatric emergencies including psychosis, agitation and anxiety. Continue non-psychiatric medications for medical conditions as recommended by the medical team. Discharge patient to OUTPATIENT services upon a stabilization
[2021-03-19] MEDS: NICOTINE 14MG/24HR PATCH TRANSDERM SCH (08:23)
[2021-03-19] MEDS: CEPHALEXIN 250 MG CAP PO SCH ×2 (08:23→12:11)
[2021-03-19] MEDS: ASCORBIC ACID 500 MG TAB PO SCH (08:23)
[2021-03-19] MEDS: HYDROCORTISONE 1% CREAM 30 GM TUBE TOPICAL SCH ×3 (08:23→21:25)
[2021-03-19] MEDS: MULTIVITAMINS, THERA 1 EACH TAB PO SCH (08:23)
[2021-03-19] MEDS: SERTRALINE 50 MG TAB PO SCH (08:23)
[2021-03-19] MEDS: METHADONE 5 MG TAB PO SCH (08:25)
[2021-03-19] MEDS: METHADONE 10 MG TAB PO SCH (08:25)
[2021-03-19] MEDS: ACETAMINOPHEN TAB 325 MG TAB PO PRN (12:12)
[2021-03-19] MEDS ORDERED: QUEtiapine 50 MG TAB PO SCH (21:00)
[2021-03-19] MEDS ORDERED: MELATONIN 5 MG TABLET PO SCH (21:00)
--- NOTE | 2021-03-19 23:36 | P.PN ---
Progress Note - Text Progress Note Date: 03/19/21 Subjective: Patient was seen today as a cross coverage for Dr. Nance. The patient was evaluated, chart reviewed, case discussed with the treatment team. Patient reports had very interrupted sleep last night and she feels her depression is worse today and denies any suicidal ideation. Reports feeling hopeless since this morning. She notes this increased anxiety, but denies any severe mood swings, anger, or agitation. She presents with flat affect. Denies any appetite problems, and she continues to attend selected groups. Patient takes her psychiatric medications and he denies any side effects. Denies any manic or psychotic symptoms. Objective: Vitals has been reviewed. Mental status examination; Appearance: The patient appears stated age, adequately groomed and dressed, no specific features. Gait/posture: Normal gait, Normal arm swinging: No abnormal movements. Attitude and behavior: engaged, cooperative, eye contact. Motor activity: Normal psychomotor activity Speech: Normal rate, tone. Mood: Anxious and depressed Affect: Constricted Thought form: goal-directed, linear, coherent. Thought content: Non-delusional, denies suicidal thoughts, denies homicidal thoughts, denies intentions or plans. Perception: Denies any auditory or visual hallucinations Attention: No impairment. Orientation: Patient patient was fully oriented to time place person and situation. Insight: Patient has fair insight about her psychiatric disorder. Judgment: Patient has fair judgment about her psychiatric treatment. Assessment: Major depressive disorder, recurrent, severe without psychotic features Anxiety disorder unspecified Opioid dependence, currently on agonist therapy Nicotine dependence Plan: Continue inpatient level of care due to need for further monitoring and stabilization Precautions: Continue 15 minutes check for safety. Consider medical consultation if any acute medical issues arise. Provide the patient individual, group therapy, substance use disorder counseling to give better insight and learn coping skills. Medications: Continue Zoloft for depression and anxiety. Increase Seroquel to 150 mg to help was a mood and insomnia. Increase melatonin to 10 mg at bedtime to help with insomnia. Continue opioid treatment with 85 mg of methadone for opioid craving. NRT Continue as needed medications for psychiatric emergencies including psychosis, agitation and anxiety. Continue non-psychiatric medications for medical conditions as recommended by the medical team. Discharge patient to OUTPATIENT services upon a stabilization
[2021-03-20 07:15] VITALS: BP 97/53; PULSE 71; RESP 14; TEMP 98.3
[2021-03-20] MEDS: NICOTINE 14MG/24HR PATCH TRANSDERM SCH (08:37)
[2021-03-20] MEDS: HYDROCORTISONE 1% CREAM 30 GM TUBE TOPICAL SCH (08:37)
[2021-03-20] MEDS: ASCORBIC ACID 500 MG TAB PO SCH (08:37)
[2021-03-20] MEDS: SERTRALINE 50 MG TAB PO SCH (08:38)
[2021-03-20] MEDS: METHADONE 10 MG TAB PO SCH (08:38)
[2021-03-20] MEDS: MULTIVITAMINS, THERA 1 EACH TAB PO SCH (08:38)
[2021-03-20] MEDS: METHADONE 5 MG TAB PO SCH (08:38)
--- NOTE | 2021-03-20 10:21 | P.DS ---
Providers Date of admission: 03/13/21 21:51 Expected date of discharge: 03/20/21 Attending physician: Zeeshan Nance MD Consults: 03/13/21 22:13 Consult Physician Routine Consulting Provider: Chris Hope Consult Reason/Comments: H&P and medical Do you want consulting provider notified?: Yes Primary care physician: Marco Castro - Discharge Diagnosis(es) (1) Major depressive disorder, recurrent severe without psychotic features Current Visit: Yes Status: Acute Priority: High (2) Anxiety disorder, unspecified Current Visit: Yes Status: Acute Priority: Medium (3) Opioid dependence on agonist therapy Current Visit: Yes Status: Acute Priority: Medium (4) Nicotine dependence Current Visit: Yes Status: Acute Priority: Low Hospital Course: Admission HPI: Admission note was completed by medical underwriter "Patient is a 35-year-old female with a history of opiate use disorder currently on methadone, has 2 kids, wily, lives in a house, works cleaning houses. Patient presented to the hospital yesterday with increasing depression for the past 3 weeks according to ER report. Patient was also endorsing in the ER that she was suicidal with a plan. She is also expressing nausea and vomiting. Patient is currently on methadone and receiving her doses from [facility]. Her UDS was positive for methadone and benzodiazepines. Patient was interviewed today in the office and appeared to be disheveled in appearance however it was also upset and tearful. She had a soft tone of voice. She states that "not much of anything is going on at the problem". She claims that she has been depressed for several months now and denies any triggers or any recent stressors. 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 She claims that she does have anxiety during the day. She claims that she still feeling suicidal however has no plan or intent at this time. She claims that at home she was having thoughts of wanting to overdose however stopped due to her kids. She claims that she has been sober from using opiates for the past 8 years. She claims that she was previously on antidepressant medications and seeing a psychiatrist however her family told her to stop taking the medications and she's been off them for over a year now. She can that her sleep and appetite are poor. Patient denies any homicidal ideations intent or plan. At this time patient denies any auditory or visual hallucinations. Patient denies any flight of ideas racing thoughts and increased in goal directed behavior. Patient admits to using cigarettes daily. She claims that she is to use opiates/heroin several years ago however has been sober for 8 years now and taking methadone." Hospital course: Upon admission to the unit patient was initially depressed tearful and anxious. Patient was however directable and agreeable to commence treatment and signed adult voluntary form. Patient got along well with other patients on the unit and followed unit protocol. Patient was compliant with the medications and denied any side effects throughout hospital course. Patient was started on Zoloft and titrated up to a dose of 150 mg daily for mood/anxiety. Patient was also started on Seroquel for mood adjunct/insomnia and titrated up to dose of 150 mg daily at bedtime. Patient was continued on with methadone 85 mg per day as this was her regular home dose. Patient was also started on melatonin and titrated up to dose of 10 mg daily at bedtime for sleep. Patient spoke of her stressors and engaged in therapy both group and individual. Patient was also seen by medical team for history and physical exam. Throughout the course of the hospitalization patient gradually improved with regards to mood, anxiety, suicidal thoughts, sleep and became more future oriented with improved insight and judgment. On the day of discharge patient denied any suicidal or homicidal ideations intent or plan denied any auditory or visual hallucinations. Patient endorsed wanting to live for her health and her family/kids. The patient denied any access to guns or weapons. Patient denied any paranoia and did not endorse any delusions. Patient does have a significant history of substance abuse and was counseled on abstaining from all substances including alcohol and marijuana. Patient will continue following up at [facility] for her methadone treatment and opiate use disorder. Patient was also counseled on the medications and need for regular compliance and was encouraged to follow-up with their outpatient appointment for mental health and also for primary care. Prior to discharge a family meeting will be arranged by social services to answer any questions and e nsure safety upon discharge. Mental status exam: General Appearance: Patient appears to be stated age is alert, pleasant, and cooperative. Patient is in no acute distress and has improved hygiene and grooming Behavior: Patient is calmly seated without any agitated behavior. Speech: Patient's speech is fluent and nonpressured. Mood/Affect: Patient reports their mood is "better", affect is congruent and euthymic. Suicidality/Homicidality: Patient denies having any suicidal or homicidal ideation intent or plan. Perceptions: Patient denies any auditory or visual hallucinations. Though content/process: There is no evidence of any delusional thought content and thought process is linear and goal-directed. more future oriented Memory and concentration: AOX3, grossly intact for the purposes of this session. Can spell "WORLD" backwards correctly. Judgment and insight: improved with guarded prognosis Impression: Major depressive disorder, recurrent, severe without psychotic features Anxiety disorder unspecified Opiate dependence currently a negative therapy Nicotine dependence Plan: -Continue with discharge today as patient has improved and stabilized psychiatrically and is not currently an imminent threat to herself and/or others. -Continue medications: Continue on current dose of methadone and will be following up with [facility]. Seroquel 150 mg daily at bedtime for in somnia/mood adjunct, Zoloft 150 mg daily for mood/anxiety, melatonin 10 mg daily at bedtime for sleep. -Patient was counseled on the need for medication compliance and appropriate follow-up at mental health and also primary care for medical issues. Patient verbalized understanding and agreed. -Social work to arrange for and conduct family meeting to ensure safety upon discharge and answer any questions/concerns. Social work also to arrange for patients follow up appointments for psychiatric care along with follow up with primary care provider. -Patient counseled on abstaining from recreational drugs and marijuana and alcohol. Was informed/educated on the adverse effects on their physical and mental health. Patient verbally agreed and understood. -Patient was instructed to return to the hospital or seek immediate medical care if their psychiatric or medical symptoms do worsen or reoccur. Allergies Allergy/AdvReac Type Severity Reaction Status Date / Time No Known Allergies Allergy Verified 03/13/21 19:47 Laboratory Results WBC 8.9 k/uL (3.8-10.6) 03/15/21 06:34 RBC 4.89 m/uL (3.80-5.40) 03/15/21 06:34 Hgb 15.3 gm/dL (11.4-16.0) 03/15/21 06:34 Hct 45.5 % (34.0-46.0) 03/15/21 06:34 MCV 93.0 fL (80.0-100.0) 03/15/21 06:34 MCH 31.2 pg (25.0-35.0) 03/15/21 06:34 MCHC 33.5 g/dL (31.0-37.0) 03/15/21 06:34 RDW 12.3 % (11.5-15.5) 03/15/21 06:34 Plt Count 314 k/uL (150-450) 03/15/21 06:34 MPV 7.0 03/15/21 06:34 Neutrophils % 45 % 03/15/21 06:34 Lymphocytes % 44 % 03/15/21 06:34 Monocytes % 6 % 03/15/21 06:34 Eosinophils % 3 % 03/15/21 06:34 Basophils % 1 % 03/15/21 06:34 Neutrophils # 4.0 k/uL (1.3-7.7) 03/15/21 06:34 Lymphocytes # 3.9 k/uL (1.0-4.8) 03/15/21 06:34 Monocytes # 0.5 k/uL (0-1.0) 03/15/21 06:34 Eosinophils # 0.2 k/uL (0-0.7) 03/15/21 06:34 Basophils # 0.1 k/uL (0-0.2) 03/15/21 06:34 Sodium 142 mmol/L (137-145) 03/15/21 06:37 Potassium 4.5 mmol/L (3.5-5.1) 03/15/21 06:37 Chloride 107 mmol/L (98-107) 03/15/21 06:37 Carbon Dioxide 24 mmol/L (22-30) 03/15/21 06:37 Anion Gap 11 mmol/L 03/15/21 06:37 BUN 12 mg/dL (7-17) 03/15/21 06:37 Creatinine 0.63 mg/dL (0.52-1.04) 03/15/21 06:37 Est GFR (CKD-EPI)AfAm >90 (>60 ml/min/1.73 sqM) 03/15/21 06:37 Est GFR (CKD-EPI)NonAf >90 (>60 ml/min/1.73 sqM) 03/15/21 06:37 Glucose 97 mg/dL (74-99) 03/15/21 06:[address] Glu mg/dL 105 03/15/21 06:34 Hemoglobin A1c 5.3 % (4.0-6.0) 03/15/21 06:34 Calcium 9.9 mg/dL (8.4-10.2) 03/15/21 06:37 Total Bilirubin 0.5 mg/dL (0.2-1.3) 03/15/21 06:37 AST 53 U/L (14-36) H 03/15/21 06:37 ALT 44 U/L (4-34) H 03/15/21 06:37 Alkaline Phosphatase 70 U/L (38-126) 03/15/21 06:37 Total Protein 7.8 g/dL (6.3-8.2) 03/15/21 06:37 Albumin 4.5 g/dL (3.5-5.0) 03/15/21 06:37 Triglycerides 82.0 mg/dL (0.0-149.0) 03/15/21 06:37 Cholesterol 168 mg/dL (0-200) 03/15/21 06:37 LDL Cholesterol, Calc 115.6 mg/dL (0.0-131.0) 03/15/21 06:37 VLDL Cholesterol, Calc 16.40 mg/dL (5.00-40.00) 03/15/21 06:37 HDL Cholesterol 36.0 mg/dL (40.0-60.0) L 03/15/21 06:37 Cholesterol/HDL Ratio 4.67 03/15/21 06:37 TSH 1.950 mIU/L (0.465-4.680) 03/15/21 06:37 Urine Opiates Screen Not Detected (NotDetected) 03/13/21 16:31 Ur Oxycodone Screen Not Detected (NotDetected) 03/13/21 16:31 Urine Methadone Screen Detected (NotDetected) H 03/13/21 16:31 Ur Propoxyphene Screen Not Detected (NotDetected) 03/13/21 16:31 Ur Barbiturates Screen Not Detected (NotDetected) 03/13/21 16:31 U Tricyclic Antidepress Not Detected (NotDetected) 03/13/21 16:31 Ur Phencyclidine Scrn Not Detected (NotDetected) 03/13/21 16:31 Ur Amphetamines Screen Not Detected (NotDetected) 03/13/21 16:31 U Methamphetamines Scrn Not Detected (NotDetected) 03/13/21 16:31 U Benzodiazepines Scrn Detected (NotDetected) H 03/13/21 16:31 Urine Cocaine Screen Not Detected (NotDetected) 03/13/21 16:31 U Marijuana (THC) Screen Not Detected (NotDetected) 03/13/21 16:31 Vital Signs Temp 98.3 F 03/20/21 07:14 Pulse 71 03/20/21 07:14 Resp 14 03/20/21 07:14 BP 97/53 03/20/21 07:14 Pulse Ox 97 03/13/21 22:00 Intake & Output 03/19/21 03/20/21 03/20/21 18:59 06:59 18:59 Weight 88.5 kg Patient Condition at Discharge: Stable Plan - Discharge Summary Discharge Rx Participant: No New Discharge Prescriptions: New Nicotine 14Mg/24Hr Patch [Habitrol] 1 patch TRANSDERM DAILY 14 Days patch Melatonin 10 mg PO HS 30 Days tablet Hydrocortisone Cream [Hydrocortisone 1% Cream] 1 applic TOPICAL TID applic QUEtiapine [SEROquel] 150 mg PO HS 30 Days tab Acetaminophen Tab [Tylenol] 650 mg PO Q4HR PRN tab PRN Reason: Pain/Discomfort Sertraline [Zoloft] 150 mg PO DAILY 30 Days tab Continue Methadone HCl [Methadone Intensol] 85 mg PO DAILY Ibuprofen [Motrin Ib] 400 - 800 mg PO Q4-6H PRN PRN Reason: Migraine Headache Multivitamins, Thera [Multivitamin (formulary)] 1 tab PO DAILY Ascorbic Acid [Vitamin C] 500 mg PO DAILY Discontinued Ondansetron Odt [Zofran Odt] 4 mg PO Q8HR PRN #10 tab PRN Reason: Nausea Discharge Medication List Methadone HCl [Methadone Intensol] 85 mg PO DAILY 10/10/17 [History] Ascorbic Acid [Vitamin C] 500 mg PO DAILY 03/13/21 [History] Ibuprofen [Motrin Ib] 400 - 800 mg PO Q4-6H PRN 03/13/21 [History] Multivitamins, Thera [Multivitamin (formulary)] 1 tab PO DAILY 03/13/21 [History] Acetaminophen Tab [Tylenol] 650 mg PO Q4HR PRN tab 03/20/21 [Rx] Hydrocortisone Cream [Hydrocortisone 1% Cream] 1 applic TOPICAL TID applic 03/20/21 [Rx] Melatonin 10 mg PO HS 30 Days tablet 03/20/21 [Rx] Nicotine 14Mg/24Hr Patch [Habitrol] 1 patch TRANSDERM DAILY 14 Days patch 03/20/21 [Rx] QUEtiapine [SEROquel] 150 mg PO HS 30 Days tab 03/20/21 [Rx] Sertraline [Zoloft] 150 mg PO DAILY 30 Days tab 03/20/21 [Rx] Follow up Appointment(s)/Referral(s): Marco Castro DO [Primary Care Provider] - 1-2 days Activity/Diet/Wound Care/Special Instructions: Activity and diet as tolerated. Avoid the use of street drugs and alcohol. Take all medications as prescribed. When you are in need of refills on your medications please contact your medical provider and/or outpatient psychiatrist to have this done. Please go to scheduled outpatient appointment for aftercare treatment. If symptoms return or become worse, call the crisis line at and/or go to the nearest emergency room for evaluation. Discharge Disposition: HOME SELF-CARE
== END 2021-03-20 13:06 | disposition home or self-care (01) | DRG 885 ==
LOC: EC 15:50 → 3MHU 21:51
PROVIDERS: ADMIT Psychiatry & Neurology Psychiatry; ATTEND Psychiatry & Neurology Psychiatry
DX: F33.2 Major depressive disorder, recurrent severe without psychotic features (principal); F11.20 Opioid dependence, uncomplicated; R45.851 Suicidal ideations; F15.20 Other stimulant dependence, uncomplicated; F13.20 Sedative, hypnotic or anxiolytic dependence, uncomplicated; F17.210 Nicotine dependence, cigarettes, uncomplicated; F41.9 Anxiety disorder, unspecified; S70.362A Insect bite (nonvenomous), left thigh, initial encounter; F51.05 Insomnia due to other mental disorder; R11.2 Nausea with vomiting, unspecified; G25.0 Essential tremor; Z79.899 Other long term (current) drug therapy; W57.XXXA Bitten or stung by nonvenomous insect and other nonvenomous arthropods, initial encounter; Z71.51 Drug abuse counseling and surveillance of drug abuser
CPT/HCPCS: 80053; 80061; 80306; 82075; 83036; 84443; 85025; 93005

== ENCOUNTER 2021-05-24 18:48 | Emergency (ER) | payer OTHER ==
[2021-05-24 20:02] VITALS: BP 135/77; RESP 20; TEMP 99
[2021-05-24] MEDS ORDERED: KETOROLAC 15 MG/ML 1 ML VIAL IVP STA (22:00)
[2021-05-24] MEDS ORDERED: SODIUM CHLORIDE 0.9% 1,000 ML IV STA (22:00)
[2021-05-24] MEDS ORDERED: diphenhydrAMINE 50 MG/ML 1 ML VIAL IVP STA (22:00)
[2021-05-24] MEDS ORDERED: METOCLOPRAMIDE 5 MG/ML 2 ML VIAL IVP STA (22:00)
--- NOTE | 2021-05-24 22:00 | XR ---
EXAMINATION TYPE: XR chest 2V DATE OF EXAM: 05/24/2021 COMPARISON: 06/09/2020 HISTORY: Short of breath TECHNIQUE: FINDINGS: Heart and mediastinum are normal. Lungs are clear. Diaphragm is normal. Bony thorax is norm al. IMPRESSION: Normal chest. No change.
[2021-05-24] MEDS ORDERED: ACETAMINOPHEN TAB 500 MG TAB PO STA (22:18)
--- NOTE | 2021-05-24 22:19 | ED ---
General Adult HPI - General Chief complaint: Upper Respiratory Infection Stated complaint: COVID+,SOB Time Seen by Provider: 05/24/21 21:46 Source: patient Mode of arrival: ambulatory Limitations: no limitations - History of Present Illness Initial comments: 36-year-old female presents to the emergency room for a chief complaint of headache. Patient reports that she was diagnosed with Reese virus about a week ago. States that she is still not feeling better. Patient states she is having nausea and headaches. She has a cough. States this is causing her to have panic attacks. Patient did have antibody infusion already. Patient is concerned that she has not yet improved. Denies shortness of breath. Denies chest pain.Patient has no other complaints at this time including shortness of breath, chest pain, abdominal pain, nausea or vomiting, headache, or visual changes. - Related Data Home Medications Medication Instructions Recorded Confirmed Methadone HCl [Methadone Intensol] 85 mg PO DAILY 10/10/17 03/14/21 Ascorbic Acid [Vitamin C] 500 mg PO DAILY 03/13/21 03/13/21 Ibuprofen [Motrin Ib] 400 - 800 mg PO Q4-6H PRN 03/13/21 03/13/21 Multivitamins, Thera [Multivitamin 1 tab PO DAILY 03/13/21 03/13/21 (formulary)] Previous Rx's Medication Instructions Recorded Acetaminophen Tab [Tylenol] 650 mg PO Q4HR PRN tab 03/20/21 Hydrocortisone Cream 1 applic TOPICAL TID applic 03/20/21 [Hydrocortisone 1% Cream] Melatonin 10 mg PO HS 30 Days tablet 03/20/21 Nicotine 14Mg/24Hr Patch [Habitrol] 1 patch TRANSDERM DAILY 14 Days 03/20/21 patch QUEtiapine [SEROquel] 150 mg PO HS 30 Days tab 03/20/21 Sertraline [Zoloft] 150 mg PO DAILY 30 Days tab 03/20/21 Allergies Allergy/AdvReac Type Severity Reaction Status Date / Time No Known Allergies Allergy Verified 05/24/21 19:59 Review of Systems ROS Statement: Those systems with pertinent positive or pertinent negative responses have been documented in the HPI. ROS Other: All systems not noted in ROS Statement are negative. Past Medical History Past Medical History: No Reported History Additional Past Medical History / Comment(s): migraine History of Any Multi-Drug Resistant Organisms: None Reported Past Surgical History: No Surgical Hx Reported Past Anesthesia/Blood Transfusion Reactions: No Reported Reaction Past Psychological History: Anxiety, Depression Smoking Status: Current every day smoker Past Alcohol Use History: None Reported Past Drug Use History: IV Drug Use - Past Family History Father Additional Family Medical History / Comment(s): Father is alive at age 54 with no major medical problems. Mother Additional Family Medical History / Comment(s): Mother is alive at age 51 with no major medical problems. Sister(s) Additional Family Medical History / Comment(s): Patient has one sister with mental health issues. Patient has 1 brother with no major medical problems. Patient is 2 children ages 10 and 11 with no major medical problems. General Exam Limitations: no limitations General appearance: alert, in no apparent distress Head exam: Present: atraumatic Eye exam: Present: normal appearance, PERRL, EOMI. Absent: scleral icterus, conjunctival injection ENT exam: Present: normal exam, mucous membranes moist Neck exam: Present: normal inspection, full ROM. Absent: tenderness Respiratory exam: Present: normal lung sounds bilaterally. Absent: respiratory distress, wheezes Cardiovascular Exam: Present: regular rate, normal rhythm, normal heart sounds GI/Abdominal exam: Present: soft, normal bowel sounds. Absent: distended, tenderness Neurological exam: Present: alert Course Vital Signs 05/24/21 05/24/21 19:59 23:15 Temperature 99.0 F Pulse Rate 87 92 Respiratory 20 Rate Blood Pressure 135/77 O2 Sat by Pulse 94 L 98 Oximetry Medical Decision Making - Medical Decision Making Vitals are stable. Patient is well-appearing. Patient is anxious and crying. Oxygenation is 98% when I'm in the room. CBC CMP unremarkable. Chest x-ray is unremarkable. Patient was given migraine cocktail and had resolution of symptoms. At this time patient can be discharged home. He'll return for any worsening symptoms. - Lab Data Result diagrams: 05/24/21 22:09 05/24/21 22:09 Lab Results 05/24/21 05/24/21 Range/Units 22: 22:09 WBC 10.9 H (3.8-10.6) k/uL RBC 4.68 (3.80-5.40) m/uL Hgb 14.3 (11.4-16.0) gm/dL Hct 41.1 (34.0-46.0) % MCV 87.7 (80.0-100.0) fL MCH 30.6 (25.0-35.0) pg MCHC 34.9 (31.0-37.0) g/dL RDW 13.0 (11.5-15.5) % Plt Count 348 (150-450) k/uL MPV 7.2 Neutrophils % 78 % Lymphocytes % 16 % Monocytes % 4 % Eosinophils % 0 % Basophils % 0 % Neutrophils # 8.4 H (1.3-7.7) k/uL Lymphocytes # 1.8 (1.0-4.8) k/uL Monocytes # 0.4 (0-1.0) k/uL Eosinophils # 0.0 (0-0.7) k/uL Basophils # 0.0 (0-0.2) k/uL Sodium 140 (137-145) mmol/L Potassium 4.1 (3.5-5.1) mmol/L Chloride 105 (98-107) mmol/L Carbon Dioxide 22 (22-30) mmol/L Anion Gap 13 mmol/L BUN 14 (7-17) mg/dL Creatinine 0.56 (0.52-1.04) mg/dL Est GFR (CKD-EPI)AfAm >90 (>60 ml/min/1.73 sqM) Est GFR (CKD-EPI)NonAf >90 (>60 ml/min/1.73 sqM) Glucose 87 (74-99) mg/dL Calcium 9.7 (8.4-10.2) mg/dL Total Bilirubin 0.6 (0.2-1.3) mg/dL AST 29 (14-36) U/L ALT 22 (4-34) U/L Alkaline Phosphatase 96 (38-126) U/L Total Protein 8.9 H (6.3-8.2) g/dL Albumin 4.6 (3.5-5.0) g/dL Disposition Clinical Impression: COVID, Headache Disposition: HOME SELF-CARE Condition: Good Instructions (If sedation given, give patient instructions): Acute Headache (ED) Additional Instructions: Please take Motrin and Tylenol for pain. Please follow-up with primary care in 1-2 days. Return to the emergency room for any worsening symptoms. Is patient prescribed a controlled substance at d/c from ED?: No Referrals: Marco Castro DO [Primary Care Provider] - 1-2 days Time of Disposition: 23:59
[2021-05-24 23:17] VITALS: PULSE 92
[2021-05-24 23:20] LABS: Basophils % (A) 0 %; Eosinophils % (A) 0 %; HCT 41.1 % (34.0-46.0); HGB 14.3 gm/dL (11.4-16.0); Lymphocytes # (A) 1.8 k/uL (1.0-4.8); Lymphocytes % (A) 16 %; MCH 30.6 pg (25.0-35.0); MCHC 34.9 g/dL (31.0-37.0); MCV 87.7 fL (80.0-100.0); Mean Platelet Volume 7.2; Monocytes # (A) 0.4 k/uL (0-1.0); Monocytes % (A) 4 %; Neutrophils # (A) 8.4 k/uL (1.3-7.7); Neutrophils % (A) 78 %; Platelet Count 348 k/uL (150-450); RBC 4.68 m/uL (3.80-5.40); WBC 10.9 k/uL (3.8-10.6)
[2021-05-24 23:42] LABS: ALT 22 U/L (4-34); AST 29 U/L (14-36); African American GFR (CKD) >90 (>60 ml/min/1.73 sqM); Albumin 4.6 g/dL (3.5-5.0); Alkaline Phosphatase 96 U/L (38-126); Anion Gap 13 mmol/L; Blood Urea Nitrogen 14 mg/dL (7-17); Calcium 9.7 mg/dL (8.4-10.2); Carbon Dioxide 22 mmol/L (22-30); Chloride 105 mmol/L (98-107); Glucose 87 mg/dL (74-99); Non-African American GFR(CKD) >90 (>60 ml/min/1.73 sqM); Potassium 4.1 mmol/L (3.5-5.1); Sodium 140 mmol/L (137-145); Total Bilirubin 0.6 mg/dL (0.2-1.3); Total Protein 8.9 g/dL (6.3-8.2)
== END 2021-05-25 01:22 | disposition home or self-care (01) ==
LOC: EC 18:48
DX: U07.1 COVID-19 (principal); F32.9 Major depressive disorder, single episode, unspecified; F41.9 Anxiety disorder, unspecified; F17.200 Nicotine dependence, unspecified, uncomplicated; Z79.1 Long term (current) use of non-steroidal anti-inflammatories (NSAID); Z79.899 Other long term (current) drug therapy
CPT/HCPCS: 99284 ×2; 96374 ×2; 96375 ×3; 96361 ×2; 36415; 80053; 85025; 71046; J1200; J2765; J1885

== ENCOUNTER 2021-11-13 17:40 | Emergency (ER) | payer BC, OTHER ==
[2021-11-13 17:50] VITALS: RESP 20; TEMP 97.8
[2021-11-13 19:02] VITALS: BP 132/72
[2021-11-13 19:04] VITALS: PULSE 122
[2021-11-13] MEDS ORDERED: ONDANSETRON 4 MG/2 ML VIAL IVP STA (19:33)
--- NOTE | 2021-11-13 20:14 | CT ---
EXAMINATION TYPE: CT brain cspine wo con CT DLP: 1492.9 mGycm, Automated exposure control for dose reduction was used. DATE OF EXAM: 11/13/2021 7:58 PM COMPARISON: 11/16/2016. CLINICAL INDICATION:Female, 36 years old with history of headache. TECHNIQUE: Brain: Multiple axial CT images of the brain were obtained without IV contrast. Cspine: Axial CT images from the skull base to the inferior aspect of T2 we obtained without intraven ous contrast. Coronal and sagittal reformatted images were also reviewed. FINDINGS: Brain: Extra-axial spaces: No abnormal extra-axial fluid collections. Ventricular system: Within normal limits Cerebral parenchyma: No acute intraparenchymal hemorrhage or mass effect. The rangel-white junction is well differentiated. Cerebellum: Unremarkable. Mass effect: No evidence of midline shift. Intracranial vasculature: unremarkable Soft tissues: Normal. Calvarium/osseous structures: No depressed skull fracture. Paranasal sinuses and mastoid air cells: Clear. Visualized orbits: Orbital contents are intact. Cervical spine: Fracture: None. Osseous structures: Unremarkable Vertebral alignment: Within normal limits. Spinal canal/Neural Foramina: No evidence of significant spinal canal narrowing. No evidence for sign ificant neural foraminal stenosis. Neck soft tissues: Prevertebral soft tissues are within normal limits. Other: The airway is patent. The lung apices are clear. IMPRESSION: 1. No acute intracranial process. 2. No evidence of cervical spine fracture.
[2021-11-13] MEDS ORDERED: SODIUM CHLORIDE 0.9% 2,000 ML IV STA (20:30)
[2021-11-13] MEDS ORDERED: KETOROLAC 15 MG/ML 1 ML VIAL IVP STA (20:32)
[2021-11-13] MEDS ORDERED: METOCLOPRAMIDE 5 MG/ML 2 ML VIAL IVP STA (20:32)
[2021-11-13] MEDS ORDERED: DEXAMETHASONE SOD PHOSPHATE 10 MG/ML 1 ML VIAL IV STA (20:32)
--- NOTE | 2021-11-13 20:48 | ED ---
Headache HPI - General Chief Complaint: Headache Stated Complaint: Headache Time Seen by Provider: 11/13/21 19:26 Mode of arrival: wheelchair Limitations: no limitations - History of Present Illness Initial Comments: Patient is a 36-year-old female who presents to the emergency department with a chief complaint of headache. Patient states the headache came on suddenly around 5 PM. Patient states she has a history of migraines and that this is different than her typical migraines because of the severity of pain. Patient states it is the worst headache she has ever had. Patient has associated nausea and vomiting. She denies alcohol or drug use including marijuana. Patient has no other concerns at this time including fever, chills, double vision, blurry vision, shortness of breath, cough, chest pain, and abdominal pain. - Related Data Home Medications Medication Instructions Recorded Confirmed Methadone HCl [Methadone Intensol] 85 mg PO DIRECTED 10/10/17 11/13/21 Ascorbic Acid [Vitamin C] 500 mg PO HS 03/13/21 11/13/21 Multivitamins, Thera [Multivitamin 1 tab PO HS 03/13/21 11/13/21 (formulary)] Cholecalciferol [Vitamin D3 (25 25 mcg PO HS 11/13/21 11/13/21 Mcg = 1000 Iu)] Multivit-Min/Folic Acid/Biotin 1 cap PO HS 11/13/21 11/13/21 [Hair, Skin and Nails Softgel] QUEtiapine XR [SEROquel XR] 200 mg PO HS 11/13/21 11/13/21 Sertraline HCl [Zoloft] 150 mg PO HS 11/13/21 11/13/21 Previous Rx's Medication Instructions Recorded Ketorolac [Toradol] 10 mg PO Q8HR PRN #21 tab 11/13/21 Metoclopramide [Reglan] 10 mg PO DAILY PRN 7 Days #7 tab 11/13/21 Allergies Allergy/AdvReac Type Severity Reaction Status Date / Time No Known Allergies Allergy Verified 11/13/21 21:08 Review of Systems ROS Statement: Those systems with pertinent positive or pertinent negative responses have been documented in the HPI. ROS Other: All systems not noted in ROS Statement are negative. Past Medical History Past Medical History: No Reported History Additional Past Medical History / Comment(s): migraine History of Any Multi-Drug Resistant Organisms: None Reported Past Surgical History: No Surgical Hx Reported Past Anesthesia/Blood Transfusion Reactions: No Reported Reaction Past Psychological History: Anxiety, Depression Smoking Status: Current every day smoker Past Alcohol Use History: None Reported Past Drug Use History: IV Drug Use - Past Family History Father Additional Family Medical History / Comment(s): Father is alive at age 54 with no major medical problems. Mother Additional Family Medical History / Comment(s): Mother is alive at age 51 with no major medical problems. Sister(s) Additional Family Medical History / Comment(s): Patient has one sister with mental health issues. Patient has 1 brother with no major medical problems. Patient is 2 children ages 10 and 11 with no major medical problems. General Exam Limitations: no limitations General appearance: alert Head exam: Present: atraumatic, normocephalic, normal inspection Eye exam: Present: normal appearance, PERRL, EOMI. Absent: scleral icterus, conjunctival injection, periorbital swelling Neck exam: Present: normal inspection, full ROM. Absent: tenderness, men ingismus, lymphadenopathy Respiratory exam: Present: normal lung sounds bilaterally. Absent: respiratory distress, wheezes, rales, rhonchi, stridor Cardiovascular Exam: Present: regular rate, normal rhythm, normal heart sounds. Absent: systolic murmur, diastolic murmur, rubs, gallop, clicks GI/Abdominal exam: Present: soft, normal bowel sounds. Absent: distended, tenderness, guarding, rebound, rigid Neurological exam: Present: alert, oriented X3, CN II-XII intact Psychiatric exam: Present: normal affect, normal mood Skin exam: Present: warm, dry, intact, normal color. Absent: rash Course Vital Signs 11/13/21 11/13/21 17:46 19:02 Temperature 97.8 F Pulse Rate 63 122 H Respiratory 20 Rate Blood Pressure 132/72 O2 Sat by Pulse 95 Oximetry Medical Decision Making - Medical Decision Making This is a 36-year-old female presents with severe headache, nausea, and vomiting. Thorough history and examination were performed. Patient is alert and oriented during my evaluation however she does vomit twice. Due to severity of the headache CT of the brain and C-spine without contrast was obtained which was negative for acute process. Laboratory studies were unremarkable. COVID- 19 and influenza A/B are not detected. Patient given Zofran and migraine cocktail. On reevaluation patient feels significantly better. Patient requests long-term migraine medication as she just got a new insurance however I informed the patient that she will have to find a new primary care that takes her new insurance that can prescribe such medication. I did prescribe patient a course of Toradol and Reglan in the meantime. Return parameters discussed. Patient verbalizes understanding and is agreeable to plan. Dr. Ibarra is my attending. - Lab Data Result diagrams: 11/13/21 20:49 11/13/21 20:49 Lab Results 11/13/21 11/13/21 11/13/21 Range/Units 20:49 20:49 20:49 WBC 2.8 L (3.8-10.6) k/uL RBC 4.56 (3.80-5.40) m/uL Hgb 13.9 (11.4-16.0) gm/dL Hct 42.2 (34.0-46.0) % MCV 92.4 (80.0-100.0) fL MCH 30.5 (25.0-35.0) pg MCHC 33.0 (31.0-37.0) g/dL RDW 13.3 (11.5-15.5) % Plt Count 334 (150-450) k/uL MPV 7.8 Sodium 139 (137-145) mmol/L Potassium 3.7 (3.5-5.1) mmol/L Chloride 103 (98-107) mmol/L Carbon Dioxide 22 (22-30) mmol/L Anion Gap 14 mmol/L BUN 12 (7-17) mg/dL Creatinine 0.68 (0.52-1.04) mg/dL Est GFR (CKD-EPI)AfAm >90 (>60 ml/min/1.73 sqM) Est GFR (CKD-EPI)NonAf >90 (>60 ml/min/1.73 sqM) Glucose 90 (74-99) mg/dL Calcium 9.0 (8.4-10.2) mg/dL Total Bilirubin 0.8 (0.2-1.3) mg/dL AST 51 H (14-36) U/L ALT 34 (4-34) U/L Alkaline Phosphatase 94 (38-126) U/L Total Protein 8.9 H (6.3-8.2) g/dL Albumin 4.6 (3.5-5.0) g/dL Lipase 77 (23-300) U/L Influenza Type A (PCR) Not Detected (Not Detectd) Influenza Type B (PCR) Not Detected (Not Detectd) RSV (PCR) Not Detected (Not Detectd) SARS-CoV-2 (PCR) Not Detected (Not Detectd) Disposition Clinical Impression: Headache Disposition: HOME SELF-CARE Condition: Good Instructions (If sedation given, give patient instructions): Acute Headache (ED ) Additional Instructions: Take medication as directed. You will need to search for a primary care provider that takes your new insurance for evaluation and management of your migraines. Return to the emergency department if you experience new, concerning, or worsening symptoms. Prescriptions: Metoclopramide [Reglan] 10 mg PO DAILY PRN 7 Days #7 tab PRN Reason: Migraine Headache Ketorolac [Toradol] 10 mg PO Q8HR PRN #21 tab PRN Reason: Migraine Headache Is patient prescribed a controlled substance at d/c from ED?: No Referrals: Marco Castro DO [Primary Care Provider] - 1-2 days Time of Disposition: 22:02
[2021-11-13 21:11] LABS: ALT 34 U/L (4-34); AST 51 U/L (14-36); African American GFR (CKD) >90 (>60 ml/min/1.73 sqM); Albumin 4.6 g/dL (3.5-5.0); Alkaline Phosphatase 94 U/L (38-126); Anion Gap 14 mmol/L; Blood Urea Nitrogen 12 mg/dL (7-17); Carbon Dioxide 22 mmol/L (22-30); Chloride 103 mmol/L (98-107); Glucose 90 mg/dL (74-99); Lipase 77 U/L (23-300); Non-African American GFR(CKD) >90 (>60 ml/min/1.73 sqM); Sodium 139 mmol/L (137-145); Total Bilirubin 0.8 mg/dL (0.2-1.3); Total Protein 8.9 g/dL (6.3-8.2)
[2021-11-13 21:24] LABS: Potassium 3.7 mmol/L (3.5-5.1)
[2021-11-13 21:52] LABS: HCT 42.2 % (34.0-46.0); HGB 13.9 gm/dL (11.4-16.0); MCH 30.5 pg (25.0-35.0); MCV 92.4 fL (80.0-100.0); Mean Platelet Volume 7.8; Platelet Count 334 k/uL (150-450); RBC 4.56 m/uL (3.80-5.40); RDW 13.3 % (11.5-15.5); WBC 2.8 k/uL (3.8-10.6)
[2021-11-13 22:45] LABS: Band Neutrophils % 26 %; Eosinophils # (M) 0.03 k/uL (0-0.7); Metamyelocytes # (M) 0.03 k/uL (0); Metamyelocytes % 1 %; Monocytes # (M) 0.03 k/uL (0-1.0); Neutrophils % (M) 47 %; Nucleated Red Blood Cells 0 /100 WBC (0-0); Total Cells Counted 200
== END 2021-11-13 22:14 | disposition home or self-care (01) ==
LOC: EC 17:40
DX: R51.9 Headache, unspecified (principal); R11.2 Nausea with vomiting, unspecified; Z20.822 Contact with and (suspected) exposure to COVID-19; F32.A Depression, unspecified; F41.9 Anxiety disorder, unspecified; F17.200 Nicotine dependence, unspecified, uncomplicated; F15.90 Other stimulant use, unspecified, uncomplicated
CPT/HCPCS: 36415; 80053; 83690; 85025; 87636; 72125; 70450; 99284; 96374; 96375 ×3; 96361; J1100; J2765; J2405; J1885

== ENCOUNTER → 2021-11-20 | Outpatient (CLI) | payer BC, OTHER ==
--- NOTE | 2021-11-20 08:17 | US ---
EXAMINATION TYPE: US pelvis complete transvag DATE OF EXAM: 11/20/2021 COMPARISON: NONE CLINICAL HISTORY: N91.2AMENORRHEA, UNSPECIFIED. irregular menses. amenorrhea TECHNIQUE: Transvaginal (TV) and Transabdominal (TA) . Transabdominal sonographic images of the pel vis were acquired. Transvaginal sonographic images were medically necessary to better assess the fol lowing anatomy: left ovary Date of LMP: 2 weeks ago. prior LMP was 2 years ago EXAM MEASUREMENTS: Uterus: 8.1 x 3.2 x 5.2 cm Endometrial Stripe: 0.3 cm Right Ovary: 3.0 x 2.1 x 2.3 cm Left Ovary: 3.5 x 2.4 x 2.3 cm 1. Uterus: Anteverted heterogeneous 2. Endometrium: wnl 3. Right Ovary: follicles noted 4. Left Ovary: follicles noted 5. Bilateral Adnexa: wnl 6. Posterior cul-de-sac: wnl IMPRESSION: No distinct abnormality appreciated with certainty.
== END | disposition home or self-care (01) ==
LOC: RADUSWWP 07:31
PROVIDERS: ATTEND Family Medicine
DX: N91.2 Amenorrhea, unspecified (principal)
CPT/HCPCS: 76830; 76856

== ENCOUNTER 2022-04-22 11:18 | Emergency (ER) | payer BC, OTHER ==
[2022-04-22] MEDS ORDERED: SODIUM CHLORIDE 0.9% 2,000 ML IV STA (11:54)
[2022-04-22] MEDS ORDERED: HYDROmorphone 1 MG/ML 1 ML SYRINGE IM STA (12:30)
[2022-04-22 12:35] VITALS: RESP 18
--- NOTE | 2022-04-22 12:57 | ED ---
Nausea/Vomiting/Diarrhea HPI - General Chief complaint: Nausea/Vomiting/Diarrhea Stated complaint: vomiting Time Seen by Provider: 04/22/22 11:31 Source: patient Mode of arrival: ambulatory Limitations: no limitations - History of Present Illness Initial comments: This patient is 37-year-old woman presenting to have evaluation for nausea, vomiting, abdominal pain. The patient states she has had some intermittent symptoms going back a couple weeks. Her has also had some intermittent nausea and vomiting. The patient states that she had not been able to keep down her methadone dose today, and she is feeling much worse since that happened. Patient describes abdominal pains that will occur in different parts the abdomen, crampy, severe and episodic. No hematemesis. No bloody or tarry stools. MD complaint: nausea, vomiting, abdominal pain -: days(s) Description of Vomiting: food contents, watery Associated Abdominal Pain: Yes Location: diffuse Radiation: none Severity: moderate Quality: cramping Consistency: constant Improves with: none Worsens with: none - Related Data Home Medications Medication Instructions Recorded Confirmed Methadone HCl [Methadone Intensol] 85 mg PO DIRECTED 10/10/17 11/13/21 Ascorbic Acid [Vitamin C] 500 mg PO HS 03/13/21 11/13/21 Multivitamins, Thera [Multivitamin 1 tab PO HS 03/13/21 11/13/21 (formulary)] Cholecalciferol [Vitamin D3 (25 25 mcg PO HS 11/13/21 11/13/21 Mcg = 1000 Iu)] Multivit-Min/Folic Acid/Biotin 1 cap PO HS 11/13/21 11/13/21 [Hair, Skin and Nails Softgel] QUEtiapine XR [SEROquel XR] 200 mg PO HS 11/13/21 11/13/21 Sertraline HCl [Zoloft] 150 mg PO HS 11/13/21 11/13/21 Previous Rx's Medication Instructions Recorded Ketorolac [Toradol] 10 mg PO Q8HR PRN #21 tab 11/13/21 Metoclopramide [Reglan] 10 mg PO DAILY PRN 7 Days #7 tab 11/13/21 Allergies Allergy/AdvReac Type Severity Reaction Status Date / Time No Known Allergies Allergy Verified 04/22/22 11:29 Review of Systems ROS Statement: Those systems with pertinent positive or pertinent negative responses have been documented in the HPI. ROS Other: All systems not noted in ROS Statement are negative. Constitutional: Denies: fever Respiratory: Denies: cough, dyspnea Cardiovascular: Denies: chest pain, palpitations, edema Gastrointestinal: Reports: abdominal pain, nausea, vomiting, diarrhea. Denies: hematemesis, melena, hematochezia Genitourinary: Denies: dysuria, hematuria Musculoskeletal: Denies: back pain Skin: Denies: rash Neurological: Denies: headache, weakness Past Medical History Past Medical History: No Reported History Additional Past Medical History / Comment(s): migraine History of Any Multi-Drug Resistant Organisms: None Reported Past Surgical History: No Surgical Hx Reported Past Anesthesia/Blood Transfusion Reactions: No Reported Reaction Past Psychological History: Anxiety, Depression Smoking Status: Current every day smoker Past Alcohol Use History: None Reported Past Drug Use History: IV Drug Use, Marijuana - Past Family History Father Additional Family Medical History / Comment(s): Father is alive at age 54 with no major medical problems. Mother Additional Family Medical History / Comment(s): Mother is alive at age 51 with no major medical problems. Sister(s) Additional Family Medical History / Comment(s): Patient has one sister with mental health issues. Patient has 1 brother with no major medical problems. Patient is 2 children ages 10 and 11 with no major medical problems. General Exam Limitations: no limitations General appearance: alert, in no apparent distress Head exam: Present: atraumatic, normocephalic Eye exam: Present: normal appearance. Absent: scleral icterus, conjunctival injection Respiratory exam: Present: normal lung sounds bilaterally. Absent: respiratory distress, wheezes, rales, rhonchi, stridor Cardiovascular Exam: Present: regular rate, normal rhythm, normal heart sounds. Absent: systolic murmur, diastolic murmur, rubs, gallop GI/Abdominal exam: Present: soft. Absent: distended, tenderness, guarding, rebound, rigid, mass, pulsatile mass Extremities exam: Present: normal inspection, normal capillary refill. Absent: pedal edema, calf tenderness Back exam: Present: normal inspection. Absent: CVA tenderness (R), CVA tenderness (L) Neurological exam: Present: alert Skin exam: Present: warm, intact, normal color, diaphoretic. Absent: rash Course Vital Signs 09/07/0304/22/22 04/22/22 11:27 12:34 14:10 Temperature 97.6 F Pulse Rate 98 65 64 Respiratory 24 18 18 Rate Blood Pressure 169/89 128/83 112/70 O2 Sat by Pulse 100 100 96 Oximetry Medical Decision Making - Lab Data Result diagrams: 04/22/22 13:05 04/22/22 13:05 Lab Results 04/22/22 04/22/22 04/22/22 Range/Units 13:05 13:05 13:05 WBC 14.8 H (3.8-10.6) k/uL RBC 5.31 (3.80-5.40) m/uL Hgb 15.4 (11.4-16.0) gm/dL Hct 48.6 H (34.0-46.0) % MCV 91.4 (80.0-100.0) fL MCH 29.0 (25.0-35.0) pg MCHC 31.7 (31.0-37.0) g/dL RDW 12.9 (11.5-15.5) % Plt Count 332 (150-450) k/uL MPV 7.9 Neutrophils % 77 % Lymphocytes % 17 % Monocytes % 3 % Eosinophils % 2 % Basophils % 1 % Neutrophils # 11.3 H (1.3-7.7) k/uL Lymphocytes # 2.5 (1.0-4.8) k/uL Monocytes # 0.5 (0-1.0) k/uL Eosinophils # 0.3 (0-0.7) k/uL Basophils # 0.1 (0-0.2) k/uL Sodium 144 (137-145) mmol/L Potassium 3.9 (3.5-5.1) mmol/L Chloride 108 H (98-107) mmol/L Carbon Dioxide 16 L (22-30) mmol/L Anion Gap 20 mmol/L BUN 13 (7-17) mg/dL Creatinine 0.74 (0.52-1.04) mg/dL Est GFR (CKD-EPI)AfAm >90 (>60 ml/min/1.73 sqM) Est GFR (CKD-EPI)NonAf >90 (>60 ml/min/1.73 sqM) Glucose 168 H (74-99) mg/dL Calcium 9.9 (8.4-10.2) mg/dL Total Bilirubin 0.6 (0.2-1.3) mg/dL AST 74 H (14-36) U/L ALT 60 H (4-34) U/L Alkaline Phosphatase 107 (38-126) U/L Troponin I 0.013 (0.000-0.034) ng/mL Total Protein 9.2 H (6.3-8.2) g/dL Albumin 5.0 (3.5-5.0) g/dL Amylase 42 (30-110) U/L Lipase 82 (23-300) U/L Serum Alcohol <10 mg/dL - EKG Data -: EKG Interpreted by [facility] EKG shows normal: sinus rhythm (With sinus arrhythmia, rate 60 bpm), axis (Normal), intervals (Normal), ST-T waves (Normal) Rate: normal Interpretation: other (Possible old inferior infarct.) Disposition Clinical Impression: Vomiting, Opioid withdrawal Disposition: HOME SELF-CARE Condition: Fair Instructions (If sedation given, give patient instructions): Acute Nausea and Vomiting (ED) Is patient prescribed a controlled substance at d/c from ED?: No Referrals: Kieran Kulkarni MD [Primary Care Provider] - 1-2 days
[2022-04-22 13:12] LABS: Basophils # (A) 0.1 k/uL (0-0.2); Basophils % (A) 1 %; Eosinophils # (A) 0.3 k/uL (0-0.7); Eosinophils % (A) 2 %; HCT 48.6 % (34.0-46.0); HGB 15.4 gm/dL (11.4-16.0); Lymphocytes # (A) 2.5 k/uL (1.0-4.8); Lymphocytes % (A) 17 %; MCHC 31.7 g/dL (31.0-37.0); MCV 91.4 fL (80.0-100.0); Mean Platelet Volume 7.9; Monocytes # (A) 0.5 k/uL (0-1.0); Monocytes % (A) 3 %; Neutrophils # (A) 11.3 k/uL (1.3-7.7); Neutrophils % (A) 77 %; Platelet Count 332 k/uL (150-450); RBC 5.31 m/uL (3.80-5.40); RDW 12.9 % (11.5-15.5); WBC 14.8 k/uL (3.8-10.6)
[2022-04-22 13:22] LABS: ALT 60 U/L (4-34); AST 74 U/L (14-36); African American GFR (CKD) >90 (>60 ml/min/1.73 sqM); Alcohol <10 mg/dL; Alkaline Phosphatase 107 U/L (38-126); Amylase 42 U/L (30-110); Anion Gap 20 mmol/L; Blood Urea Nitrogen 13 mg/dL (7-17); Calcium 9.9 mg/dL (8.4-10.2); Carbon Dioxide 16 mmol/L (22-30); Chloride 108 mmol/L (98-107); Glucose 168 mg/dL (74-99); Lipase 82 U/L (23-300); Non-African American GFR(CKD) >90 (>60 ml/min/1.73 sqM); Sodium 144 mmol/L (137-145); Total Bilirubin 0.6 mg/dL (0.2-1.3); Total Protein 9.2 g/dL (6.3-8.2)
[2022-04-22 13:30] LABS: Potassium 3.9 mmol/L (3.5-5.1)
[2022-04-22] MEDS ORDERED: METHADONE 5 MG TAB PO STA (13:49)
[2022-04-22] MEDS ORDERED: ONDANSETRON ODT 4 MG TAB PO STA (14:12)
[2022-04-22 14:41] VITALS: BP 120/67; PULSE 72; TEMP 98.5
== END 2022-04-22 14:41 | disposition home or self-care (01) ==
LOC: EC 11:18
DX: R11.2 Nausea with vomiting, unspecified (principal); F11.93 Opioid use, unspecified with withdrawal; F41.9 Anxiety disorder, unspecified; F32.A Depression, unspecified; F17.200 Nicotine dependence, unspecified, uncomplicated; F12.90 Cannabis use, unspecified, uncomplicated; Z79.899 Other long term (current) drug therapy
CPT/HCPCS: 36415; 93005; 80053; 82150; 83690; 84484; 85025; 80320; 99284; 96372 ×2; J1170; S0109; J1790

== ENCOUNTER 2022-05-05 10:43 | Emergency (ER) | payer BC, OTHER ==
[2022-05-05 11:14] VITALS: TEMP 97.9
[2022-05-05] MEDS ORDERED: SODIUM CHLORIDE 0.9% 2,000 ML IV STA (11:27)
[2022-05-05] MEDS ORDERED: PROCHLORPERAZINE INJ 10 MG/2 ML VIAL IVP STA (11:28)
[2022-05-05 12:10] LABS: Basophils # (A) 0.1 k/uL (0-0.2); Basophils % (A) 0 %; Eosinophils # (A) 0.3 k/uL (0-0.7); Eosinophils % (A) 2 %; HCT 47.4 % (34.0-46.0); Lymphocytes # (A) 2.3 k/uL (1.0-4.8); Lymphocytes % (A) 17 %; MCH 29.5 pg (25.0-35.0); MCHC 31.8 g/dL (31.0-37.0); MCV 92.9 fL (80.0-100.0); Mean Platelet Volume 7.9; Monocytes # (A) 0.7 k/uL (0-1.0); Monocytes % (A) 5 %; Neutrophils # (A) 10.1 k/uL (1.3-7.7); Neutrophils % (A) 75 %; Platelet Count 318 k/uL (150-450); RDW 13.1 % (11.5-15.5); WBC 13.4 k/uL (3.8-10.6)
[2022-05-05 12:20] LABS: ALT 98 U/L (4-34); AST 79 U/L (14-36); African American GFR (CKD) >90 (>60 ml/min/1.73 sqM); Albumin 4.7 g/dL (3.5-5.0); Alkaline Phosphatase 110 U/L (38-126); Anion Gap 12 mmol/L; Blood Urea Nitrogen 8 mg/dL (7-17); Calcium 9.5 mg/dL (8.4-10.2); Carbon Dioxide 22 mmol/L (22-30); Chloride 108 mmol/L (98-107); Glucose 117 mg/dL (74-99); Lipase 50 U/L (23-300); Non-African American GFR(CKD) >90 (>60 ml/min/1.73 sqM); Potassium 4.4 mmol/L (3.5-5.1); Sodium 142 mmol/L (137-145); Total Bilirubin 0.4 mg/dL (0.2-1.3); Total Protein 8.3 g/dL (6.3-8.2)
[2022-05-05 12:42] LABS: Appearance,Urine Turbid (Clear); Bacteria,Urine Moderate /hpf; Bilirubin,Urine Negative (Negative); Blood,Urine Small (Negative); Color,Urine Yellow; Glucose,Urine (UA) Negative (Negative); Ketones,Urine Negative (Negative); Leukocyte Esterase,Urine Large (Negative); Mucus,Urine Occasional /hpf; Nitrite,Urine Negative (Negative); PH, Urine 5.5 (5.0-8.0); Protein,Urine Trace (Negative); RBC,Urine 2 /hpf (0-5); Specific Gravity,Urine 1.021 (1.001-1.035); Squamous Epithelial Cell,Urine 101 /hpf (0-4); Urobilinogen,Urine <2.0 mg/dL (<2.0); WBC,Urine 38 /hpf (0-5)
[2022-05-05 12:57] LABS: Cocaine Screen,Urine Not Detected (NotDetected); Phencyclidine Screen,Urine Not Detected (NotDetected); Urn Cannabinoid Scrn Detected (NotDetected)
[2022-05-05 12:58] LABS: Amphetamine Screen,Urine Detected (NotDetected); Barbiturate Screen,Urine Not Detected (NotDetected); Benzodiazepines Screen,Urine Not Detected (NotDetected); Methadone Screen, Urine Detected (NotDetected); Opiate Screen,Urine Not Detected (NotDetected); Oxycodone Screen, Urine Not Detected (NotDetected); Tricyclic Antidepressant,Urine Detected (NotDetected)
[2022-05-05] MEDS ORDERED: cloNIDine HCL 0.1 MG TAB PO STA (13:05)
[2022-05-05] MEDS ORDERED: LORazepam 2 MG/ML INJ IV STA (13:05)
[2022-05-05] MEDS ORDERED: HALOPERIDOL LACTATE 5 MG/ML 1 ML VIAL IM PRN (13:17)
[2022-05-05] MEDS ORDERED: HALOPERIDOL LACTATE 5 MG/ML 1 ML VIAL IM STA ×2 (13:17→13:20)
[2022-05-05] MEDS ORDERED: LORazepam 2 MG/ML INJ IM STA (13:18)
--- NOTE | 2022-05-05 14:00 | ED ---
Nausea/Vomiting/Diarrhea HPI - General Chief complaint: Nausea/Vomiting/Diarrhea Stated complaint: vomiting Time Seen by Provider: 05/05/22 11:18 Source: patient Mode of arrival: ambulatory Limitations: no limitations - History of Present Illness Initial comments: Patient is a 37-year-old female with a past medical history of IV drug use, heroin use, and marijuana use who presents to the emergency department with a chief complaint of vomiting for 3 weeks. Patient states she has experienced intermittent vomiting throughout the past 3 weeks. States some days she feels fine and other days she vomits up to 10 times. Denies fever, chills, abdominal pain. Does admit to some diarrhea this morning, nonbloody. States she is continuously sweating and feels anxious. Denies alcohol use. Admits to marijuana use, last use was yesterday. Denies other drug use. Patient takes methadone daily. Denies chest pain, palpitations, shortness of breath, burning with urination, blood in urine. - Related Data Home Medications Medication Instructions Recorded Confirmed Methadone HCl [Methadone Intensol] 85 mg PO DIRECTED 10/10/17 11/13/21 Ascorbic Acid [Vitamin C] 500 mg PO HS 03/13/21 11/13/21 Multivitamins, Thera [Multivitamin 1 tab PO HS 03/13/21 11/13/21 (formulary)] Cholecalciferol [Vitamin D3 (25 25 mcg PO HS 11/13/21 11/13/21 Mcg = 1000 Iu)] Multivit-Min/Folic Acid/Biotin 1 cap PO HS 11/13/21 11/13/21 [Hair, Skin and Nails Softgel] QUEtiapine XR [SEROquel XR] 200 mg PO HS 11/13/21 11/13/21 Sertraline HCl [Zoloft] 150 mg PO HS 11/13/21 11/13/21 Previous Rx's Medication Instructions Recorded Ketorolac [Toradol] 10 mg PO Q8HR PRN #21 tab 11/13/21 Metoclopramide [Reglan] 10 mg PO DAILY PRN 7 Days #7 tab 11/13/21 Allergies Allergy/AdvReac Type Severity Reaction Status Date / Time No Known Allergies Allergy Verified 05/05/22 11:14 Review of Systems ROS Statement: Those systems with pertinent positive or pertinent negative responses have been documented in the HPI. ROS Other: All systems not noted in ROS Statement are negative. Past Medical History Past Medical History: No Reported History Additional Past Medical History / Comment(s): migraine History of Any Multi-Drug Resistant Organisms: None Reported Past Surgical History: No Surgical Hx Reported Past Anesthesia/Blood Transfusion Reactions: No Reported Reaction Past Psychological History: Anxiety, Depression Smoking Status: Current every day smoker Past Alcohol Use History: None Reported Past Drug Use History: Heroin, IV Drug Use, Marijuana - Past Family History Father Additional Family Medical History / Comment(s): Father is alive at age 54 with no major medical problems. Mother Additional Family Medical History / Comment(s): Mother is alive at age 51 with no major medical problems. Sister(s) Additional Family Medical History / Comment(s): Patient has one sister with mental health issues. Patient has 1 brother with no major medical problems. Patient is 2 children ages 10 and 11 with no major medical problems. General Exam Limitations: no limitations General appearance: alert, anxious Eye exam: Present: normal appearance, PERRL, EOMI. Absent: scleral icterus, conjunctival injection, periorbital swelling Respiratory exam: Present: normal lung sounds bilaterally. Absent: respiratory distress, wheezes, rales, rhonchi, stridor Cardiovascular Exam: Present: regular rate, normal rhythm, normal heart sounds. Absent: systolic murmur, diastolic murmur, rubs, gallop, clicks GI/Abdominal exam: Present: soft, normal bowel sounds. Absent: distended, tenderness, guarding, rebound, rigid Neurological exam: Present: alert, oriented X3, CN II-XII intact Psychiatric exam: Present: normal affect, anxious. Absent: normal mood Skin exam: Present: warm, intact, normal color, diaphoretic. Absent: dry, rash Course Vital Signs 05/05/22 05/05/22 05/05/22 11:11 13:20 14:20 Temperature 97.9 F Pulse Rate 96 94 86 Respiratory 16 20 16 Rate Blood Pressure 162/103 147/68 125/63 O2 Sat by Pulse 97 97 98 Oximetry Medical Decision Making - Medical Decision Making This is a 37 year-old female who presents with vomiting. Patient hypertensive at 162/103. Pulse is 96. Patient appears very anxious and diaphoretic. EKG shows sinus rhythm with no new ST segment or T-wave changes. Laboratory studies obtained. There is mild leukocytosis at 13.4, likely reactive. Urine drug screen reveals methadone, tricyclic antidepressants, amphetamines, marijuana. Other laboratory studies are relatively unremarkable. Patient given fluid bolus and Compazine which controlled nausea. Also given Catapres for high blood pressure with good response. Patient continuously anxious during her emergency stay and paces in the room.. States she feels like her skin is crawling. Ativan and Haldol given which improved symptoms significantly. This is possibly methadone withdrawal or cyclic vomiting syndrome. Discussed with patient in detail who is encouraged to stop smoking marijuana. Patient has Zofran at home. Patient reevaluated at bedside at 1405 and is in stable medical condition for discharge. Dr. Ibarra is my attending. - Lab Data Result diagrams: 05/05/22 11:37 05/05/22 11:37 Lab Results 05/05/22 05/05/22 05/05/22 Range/Units 11:37 11:37 11:37 WBC 13.4 H (3.8-10.6) k/uL RBC 5.10 (3.80-5.40) m/uL Hgb 15.0 (11.4-16.0) gm/dL Hct 47.4 H (34.0-46.0) % MCV 92.9 (80.0-100.0) fL MCH 29.5 (25.0-35.0) pg MCHC 31.8 (31.0-37.0) g/dL RDW 13.1 (11.5-15.5) % Plt Count 318 (150-450) k/uL MPV 7.9 Neutrophils % 75 % Lymphocytes % 17 % Monocytes % 5 % Eosinophils % 2 % Basophils % 0 % Neutrophils # 10.1 H (1.3-7.7) k/uL Lymphocytes # 2.3 (1.0-4.8) k/uL Monocytes # 0.7 (0-1.0) k/uL Eosinophils # 0.3 (0-0.7) k/uL Basophils # 0.1 (0-0.2) k/uL Sodium 142 (137-145) mmol/L Potassium 4.4 (3.5-5.1) mmol/L Chloride 108 H (98-107) mmol/L Carbon Dioxide 22 (22-30) mmol/L Anion Gap 12 mmol/L BUN 8 (7-17) mg/dL Creatinine 0.63 (0.52-1.04) mg/dL Est GFR (CKD-EPI)AfAm >90 (>60 ml/min/1.73 sqM) Est GFR (CKD-EPI)NonAf >90 (>60 ml/min/1.73 sqM) Glucose 117 H (74-99) mg/dL Calcium 9.5 (8.4-10.2) mg/dL Total Bilirubin 0.4 (0.2-1.3) mg/dL AST 79 H (14-36) U/L ALT 98 H (4-34) U/L Alkaline Phosphatase 110 (38-126) U/L Total Protein 8.3 H (6.3-8.2) g/dL Albumin 4.7 (3.5-5.0) g/dL Lipase 50 (23-300) U/L Urine Color Yellow Urine Appearance Turbid H (Clear) Urine pH 5.5 (5.0-8.0) Ur Specific [place] 1.021 (1.001-1.035) Urine Protein Trace H (Negative) Urine Glucose (UA) Negative (Negative) Urine Ketones Negative (Negative) Urine Blood Small H (Negative) Urine Nitrite Negative (Negative) Urine Bilirubin Negative (Negative) Urine Urobilinogen <2.0 (<2.0) mg/dL Ur Leukocyte Esterase Large H (Negative) Urine RBC 2 (0-5) /hpf Urine WBC 38 H (0-5) /hpf Ur Squamous Epith Cells 101 H (0-4) /hpf Urine Bacteria Moderate H (None) /hpf Urine Mucus Occasional H (None) /hpf Urine HCG, Qual (Not Detectd) Urine Opiates Screen (NotDetected) Ur Oxycodone Screen (NotDetected) Urine Methadone Screen (NotDetected) Ur Propoxyphene Screen (NotDetected) Ur Barbiturates Screen (NotDetected) U Tricyclic Antidepress (NotDetected) Ur Phencyclidine Scrn (NotDetected) Ur Amphetamines Screen (NotDetected) U Methamphetamines Scrn (NotDetected) U Benzodiazepines Scrn (NotDetected) Urine Cocaine Screen (NotDetected) U Marijuana (THC) Screen (NotDetected) Coronavirus (PCR) (Not Detectd) Influenza Type A RNA (Not Detectd) Influenza Type B (PCR) (Not Detectd) 05/05/22 05/05/22 05/05/22 Range/Units 11:37 11:37 11:37 WBC (3.8-10.6) k/uL RBC (3.80-5.40) m/uL Hgb (11.4-16.0) gm/dL Hct (34.0-46.0) % MCV (80.0-100.0) fL MCH (25.0-35.0) pg MCHC (31.0-37.0) g/dL RDW (11.5-15.5) % Plt Count (150-450) k/uL MPV Neutrophils % % Lymphocytes % % Monocytes % % Eosinophils % % Basophils % % Neutrophils # (1.3-7.7) k/uL Lymphocytes # (1.0-4.8) k/uL Monocytes # (0-1.0) k/uL Eosinophils # (0-0.7) k/uL Basophils # (0-0.2) k/uL Sodium (137-145) mmol/L Potassium (3.5-5.1) mmol/L Chloride (98-107) mmol/L Carbon Dioxide (22-30) mmol/L Anion Gap mmol/L BUN (7-17) mg/dL Creatinine (0.52-1.04) mg/dL Est GFR (CKD-EPI)AfAm (>60 ml/min/1.73 sqM) Est GFR (CKD-EPI)NonAf (>60 ml/min/1.73 sqM) Glucose (74-99) mg/dL Calcium (8.4-10.2) mg/dL Total Bilirubin (0.2-1.3) mg/dL AST (14-36) U/L ALT (4-34) U/L Alkaline Phosphatase (38-126) U/L Total Protein (6.3-8.2) g/dL Albumin (3.5-5.0) g/dL Lipase (23-300) U/L Urine Color Urine Appearance (Clear) Urine pH (5.0-8.0) Ur Specific [place] (1.001-1.035) Urine Protein (Negative) Urine Glucose (UA) (Negative) Urine Ketones (Negative) Urine Blood (Negative) Urine Nitrite (Negative) Urine Bilirubin (Negative) Urine Urobilinogen (<2.0) mg/dL Ur Leukocyte Esterase (Negative) Urine RBC (0-5) /hpf Urine WBC (0-5) /hpf Ur Squamous Epith Cells (0-4) /hpf Urine Bacteria (None) /hpf Urine Mucus (None) /hpf Urine HCG, Qual Not Detected (Not Detectd) Urine Opiates Screen (NotDetected) Ur Oxycodone Screen (NotDetected) Urine Methadone Screen (NotDetected) Ur Propoxyphene Screen (NotDetected) Ur Barbiturates Screen (NotDetected) U Tricyclic Antidepress (NotDetected) Ur Phencyclidine Scrn (NotDetected) Ur Amphetamines Screen (NotDetected) U Methamphetamines Scrn (NotDetected) U Benzodiazepines Scrn (NotDetected) Urine Cocaine Screen (NotDetected) U Marijuana (THC) Screen (NotDetected) Coronavirus (PCR) Not Detected (Not Detectd) Influenza Type A RNA Not Detected (Not Detectd) Influenza Type B (PCR) Not Detected (Not Detectd) 05/05/22 Range/Units 11:37 WBC (3.8-10.6) k/uL RBC (3.80-5.40) m/uL Hgb (11.4-16.0) gm/dL Hct (34.0-46.0) % MCV (80.0-100.0) fL MCH (25.0-35.0) pg MCHC (31.0-37.0) g/dL RDW (11.5-15.5) % Plt Count (150-450) k/uL MPV Neutrophils % % Lymphocytes % % Monocytes % % Eosinophils % % Basophils % % Neutrophils # (1.3-7.7) k/uL Lymphocytes # (1.0-4.8) k/uL Monocytes # (0-1.0) k/uL Eosinophils # (0-0.7) k/uL Basophils # (0-0.2) k/uL Sodium (137-145) mmol/L Potassium (3.5-5.1) mmol/L Chloride (98-107) mmol/L Carbon Dioxide (22-30) mmol/L Anion Gap mmol/L BUN (7-17) mg/dL Creatinine (0.52-1.04) mg/dL Est GFR (CKD-EPI)AfAm (>60 ml/min/1.73 sqM) Est GFR (CKD-EPI)NonAf (>60 ml/min/1.73 sqM) Glucose (74-99) mg/dL Calcium (8.4-10.2) mg/dL Total Bilirubin (0.2-1.3) mg/dL AST (14-36) U/L ALT (4-34) U/L Alkaline Phosphatase (38-126) U/L Total Protein (6.3-8.2) g/dL Albumin (3.5-5.0) g/dL Lipase (23-300) U/L Urine Color Urine Appearance (Clear) Urine pH (5.0-8.0) Ur Specific [place] (1.001-1.035) Urine Protein (Negative) Urine Glucose (UA) (Negative) Urine Ketones (Negative) Urine Blood (Negative) Urine Nitrite (Negative) Urine Bilirubin (Negative) Urine Urobilinogen (<2.0) mg/dL Ur Leukocyte Esterase (Negative) Urine RBC (0-5) /hpf Urine WBC (0-5) /hpf Ur Squamous Epith Cells (0-4) /hpf Urine Bacteria (None) /hpf Urine Mucus (None) /hpf Urine HCG, Qual (Not Detectd) Urine Opiates Screen Not Detected (NotDetected) Ur Oxycodone Screen Not Detected (NotDetected) Urine Methadone Screen Detected H (NotDetected) Ur Propoxyphene Screen Not Detected (NotDetected) Ur Barbiturates Screen Not Detected (NotDetected) U Tricyclic Antidepress Detected H (NotDetected) Ur Phencyclidine Scrn Not Detected (NotDetected) Ur Amphetamines Screen Detected H (NotDetected) U Methamphetamines Scrn Not Detected (NotDetected) U Benzodiazepines Scrn Not Detected (NotDetected) Urine Cocaine Screen Not Detected (NotDetected) U Marijuana (THC) Screen Detected H (NotDetected) Coronavirus (PCR) (Not Detectd) Influenza Type A RNA (Not Detectd) Influenza Type B (PCR) (Not Detectd) Disposition Clinical Impression: Methadone dependence, Cyclic vomiting syndrome Disposition: HOME SELF-CARE Condition: Good Instructions (If sedation given, give patient instructions): Cyclic Vomiting Syndrome (ED) Additional Instructions: Please follow up with primary care provider. It is important to stop using marijuana. Take home prescription of Zofran as needed for nausea. Return to the emergency department experience new, concerning, or worsening symptoms. Is patient prescribed a controlled substance at d/c from ED?: No Referrals: Kieran Kulkarni MD [Primary Care Provider] - 1-2 days Time of Disposition: 14:23
[2022-05-05 14:21] VITALS: BP 125/63; PULSE 86; RESP 16
== END 2022-05-05 14:31 | disposition home or self-care (01) ==
LOC: EC 10:43
DX: R11.15 Cyclical vomiting syndrome unrelated to migraine (principal); F11.20 Opioid dependence, uncomplicated; D72.829 Elevated white blood cell count, unspecified; F17.200 Nicotine dependence, unspecified, uncomplicated; Z20.822 Contact with and (suspected) exposure to COVID-19
CPT/HCPCS: 36415; 93005; 80053; 83690; 85025; 81001; 81025; 80306; 87086; 87502; 87635; 99284; 96374; 96372; 96361; J2060; J0780; J1630